=== PATIENT | female | born 1965 | race Caucasian/White ===

== ENCOUNTER → 2025-03-23 | Outpatient (CLI) | payer OTHER, SELFPAY ==
--- OUTSIDE RECORDS SUMMARY | 2025-03-23 08:31 | XMS RPT_ITS | CCD ---
Author Organization [facility] Care Team Providers Care Search Planner Name Role Phone Unavailable Primary Care Provider Unavailabl e ROMAR DO, DR BAEZ Primary Care Physician [phone] Mesfin PT, Vandana Unavailable Sophie GRACIA MD, DR MATEO Rahman Attending Unavailabl e ROMAR DO, DR BAEZ Primary Care Unavailable WILLIE , MARCK Attending Unavailable ROMAR DO, DR BAEZ Primary Care Unavailable SAMIA BARAJAS, DR MATEO Rahman Attending Unavailabl e ROMAR DO, DR BAEZ Primary Care Unavailable SAMIA BARAJAS, DR MATEO Rahman Attending Unavailabl e ROMAR DO, DR BAEZ Primary Care Unavailable ROMAR DO, DR BAEZ Primary Care Unavailable DEEP VELAZCO MD Attending Unavailable ROMAR DO, DR BAEZ Attending Unavailable ROMAR DO, DR BAEZ Primary Care Unavailable JHOANA HINOJOSA MD Attending Unavailable ROMAR DO, DR BAEZ Primary Care Unavailable ROMAR DO, DR BAEZ Attending Unavailable ROMAR DO, DR BAEZ Primary Care Unavailable SAMIA BARAJAS, DR MATEO Rahman Attending Unavailabl e ROMAR DO, DR BAEZ Primary Care Unavailable ROMAR DO, DR BAEZ Primary Care Unavailable ROMAR DO, DR BAEZ Attending Unavailable FROMMELT , MADY Attending Unavailable ROMAR DO, DR BAEZ Primary Care Unavailable WILLIE , MARCK Consulting Unavailable WILLIE , MARCK Attending Unavailable ROMAR DO, DR BAEZ Primary Care Unavailable Unavailable Primary Care Provider Unavailabl e James DODGE, Luis Primary Care Provider [phone] Unavailable Primary Care Provider UnavailMATEO Witt Referring Unavailable RAFAEL LOZANO Attending Unavailable LUIS RAMIREZ Primary Care Unavailable LUIS RAMIREZ Primary Care Unavailable YENIFER VINES Referring Unavailable GERA FRANCOIS Attending Unavailable YENIFER VINES Attending Unavailable ROXANNA CHAPA Referring Unavailable ROXANNA CHAPA Referring Unavailable ROMASHKAN DO, DR BAEZ Primary Care Unavailable SAMIA BARAJAS, DR MATEO Rahman Attending Unavailabl e ROMAR DO, DR BAEZ Primary Care Unavailable SAMIA BARAJAS, DR MATEO Rahman Attending Unavailabl e ROMAR DO, DR BAEZ Primary Care Unavailable SAMIA BARAJAS, DR MATEO Rahman Attending Unavailabl e ROMAR DO, DR BAEZ Primary Care Unavailable SAMIA BARAJAS, HYACINTH Attending Unavailable ROMAR DO, DR BAEZ Primary Care Unavailable ROMAR DO, DR BAEZ Consulting Unavailable SEFFEHARRISON WATCH TRAIN ASSEMBLER-SQL SERVER CONSULTANT, EVAN Attending Unavai labneetu RAMIREZ DO, DR BAEZ Primary Care Unavailable SAMIA BARAJAS, DR MATEO Rahman Attending Unavailabl e JAMES DO, DR BAEZ Primary Care Unavailable SAMIA BARAJAS, DR MATEO Rahman Attending UnavailLuis Turner Primary Care Unavailable Assessment, Health Risk Attending UnavailAUSTYN Graves Referring Unavailable AUSTYN AVENDANO Attending Unavailable Luis Ramirez Primary Care Unavailable Allergies Allergy Classification Reported Allergen(s) Allergy Type Date of Onset Reaction(s) Facility (20 sources) Codeine; Translations: [codeine] Drug Allergy 7 Intolerance, GI Upset [facility] (1 source) ALLERGIES NOT ON FILE; Translations: [ALLERGIES NOT ON FILE] Propensity to adverse reactions (disorder) [facility] 2 Repository (1 source) Codeine Drug Allergy 5 [facility] Repository Medications Current Medications Medication Drug Class(es) Dates Sig (Normalized) Sig (Original) acetaminophen 325 mg / HYDROcodone bitartrate 5 mg oral tablet (2 sources) Opioid Agonist Start: 01-07-2023 End: 01-14-2023 take 1 tablet by mouth every four hours as needed for pain [place] 325- 5 mg oral tablet Dose = 1 tab(s), Oral, q4h, PRN as needed for pain, X 7 day(s), # 20 tab(s), 0 Refill(s), Pharmacy: [facility]/pharmacy #[id number], 162.6, cm, 01/07/23 11:35:00 EDT, Height, 64, kg, 01/07/23 11:35:00 EDT, Dosing Weight Start Date: 01/07/23 Stop Date: 01/14/23 Status: Ordered DOCOSAHEXANOIC ACID/EPA (FISH OIL ORAL) (13 sources) DOCOSAHEXANOIC ACID/EPA (FISH OIL ORAL) Take by mouth. Active DOCOSAHEXANOIC A VETO/EPA (FISH OIL ORAL) Take by mouth. 0 Active Comment on above: Take by mouth. ergocalciferol, vitamin D2, (VITAMIN D2 ORAL) (13 sources) ergocalciferol, vitamin D2, (VITAMIN D2 ORAL) Take by mouth. Active ergocalciferol, vitamin D2, (VITAMIN D2 ORAL) Take by mouth. 0 Active Comment on above: Take by mouth. Estradiol (9 sources) Estrogen ESTRADIOL ORAL T holley by mouth. Estriold 2mg/ Estradiol 0.25mg/ estrone 0.25/ DHEA 5mg/ testosterone 0.5mg/ progesterone 200mg BELLA Active Fish Oils (12 sources) Start: 12-23-2022 Fish Oil 1000 mg oral capsule Dose : 1,000 mg = 1 cap(s), Oral, qDay, # 90 cap(s), 0 Refill(s) Start Date: 12/23/22 Status: Ordered Medication Dispense Status: Completed Quantity: 90.0 Unit: cap(s) Total Allowed Fills: 1 Fills Dispensed: 0 Start: 12-23-2022 Fish Oil 1000 mg oral capsule Dose : 1,000 mg = 1 cap(s), Oral, qDay, # 90 cap(s), 0 Refill(s) Start Date: 12/23/22 Status: Ordered Quantity: 90.0 Unit: cap(s) Repeat number: 1 Start: 12-23-2022 Fish Oil 1000 mg oral capsule Dose : 1,000 mg = 1 cap(s), Oral, qDay, # 90 cap(s), 0 Refill(s) Start Date: 12/23/22 Status: Ordered herbal/nutritional product (12 sources) Start: 12-23-2022 take 1 capsule by mouth once daily herbal/nutritional product 1 CAP, Oral, Daily, CURAMED, 0 Refill(s) Start Date: 12/23/22 Status: Ordered Medication Dispense Status: Completed Total Allowed Fills: 1 Fills Dispensed: 0 Start: 12-23-2022 take 1 capsule by mo uth once daily herbal/nutritional product 1 CAP, Oral, Daily, CURAMED, 0 Refill(s) Start Date: 12/23/22 Status: Ordered Repeat number: 1 Start: 12-23-2022 take 1 capsule by [facility] once daily herbal/nutritional product 1 CAP, Oral, Daily, CURAMED, 0 Refill(s) Start Date: 12/23/22 Status: Ordered hydrocortisone 25 mg/ml topical cream (3 sources) Corticosteroid Start: 10-29-2022 End: 11-08-2022 hydrocortisone 2.5% topical cream 1, Topical, TID, X 5 day(s), # 20 gram(s), 1 Refill(s), Pharmacy: [facility]/pharmacy #[id number], 162.7, cm, 10/29/22 8:29:00 EDT, Height, 64.3 Start Date: 10/29/22 Stop Date: 11/08/22 Status: Ordered Iodine liqd (13 sources) Iodine liqd Acti ve Iodine liqd magnesium gluconate 250 mg oral tablet (12 sources) Start: 12-23-2022 take 2 tablets by mouth once daily at bedtime magnesium gluconate 250 mg oral tablet 500 mg Dose = 2 tab(s), Oral, qHS, # 30 tab(s), 0 Refill(s) Start Date: 12/23/22 Status: Ordered Medication Dispense Status: Completed Quantity: 30.0 Unit: tab(s) Total Allowed Fills: 1 Fills Dispensed: 0 magnesium glycinate 100 mg oral tablet (13 sources) Magnesium Glycin ate 100 mg tab Active Methyl B-12 (4 sources) Start: 05-16-2024 Methyl B-12 Ch ewed, qDay, 0 Refill(s) Start Date: 05/16/24 Status: Ordered Medication Dispense Status: Completed Total Allowed Fills: 1 Fills Dispensed: 0 Start: 05-16-2024 Methyl B-12 Ch ewed, qDay, 0 Refill(s) Start Date: 05/16/24 Status: Ordered Repeat number: 1 Misc Medication (18 sources) Start: 07-18-2020 Misc Medicatio n hormone replacement cream, 0 Refill(s), 64.8 Start Date: 07/18/20 Status: Ordered Medication Dispense Status: Completed Total Allowed Fills: 1 Fills Dispensed: 0 Start: 07-18-2020 Misc Medicatio n hormone replacement cream, 0 Refill(s), 64.8 Start Date: 07/18/20 Status: Ordered Repeat number: 1 Start: 07-18-2020 Misc Medicatio n hormone replacement cream, 0 Refill(s), 64.8 Start Date: 07/18/20 Status: Ordered Multivitamin preparation (12 sources) Start: 12-23-2022 take 1 tablet by mouth once daily Multivitamin Dose = 1 tab(s), Oral, Daily, 0 Refill(s) Start Date: 12/23/22 Status: Ordered Medication Dispense Status: Completed Total Allowed Fills: 1 Fills Dispensed: 0 Start: 12-23-2022 take 1 tablet by bruna th once daily Multivitamin Dose = 1 tab(s), Oral, Daily, 0 Refill(s) Start Date: 12/23/22 Status: Ordered Repeat number: 1 Start: 12-23-2022 take 1 tablet by bruna th once daily Multivitamin Dose = 1 tab(s), Oral, Daily, 0 Refill(s) Start Date: 12/23/22 Status: Ordered MULTIVITAMIN TAB (13 sources) Start: 04-03-2008 MULTIVITAMIN T AB Take one(1) tablet daily. 0 04/03/2008 Active Comment on above: Take one(1) tablet d aily. polyethylene glycol 3350 797402 mg / potassium chloride 2970 mg / sodium bicarbonate 6740 mg / sodium chloride 5860 mg / sodium sulfate 07573 mg powder for oral solution (3 sources) Osmotic Laxative Start: 01-03-2024 End: 01-03-2024 peg 3350-Electrolytes (GOLYTELY) 236-22.74-6.74 -5.86 gram suspension Indications: Screen for colon cancer Take 4,000 mL by mouth one time only for 1 dose. Refer to printed prep instructions from your provider. 4000 mL 01/03/2024 01/03/2024 Active Completed/Discontinued Medications Medication Drug Class(es) Dates Sig (Normalized) Sig (Original) Ascorbic Acid (2 sources) Vitamin C End: 10-31-2021 ascorbic acid (VITAMIN C ORAL) Take by mouth. 0 10/31/2021 Discontinued (Course of therapy completed) ascorbic acid (V ITAMIN C ORAL) Take by mouth. 0 Active Comment on above: Take by mouth. calcium chloride 0.0014 meq/ml / potassium chloride 0.004 meq/ml / sodium chloride 0.103 meq/ml / sodium lactate 0.028 meq/ml injectable solution (1 source) Start: 2023 End: 2023 take 75 mL intravenously every hour 75 mL/hr, INTRAVENOUS, CONTINUOUS, Starting on Wed01/11/24 at 0830, Until Wed01/11/24 at 0945, Preprocedure diphenhydrAMINE (1 source) Histamine-1 Receptor Antagonist Start: 2023 End: 2023 12.5-50 mg, INTRAVENOUS, DIRECTED, Starting on Wed01/11/24 at 0900, Until Wed01/11/24 at 1259, DOSING DIRECTED BY PHYSICIAN FOR PROCEDURAL SEDATION ONLY, Intraprocedure [id number] 0.3 ml EPINEPHrine 1 mg/ml auto-injector (20 sources) alpha-Adrenergic Agonist, beta-Adrenergic Agonist, Catecholamine Start: 2020 EpiPen 2-Etienne 0.3 mg injectable kit Dose : 0.3 mg =, Intramuscular, AsDirected, PRN Allergic reaction, may repeat if necessary after 5 minutes, go to the emergency department if used., # 1 kit(s), 0 Refill(s), Pharmacy: [facility]/pharmacy #[id number], 161, cm, 08/08/20 16:33:00 EDT, Height, kg, 08/08/20 16:33:00 EDT, Dosing Weight Start Date: 12/06/20 Status: Ordered Medication Dispense Status: Completed Quantity: 1.0 Unit: kit(s) Total Allowed Fills: 1 Fills Dispensed: 0 Start: 08-02-2019 EPINEPHrine (E PIPEN) 0.3 mg/0.3 mL auto-injector USE DIRECTED NEEDED FOR ALLERGIC REACTION 08/02/2019 Active Comment on above: USE DIRECTED N EEDED FOR ALLERGIC REACTION 1 ml fentaNYL 0.05 mg/ml injection (1 source) Opioid Agonist Start: 01-11-2024 End: 01-11-2024 25-100 mcg, INTRAVENOUS, DIRECTED, Starting on Wed01/11/24 at 0900, Until Wed01/11/24 at 1259, DOSING DIRECTED BY PHYSICIAN FOR PROCEDURAL SEDATION ONLY, Intraprocedure 5 ml midazolam 1 mg/ml injection (1 source) Benzodiazepine Start: 01-11-2024 End: 01-11-2024 1-5 mg, INTRAVENOUS, DIRECTED, Starting on Wed01/11/24 at 0900, Until Wed01/11/24 at 1259, DOSING DIRECTED BY PHYSICIAN FOR PROCEDURAL SEDATION ONLY, Intraprocedure QUERCETIN DIHYDRATE, BULK, MISC (9 sources) Start: 10-15-2020 End: 01-03-2024 QUERCETIN DIHYDRATE, BULK, MISC 10/15/2020 01/03/2024 Discontinued (Discontinued by Patient) Start: 10-15-2020 QUERCETIN DIHY DRATE, BULK, MISC topical cream metered-dose d ev luz (9 sources) End: 01-03-2024 topical cream metered-dose d ev luz Hormone replacement cream 01/03/2024 Discontinued (Discontinued by Patient) topical cream me tered-dose dev luz Hormone replacement cream 0 Active Comment on above: Hormone replacement cream Problems Active Problems Problem Classification Problem Date Documented Date Episodic/Chronic Calculus of urinary tract (20 sources) Kidney stone; Translations: [Urolith] 07-18-2020 Episodic Chronic kidney disease (18 sources) Chronic kidney disease stage 3A 08-08-2020 Chronic Chronic obstructive pulmonary disease and bronchiectasis (18 sources) Chronic obstructive lung disease 07-18-2020 Chronic Diseases of white blood cells (10 sources) Leukopenia 08-08-2020 Chronic Disorders of lipid metabolism (4 sources) Hyperlipidemia; Translations: [Hyperlipidemia, unspecified] Onset: 04-01-2024 04-01-2024 Chronic Immunizations and screening for infectious disease (9 sources) Patient encounter status; Translations: [Encounter for screening for human papillomavirus (HPV)] Onset: 01-11-2024 12-31-2023 Episodic Nonmalignant breast conditions (1 source) Breast finding ; Translations: [Dense breast tissue] 01-01-2025 Episodic Osteoarthritis (18 sources) [place] node 08-12-2020 Chronic Other circulatory disease (18 sources) Respiratory crackles 07-18-2020 Episodic Other congenital anomalies (15 sources) Thyroglossal duct cyst 10-22-2022 Chronic Other congenital anomalies (2 sources) Congenital malformations of other endocrine glands; 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] Onset: 01-07-2023 Chronic Other connective tissue disease (1 source) Acquired trigger finger of left middle finger; Translations: [Trigger finger, left middle finger] Episodic Other connective tissue disease (1 source) Acquired trigger finger of right middle finger; Translations: [Trigger finger, right middle finger] Episodic Other connective tissue disease (20 sources) Triggering of digit; Translations: [Trigger finger, right little finger] Onset: 08-29-2020 08-29-2020 Episodic Other connective tissue disease (18 sources) Pain in finger 07-18-2020 Episodic Other hematologic conditions (18 sources) History of immune disorder 12-06-2020 Episodic Other lower respiratory disease (1 source) Shortness of breath; Translations: [Shortness of breath] Onset: 03-20-2025 Episodic Other lower respiratory disease (1 source) Other disorders of lung; Translations: [Other disorders of lung] Onset: 03-20-2025 Episodic Other screening for suspected conditions (not mental disorders or infectious disease) (18 sources) Imaging of thorax abnormal 07-18-2020 Chronic Other screening for suspected conditions (not mental disorders or infectious disease) (4 sources) Cancer cervix screening status; Translations: [Encounter for screening for malignant neoplasm of cervix] Onset: 01-11-2024 12-31-2023 Episodic Other skin disorders (17 sources) Mass of neck 09-02-2022 Episodic Other skin disorders (15 sources) Inflammatory dermatosis 10-29-2022 Episodic Thyroid disorders (16 sources) Mass of thyroid gland 10-07-2022 Chronic Unclassified (18 sources) 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 07-18-2020 Unclassified (9 sources) Glomerular filtration rate decreased 03-01-2023 Unclassified (1 source) Dense breast tissue; Translations: [Dense breast tissue] Onset: 01-01-2025 Past or Other Problems Problem Classification Problem Date Documented Date Episodic/Chronic Intestinal obstruction without hernia (13 sources) 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 Out See Comments Normal [facility] Comment on above: Order Comment: omega check whole blood to [place] [id number] Performed By: #### M ISC ####[facility] [place] [id number] 02-08-2025 Reverse T3 10.5 ng/dL Normal 9.2-24.1 [facility] Comment on above: Result Comment: This test was developed and its performance characteristics determined by [facility]. It has not been cleared or approved by the Food and Drug Administration. Performed At: [facility] [id number] Dontrell Mayberry MD Ph:[phone] Performed By: #### TOM SHEA, E2 #### [place] [address] #### [id number], [id number] #### [place] [address] [place], [place] [address] NMRLPDon 02-05-2025 Cholesterol [Mass/Vol] 184 mg/dL Normal 100-199 [facility] Comment on above: Result Comment: This test was developed and its performance characteristics determined by [facility]. It has not been cleared or approved by the Food and Drug Administration. Performed By: #### TOM SHEA, E2 #### [place] [address] #### [id number], [id number] #### [place] [address] [place], [place] [address] Cholesterol in HDL [Mass/Vol] 68 mg/dL Normal >39 [facility] Comment on above: Result Comment: This test was developed and its performance characteristics determined by [facility]. It has not been cleared or approved by the Food and Drug Administration. Performed By: #### TOM SHEA, E2 #### [address] [address] #### [id number], [id number] #### [facility] [address] [place], [place] [address] Cholesterol in LDL [Mass/Vol] 99 mg/dL Normal 0-99 [facility] Comment on above: Result Comment: Optimal < 100 Above optimal 100 - 129 Borderline 130 - 159 High 160 - 189 Very high > 189 Performed By: #### TOM SHEA, E2 #### [place] [id number] #### [id number], [id number] #### [facility] [address] [place], [place] [address] HDL-P Total 37.5 umol/l Normal >=30.5 [facility] Comment on above: Result Comment: This test was developed and its performance characteristics determined by [facility]. It has not been cleared or approved by the Food and Drug Administration. Performed By: #### TOM SHEA, E2 #### [place] [id number] #### [id number], [id number] #### [place] [address] [place], [place] [address] LDL Size 21.5 nm Normal >20.5 [facility] Comment on above: Result Comment: This test was developed and its performance characteristics determined by [facility]. It has not been cleared or approved by the Food and Drug Administration. INTERPRETATIVE INFORMATION PARTICLE CONCENTRATION AND SIZE <--Lower CVD Risk Higher CVD Risk--> LDL AND HDL PARTICLES Percentile in Reference Population HDL-P (total) High 75th 50th 25th Low >34.9 34.9 30.5 26.7 <26.7 Small LDL-P Low 25th 50th 75th High <117 117 527 839 >839 LDL Size <-Large (Pattern A)-> <-Small (Pattern B)-> 23.0 20.6 20.5 19.0 Small LDL-P and LDL Size are associated with CVD risk, but not after LDL-P is taken into account. Performed By: #### TOM SHEA, E2 #### [place] [address] #### [id number], [id number] #### [place] [address] [place], [place] [address] LDL-P 1116 nmol/L High <1000 [facility] Comment on above: Result Comment: This test was developed and its performance characteristics determined by [facility]. It has not been cleared or approved by the Food and Drug Administration. Low < 1000 Moderate 1000 - 1299 Borderline-High 1300 - 1599 High 1600 - 2000 Very High > 2000 Performed By: #### TOM SHEA, E2 #### [place] [address] #### [id number], [id number] #### [place] [address] [place], [place] [address] LP-IR Score 32 Normal <=45 [facility] Comment on above: Result Comment: This test was developed and its performance characteristics determined by [facility]. It has not been cleared or approved by the Food and Drug Administration. INSULIN RESISTANCE MARKER <--Insulin Sensitive Insulin Resistant--> Percentile in Reference Population Insulin Resistance Score LP-IR Score Low 25th 50th 75th High <27 27 45 63 >63 LP-IR Score is inaccurate if patient is non-fasting. The LP-IR score is a laboratory developed index that has been associated with insulin resistance and diabetes risk and should be used as one component of a physician's clinical assessment. Performed At: [address] [id number] Dontrell Mayberry MD Ph:[phone] Performed By: #### TOM SHEA, E2 #### [address] [address] #### [id number], [id number] #### [place] [address] [place], [place] [address] Small LDL-P (LC) 326 nmol/L Normal <=527 [facility] Comment on above: Result Comment: This test was developed and its performance characteristics determined by [facility]. It has not been cleared or approved by the Food and Drug Administration. Performed By: #### TOM SHEA, E2 #### [place] [address] #### [id number], [id number] #### [address] [address] Triglyceride [Mass/Vol] 97 mg/dL Normal 0-149 [facility] Comment on above: Result Comment: This test was developed and its performance characteristics determined by [facility]. It has not been cleared or approved by the Food and Drug Administration. Performed By: #### TOM SHEA, E2 #### [place] [address] #### [id number], [id number] #### [address] [address] DHEAUon 02-03-2025 DHEA. 114 ng/dL Normal 21-402 [facility] Comment on above: Result Comment: This test was developed and its performance characteristics determined by [facility]. It has not been cleared or approved by the Food and Drug Administration. Performed At: [address] [id number] Dontrell Mayberry MD Ph:[phone] Performed By: #### TOM SHEA, E2 #### [place] [address] #### [id number], [id number] #### [address] [address] TFTESTon 02-03-2025 Free Testost Direct 0.6 pg/mL Normal 0.0-4.2 [facility] Comment on above: Result Comment: Perf ormed At: [address] [id number] Dontrell Mayberry MD Ph:[phone] Performed At: [place] [address] [place], [place] [id number] Unique Lindquist PhD Ph:[phone] Performed By: #### TOM SHEA, E2 #### [place] [address] #### [id number], [id number] #### [address] [address] Testosterone Lvl 18 ng/dL Normal 4-50 [facility] Comment on above: Performed By: #### TOM SHEA, E2 #### [place] [address] #### [id number], [id number] #### [address] [address] .Auto Diffon 02-02-2025 Basophil, Absolute 0.0 10 3/mcL Normal 0.0-0.3 [facility] Comment on above: Performed By: #### TOM SHEA, E2 #### [place] [address] #### [id number], [id number] #### [address] [address] Basophils/100 WBC (Bld) 0.7 % Normal 0.0-2.5 [facility] Comment on above: Performed By: #### TOM SHEA, E2 #### [place] [address] #### [id number], 913331 #### [address] [address] Eosinophil, Absolute 0.1 10 3/mcL Normal 0.0-0.7 [facility] Comment on above: Performed By: #### TOM SHEA, E2 #### [place] [address] #### [id number], [id number] #### [address] [address] Eosinophils/100 WBC (Bld) 2.3 % Normal 0.0-6.0 [facility] Comment on above: Performed By: #### PRO MONSEG, E2 #### [place] [address] #### [id number], 107915 #### [address] [address] Lymphocyte, Absolute 2.2 10 3/mcL Normal 0.9-4.3 [facility] Comment on above: Performed By: #### PRO MONSEG, E2 #### [place] [address] #### 128706, [id number] #### [address] [address] Lymphocytes/100 WBC (Bld) 47.7 % High 20.0-40.0 [facility] Comment on above: Performed By: #### PRO MONSEG, E2 #### [place] [address] #### [id number], [id number] #### [address] [address] Monocyte, Absolute 0.3 10 3/mcL Normal 0.1-1.4 [facility] Comment on above: Performed By: #### PRO MONSEG, E2 #### [place] [address] #### [id number], [id number] #### [address] [address] Monocytes/100 WBC (Bld) 6.3 % Normal 2.0-13.0 [facility] Comment on above: Performed By: #### Naty BURT PROG, E2 #### [place] [address] #### [id number], [id number] #### [address] [address] Neutrophils/100 WBC (Bld) 43.0 % Low 50.0-75.0 [facility] Comment on above: Performed By: #### PRO MONSEG, E2 #### [place] [address] #### [id number], 060126 #### [address] [address] .GFRon 02-02-2025 Estimated Glomerular Filtration Rate 66 ml/min/1.73sqm Normal [facility] Comment on above: Result Comment: Stages of Chronic Kidney Disease (CKD) Stage Description eGFR(ml/min/1.73 sq.m.) CKD 1 Normal kidney function or >=90 normal kindney function with possible kidney damage (ex. Proteinuria) CKD 2 Kidney damage with mild loss 60-89 of kidney function CKD 3a Mild to moderate loss of kidney 45-59 function CKD 3b Moderate to severe loss of 30-44 of kindey function CKD 4 Severe loss of kidney function 15-29 CKD 5 Kidney failure <15 Note: (go live 2024) the eGFR calculation was updated to the 2020 CKD-EPI creatinine equation without a race factor to calculate the eGFR results. Performed By: #### TOM SHEA, E2 #### [place] [address] #### [id number], [id number] #### [address] [address] .NEUABSon 02-02-2025 Neutrophil, Absolute 2.0 10 3/mcL Low 2.3-8.1 [facility] Comment on above: Performed By: #### TOM SHEA, E2 #### [place] [address] #### [id number], 776190 #### [address] [address] A1Con 02-02-2025 Glucose [Mass/Vol] 114 mg/dL Normal [facility] Comment on above: Result Comment: Shabana mated Average Glucose calculated by equation ((28.7xA1C)-46.7) Estimated average glucose (eAG) is a calculated value from Hemoglobin A1C and is business services sales representative of the average blood glucose level in the last 2-3 month period. Normal range: less than 114 mg/dL Performed By: #### TOM SHEA, E2 #### [place] [id number] #### [id number], 223579 #### [address] [address] HbA1c (Bld) [Mass fraction] 5.6 % Normal 4.3-6.4 [facility] Comment on above: Performed By: #### TOM SHEA, E2 #### [place] [address] #### [id number], 163968 #### [address] [address] B12on 02-02-2025 Cobalamin (Vitamin B12) [Mass/Vol] 1800 pg/mL High 211-911 [facility] Comment on above: Performed By: #### TOM SHEA, E2 #### [place] [address] #### [id number], 268072 #### [place] [id number] CBCon 02-02-2025 Erythrocyte distribution width (RBC) [Ratio] 13.3 % Normal 11.5-15.5 [facility] Comment on above: Performed By: #### TOM SHEA, E2 #### [place] [address] #### [id number], 929300 #### [address] [address] Hematocrit (Bld) [Volume fraction] 40.9 % Normal 34.0-46.0 [facility] Comment on above: Performed By: #### TOM SHEA, E2 #### [place] [address] #### 623107, 765112 #### [address] [address] Hgb 14.1 G/dL Normal 12.0-16.0 [facility] Comment on above: Performed By: #### TOM SHEA, E2 #### [place] [address] #### [id number], 943121 #### [address] [address] MCH (RBC) [Entitic mass] 31.3 pg Normal 27.0-33.0 [facility] Comment on above: Performed By: #### TOM SHEA, E2 #### [place] [address] #### 572992, 850636 #### [address] [address] MCHC 34.6 G/dL Normal 32.0-36.0 [facility] Comment on above: Performed By: #### TOM SHEA, E2 #### [place] [address] #### 885842, 405556 #### [address] [address] MCV (RBC) [Entitic vol] 90.5 fL Normal 80.0-99.0 [facility] Comment on above: Performed By: #### TOM SHEA, E2 #### [place] [address] #### [id number], 730012 #### [address] [address] Platelet 299 10 3/mcL Normal 150-450 [facility] Comment on above: Performed By: #### TOM SHEA, E2 #### [place] [address] #### 283321, 188254 #### [address] [address] Platelet mean volume (Bld) [Entitic vol] 7.5 fL Normal 6.6-10.5 [facility] Comment on above: Performed By: #### TOM SHEA, E2 #### [place] [address] #### [id number], 625224 #### [address] [address] RBC 4.52 10 6/mcL Normal 4.10-5.30 [facility] Comment on above: Performed By: #### TOM SHEA, E2 #### [place] [address] #### [id number], 395055 #### [address] [address] WBC 4.6 10 3/mcL Normal 4.5-10.8 [facility] Comment on above: Performed By: #### TOM SHEA, E2 #### [place] [address] #### 082510, 018766 #### [address] [address] CMPon 02-02-2025 Albumin Level 3.4 G/dL Low 3.5-5.0 [facility] Comment on above: Performed By: #### TOM SHEA, E2 #### [place] [address] #### 252377, 597209 #### [address] [address] Albumin/Globulin [Mass ratio] 0.9 {ratio} Low 1.1-2.5 [facility] Comment on above: Performed By: #### TOM SHEA, E2 #### [place] [address] #### 566965, 904466 #### [address] [address] ALP [Catalytic activity/Vol] 53 U/L Normal 40-135 [facility] Comment on above: Performed By: #### TOM SHEA, E2 #### [place] [address] #### 543741, 987228 #### [address] [address] ALT [Catalytic activity/Vol] 29 U/L Normal 14-59 [facility] Comment on above: Performed By: #### TOM SHEA, E2 #### [place] [address] #### 409514, 413272 #### [address] [address] AST [Catalytic activity/Vol] 15 U/L Normal 10-40 [facility] Comment on above: Performed By: #### PRO MONSEG, E2 #### [place] [address] #### 066885, 848071 #### [address] [address] Bili Total 0.6 mg/dL Normal 0.2-1.0 [facility] Comment on above: Result Comment: Use of this assay is not recommended for patients undergoing treatment with eltrombopag due to the potential for falsely elevated results. Performed By: #### PRO MONSEG, E2 #### [place] [address] #### 527199, 903475 #### [address] [address] BUN/Creatinine Ratio 22 ratio Normal 7-27 [facility] Comment on above: Performed By: #### PRO MONSEG, E2 #### [place] [address] #### 675514, 674756 #### [address] [address] Calcium [Mass/Vol] 8.5 mg/dL Normal 8.4-10.2 [facility] Comment on above: Performed By: #### PRO MONSEG, E2 #### [place] [address] #### 581990, 417356 #### [address] [address] Chloride [Moles/Vol] 106 mmol/L Normal 98-107 [facility] Comment on above: Performed By: #### PRO MONSEG, E2 #### [place] [address] #### 350327, 230529 #### [address] [address] CO2 [Moles/Vol] 31 mmol/L High 22-29 [facility] Comment on above: Performed By: #### TOM SHEA, E2 #### [place] [address] #### 939653, 023777 #### [address] [address] Creatinine [Mass/Vol] 0.98 mg/dL High 0.51-0.95 [facility] Comment on above: Performed By: #### TOM SHEA, E2 #### [place] [address] #### 926247, 652643 #### [address] [address] Electrolyte Balance 7.0 mEq/L Normal 4.0-15.0 [facility] Comment on above: Performed By: #### TOM SHEA, E2 #### [place] [address] #### 520780, 718291 #### [address] [address] Globulin 3.8 G/dL Normal 2.7-4.4 [facility] Comment on above: Performed By: #### TOM SHEA, E2 #### [place] [address] #### 158369, 854454 #### [address] [address] Glucose [Mass/Vol] 89 mg/dL Normal 70-105 [facility] Comment on above: Performed By: #### TOM SHEA, E2 #### [place] [address] #### 684851, 621044 #### [address] [address] Potassium [Moles/Vol] 4.2 mmol/L Normal 3.5-5.1 [facility] Comment on above: Performed By: #### PRO MONSEG, E2 #### [place] [address] #### 300836, 187475 #### [address] [address] Sodium [Moles/Vol] 144 mmol/L Normal 136-145 [facility] Comment on above: Performed By: #### Naty BURT PROG, E2 #### [place] [address] #### 747551, 947835 #### [address] [address] Total Protein 7.2 G/dL Normal 6.4-8.2 [facility] Comment on above: Performed By: #### PRO MONSEG, E2 #### [place] [address] #### 298772, 662161 #### [address] [address] Urea nitrogen [Mass/Vol] 22 mg/dL High 12-01 [facility] Comment on above: Performed By: #### PRO MONSEG, E2 #### [place] [address] #### 704070, 005500 #### [address] [address] CORTon 02-02-2025 Cortisol Level 13.8 mcg/dL Normal [facility] Comment on above: Result Comment: Neymar isol AM Reference Range 6.5-26.0 mcg/dL Cortisol PM Reference Range 3.5-15.0 mcg/dL Performed By: #### PRO MONSEG, E2 #### [place] [address] #### 817347, 995029 #### [address] [address] CRPHSon 02-02-2025 CRP, High Sensitive 1.19 mg/L Normal 0.20-3.00 [facility] Comment on above: Result Comment: Rela tive Risk Category and Average hs-CRP Level: Higher Risk: > 5.0 mg/L Guidelines support that hs-CRP can be used as an independent predictor of increased coronary risk; however, hs-CRP results should only be interpreted in conjunction with other cardiac risk factors in establishing overall cardiac risk for a given patient. Performed By: #### TOM SHEA, E2 #### [place] [address] #### 068692, 451554 #### [place] [address] FEon 02-02-2025 Iron [Mass/Vol] 143 ug/dL Normal 50-170 [facility] Comment on above: Performed By: #### TOM SHEA, E2 #### [place] [address] #### 179932, 468241 #### [address] [address] Jere 02-02-2025 Ferritin [Mass/Vol] 55.0 ng/mL Normal 8.0-252.0 [facility] Comment on above: Performed By: #### TOM SHEA, E2 #### [place] [address] #### 606372, 503224 #### [place] [address] FIBon 02-02-2025 Fibrinogen 329.0 mg/dL Normal 250.0-560.0 [facility] Comment on above: Performed By: #### TOM SHEA, E2 #### [place] [address] #### 220069, 658521 #### [address] [address] FOLon 02-02-2025 Folate 29.07 ng/mL High 5.38-24.00 [facility] Comment on above: Performed By: #### TOM SHEA, E2 #### [place] [address] #### 394342, 831792 #### [address] [address] FT3on 02-02-2025 Free T3 [Mass/Vol] 2.24 pg/mL Low 2.30-4.00 [facility] Comment on above: Performed By: #### PRO MONSEG, E2 #### [place] [address] #### 240097, 823010 #### [address] [address] FT4on 02-02-2025 Free T4 [Mass/Vol] 0.73 ng/dL Low 0.76-1.46 [facility] Comment on above: Performed By: #### TOM SHEA, E2 #### [place] [address] #### 580373, 564499 #### [address] [address] HOMOon 02-02-2025 Homocysteine 7.8 umol/l Normal 3.7-13.9 [facility] Comment on above: Result Comment: No te - New Reference Range in effect 19 Performed By: #### PRO MONSEG, E2 #### [place] [address] #### 271591, 752823 #### [address] [address] IBCon 02-02-2025 TIBC 305 mcg/dL Normal 250-450 [facility] Comment on above: Performed By: #### PRO MONSEG, E2 #### [place] [address] #### 526847, 864467 #### [address] [address] INSLNon 02-02-2025 Insulin 5.31 munit/L Normal 2.60-37.60 [facility] Comment on above: Performed By: #### D CARMEL, TOM, E2 #### [facility] [address] [place] [address] #### [id number], 821918 #### [facility] [address] [place], [place] [address] LABORATORYOrdered By: SYSTEM SYSTEM on 02-02-2025 25-hydroxyvitamin D3 [Mass/Vol] 85.2 ng/mL Invalid Interpretation Code AO ADM SS Comment on above: Interpretive Data: I nterpretive Values Based on Total 25(OH) Vitamin D: Deficient <20 ng/mL Insufficient 20 - <30 ng/mL Sufficient 30-100 ng/mL Albumin BCP dye [Mass/Vol] 3.4 G/dL Low 3.5 - 5.0 G/dL AO ADM SS Albumin/Globulin [Mass ratio] 0.9 {ratio} Low 1.1 - 2.5 ratio AO ADM SS ALP [Catalytic activity/Vol] 53 U/L Normal 40 - 135 U/L AO ADM SS ALT With P-5'-P [Catalytic activity/Vol] 29 U/L Normal 14 - 59 U/L AO ADM SS AST With P-5'-P [Catalytic activity/Vol] 15 U/L Normal 10 - 40 U/L AO ADM SS Basophils (Bld) [#/Vol] 0.0 103/mcL Normal 0.0 - 0.3 10^3/mcL AO Workflow SS Basophils/100 WBC (Bld) 0.7 % Normal 0.0 - 2.5 % AO Workflow SS Bilirubin [Mass/Vol] 0.6 mg/dL Normal 0.2 - 1 .0 mg/dL AO ADM SS Comment on above: Interpretive Data: U se of this assay is not recommended for patients undergoing treatment with eltrombopag due to the potential for falsely elevated results. Calcium [Mass/Vol] 8.5 mg/dL Normal 8.4 - 10. 2 mg/dL AO ADM SS Chloride [Moles/Vol] 106 mmol/L Normal 98 - 10 7 mmol/L AO ADM SS CO2 [Moles/Vol] 31 mmol/L High 22 - 29 mmol/L AO ADM SS Cobalamin (Vitamin B12) [Mass/Vol] 1800 pg/mL High 211 - 911 pg/mL AH ADM SS Cortisol [Mass/Vol] 13.8 ug/dL Invalid Interpretation Code AH ADM SS Comment on above: Interpretive Data: C ortisol AM Reference Range 6.5-26.0 mcg/dL Cortisol PM Reference Range 3.5-15.0 mcg/dL Creatinine [Mass/Vol] 0.98 mg/dL High 0.51 - 0.95 mg/dL AO ADM SS CRP High sensitivity method [Mass/Vol] 1.19 mg/L Normal 0.20 - 3.00 mg/L AH ADM SS Comment on above: Interpretive Data: R elative Risk Category and Average hs-CRP Level: Higher Risk: > 5.0 mg/L Guidelines support that hs-CRP can be used as an independent predictor of increased coronary risk; however, hs-CRP results should only be interpreted in conjunction with other cardiac risk factors in establishing overall cardiac risk for a given patient. Electrolyte Balance 7.0 mEq/L Normal 4.0 - 15 .0 mEq/L AO ADM SS Eosinophil, Absolute 0.1 103/mcL Normal 0.0 - 0 .7 10^3/mcL AO Workflow SS Eosinophils/100 WBC (Bld) 2.3 % Normal 0.0 - 6.0 % AO Workflow SS Erythrocyte distribution width (RBC) [Ratio] 13.3 % Normal 11.5 - 15.5 % AO Workflow SS Estimated Glomerular Filtration Rate 66 ml/min/1.73sqm Invalid Interpretation Code AO Chemistry S Comment on above: Interpretive Data: Stages of Chronic Kidney Disease (CKD) Stage Description eGFR(ml/min/1.73 sq.m.) CKD 1 Normal kidney function or >=90 normal kindney function with possible kidney damage (ex. Proteinuria) CKD 2 Kidney damage with mild loss 60-89 of kidney function CKD 3a Mild to moderate loss of kidney 45-59 function CKD 3b Moderate to severe loss of 30-44 of kindey function CKD 4 Severe loss of kidney function 15-29 CKD 5 Kidney failure <15 Note: (go live 2024) the eGFR calculation was updated to the 2020 CKD-EPI creatinine equation without a race factor to calculate the eGFR results. Ferritin [Mass/Vol] 55.0 ng/mL Normal 8.0 - 25 2.0 ng/mL AO ADM SS Fibrinogen Coag (PPP) [Mass/Vol] 329.0 mg/dL Normal 250.0 - 560.0 mg/dL AO HemoHub SS Folate [Mass/Vol] 29.07 ng/mL High 5.38 - 24. 00 ng/mL AH ADM SS Free T3 [Mass/Vol] 2.24 pg/mL Low 2.30 - 4. 00 pg/mL AO ADM SS Free T4 [Mass/Vol] 0.73 ng/dL Low 0.76 - 1. 46 ng/dL AO ADM SS Globulin 3.8 G/dL Normal 2.7 - 4.4 G/dL AO ADM SS Glucose [Mass/Vol] 89 mg/dL Normal 70 - 105 mg/dL AO ADM SS Glucose [Mass/Vol] 114 mg/dL Invalid Interpretation Code AO Chemistry S Comment on above: Interpretive Data: E stimated average glucose (eAG) is a calculated value from Hemoglobin A1C and is business services sales representative of the average blood glucose level in the last 2-3 month period. Normal range: less than 114 mg/dL HbA1c (Bld) [Mass fraction] 5.6 % Normal 4.3 - 6.4 % AO ADM SS Hematocrit (Bld) [Volume fraction] 40.9 % Normal 34.0 - 46.0 % AO Workflow SS Hemoglobin (Bld) [Mass/Vol] 14.1 G/dL Normal 12.0 - 16.0 G/dL AO Workflow SS Homocysteine [Moles/Vol] 7.8 umol/L Normal 3.7 - 13.9 umol/L AH ADM SS Comment on above: Interpretive Data: * *Note - New Reference Range in effect 19 Insulin Qn 5.31 munit/L Normal 2.60 - 37.60 mU/L ADM SS Iron [Mass/Vol] 143 ug/dL Normal 50 - 170 mcg/dL AO ADM SS Iron binding capacity [Mass/Vol] 305 mcg/dL Normal 250 - 450 mcg/dL AO ADM SS Lymphocytes (Bld) [#/Vol] 2.2 103/mcL Normal 0.9 - 4.3 10^3/mcL AO Workflow SS Lymphocytes/100 WBC (Bld) 47.7 % High 20.0 - 40.0 % AO Workflow SS MCH (RBC) [Entitic mass] 31.3 pg Normal 27.0 - 33.0 pg AO Workflow SS MCHC 34.6 G/dL Normal 32.0 - 36.0 G/dL AO Workflow SS MCV (RBC) [Entitic vol] 90.5 fL Normal 80.0 - 99.0 fL AO Workflow SS Monocytes (Bld) [#/Vol] 0.3 103/mcL Normal 0.1 - 1.4 10^3/mcL AO Workflow SS Monocytes/100 WBC (Bld) 6.3 % Normal 2.0 - 13.0 % AO Workflow SS Neutrophils (Bld) [#/Vol] 2.0 103/mcL Low 2.3 - 8.1 10^3/mcL AO Workflow SS Neutrophils/100 WBC (Bld) 43.0 % Low 50.0 - 75.0 % AO Workflow SS Platelet mean volume (Bld) [Entitic vol] 7.5 fL Normal 6.6 - 10.5 fL AO Workflow SS Platelets (Bld) [#/Vol] 299 103/mcL Normal 150 - 450 10^3/mcL AO Workflow SS Potassium [Moles/Vol] 4.2 mmol/L Normal 3.5 - 5.1 mmol/L AO ADM SS Protein [Mass/Vol] 7.2 G/dL Normal 6.4 - 8.2 G/dL AO ADM SS RBC (Bld) [#/Vol] 4.52 106/mcL Normal 4.10 - 5.3 0 10^6/mcL AO Workflow SS Sodium [Moles/Vol] 144 mmol/L Normal 136 - 145 mmol/L AO ADM SS T3 [Mass/Vol] 78 ng/dL Normal 60 - 181 ng/dL AH ADM SS TSH Qn 1.25 m[IU]/L Normal 0.36 - 3.74 mcIU/mL AO ADM SS Urea nitrogen [Mass/Vol] 22 mg/dL High 7 - 18 mg/dL AO ADM SS Urea nitrogen/Creatinine [Mass ratio] 22 ratio Normal 7 - 27 ratio AO ADM SS Uric Acid Lvl 4.0 mg/dL Normal 2.6 - 6.2 mg/dL AO ADM SS WBC (Bld) [#/Vol] 4.6 103/mcL Normal 4.5 - 10.8 10^3/mcL AO Workflow SS T3on 02-02-2025 Total T3 78 ng/dL Normal 60-181 [facility] Comment on above: Performed By: #### D TOM BURT, E2 #### [place] [address] #### [id number], 037834 #### [address] [address] TSHon 02-02-2025 TSH Qn 1.25 m[IU]/L Normal 0.36-3.74 [facility] Comment on above: Performed By: #### PRO MONSEG, E2 #### [place] [address] #### [id number], 595406 #### [address] [address] URICon 02-02-2025 Uric Acid Lvl 4.0 mg/dL Normal 2.6-6.2 [facility] Comment on above: Performed By: #### TOM SHEA, E2 #### [place] [address] #### [id number], 373790 #### [address] [address] VIDHon 02-02-2025 Vit. D 25-Hydroxy 85.2 ng/mL Normal [facility] Comment on above: Result Comment: Inte rpretive Values Based on Total 25(OH) Vitamin D: Deficient <20 ng/mL Insufficient 20 - <30 ng/mL Sufficient 30-100 ng/mL Performed By: #### TOM SHEA, E2 #### [place] [address] #### 685463, 625139 #### [address] [address] ESTRon 01-31-2025 Estrone 172 pg/mL Normal [facility] Comment on above: Result Comment: Rang e Adult (Premenopausal) 27 - 231 Menstrual Cycle (1-10 days) 19 - 149 Menstrual Cycle (11-20 days) 32 - 176 Menstrual Cycle (21-30 days) 37 - 200 Adult (Postmenopausal) 0 - 125 Performed At: [facility] [id number] Dontrell Mayberry MD Ph:[phone] Performed By: #### TOM SHEA, E2 #### [address] [address] #### 638772, 378759 #### [place] [address] [place], [place] [address] E2on 01-29-2025 Estradiol Level 68.54 pg/mL Normal [facility] Comment on above: Result Comment: Adult Female E2 Reference Ranges: Follicular phase 19.5 - 144.2 pg/mL Midcycle 63.9 - 356.7 pg/mL Luteal phase 55.8 - 214.2 pg/mL Post menopausal 0 - 33.2 pg/mL Performed By: #### D HEAS, PROG, E2 #### [place] [address] #### 015010, 134268 #### [place] [address] [place], [place] [address] LABORATORYOrdered By: SYSTEM SYSTEM on 01-29-2025 E2 [Mass/Vol] 68.54 pg/mL Invalid Interpretation Code [facility] Comment on above: Interpretive Data: Adult Female E2 Reference Ranges: Follicular phase 19.5 - 144.2 pg/mL Midcycle 63.9 - 356.7 pg/mL Luteal phase 55.8 - 214.2 pg/mL Post menopausal 0 - 33.2 pg/mL Progesterone [Mass/Vol] 23.1 ng/mL Invalid Interpretation Code [facility] Comment on above: Interpretive Data: A dult Female Progesterone Reference Ranges: Follicular phase <0.21 - 1.40 ng/mL Luteal phase 3.34 - 25.56 ng/mL Mid-Luteal phase 4.44 - 28.03 ng/mL Postmenopausal <0.21 - 0.73 ng/ml Female: First trimester 11.22 - 90.00 ng/ml Second trimester 25.55 - 89.40 ng/ml Third trimester 48.40 - 422.50 ng/ml PROGon 01-29-2025 Progesterone Level 23.1 ng/mL Normal [facility] Comment on above: Result Comment: Adul t Female Progesterone Reference Ranges: Follicular phase <0.21 - 1.40 ng/mL Luteal phase 3.34 - 25.56 ng/mL Mid-Luteal phase 4.44 - 28.03 ng/mL Postmenopausal <0.21 - 0.73 ng/ml Female: First trimester 11.22 - 90.00 ng/ml Second trimester 25.55 - 89.40 ng/ml Third trimester 48.40 - 422.50 ng/ml Performed By: #### D TOM BURT, E2 #### [facility] [address] [place] [address] #### [id number], [id number] #### [address] [address] CNOVon 01-01-2025 CNOV Office Visit (OBGYWM ) NICOLE CADENA ([id number]) 1965 F Date Time Provider Department 01/01/25 9:10 AM RAFAEL LOZANO OBGYWIván During your visit today, we recorded the following information about you: Blood pressure Weight Last Period 133/75 67.1 kg 05/17/17 Rafael Lozano MD 01/01/2025 9:57 AM Signed Childcare Worker offered: Patient accepts, visit chaperoned by Benjie Cheng Lpn. Nicole is a 59 year old who presents for an annual gynecologic exam without complaints. 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 History LMP: 05/17/2017, Postmenopausal Age at Menarche: 13 Age at First : Age at Menopause: Song And Dance Performer History Comments: Sexual Activity: Yes; Male Contraception: None PAST MEDICAL HISTORY Diagnosis Date Female infertility of unspecified origin Female infertility Hemorrhage of gastrointestinal tract, unspecified PMH - PAST MEDICAL HISTORY OF kidney stones Unspecified , without mention of complication, unspecified (HCC) PAST SURGICAL HISTORY Procedure Laterality Date COLONOSCOPY FLX DX W/COLLJ SPEC WHEN PFRMD 01/07/2012 Colonoscopy CURETTAGE IANDD THYROGLOSSAL DUCT CYST 2022 LAPAROSCOPY ENTEROLYSIS SEPARATE PROCEDURE 02/26/2015 PAST SURGICAL HISTORY OF 08/15/2004 appendectomy, laparoscopy SALPINGECTOMY left TX ECTOPIC ABDL FAMILY HISTORY Problem Relation Age of Onset Breast Cancer Mother 80 - 99 Cancer Father Thyroid Hypertension Sister Hyperlipidemia Sister Hypertension Brother Hyperlipidemia Brother SOCIAL HISTORY Social History Tobacco Use Smoking status: Never Smokeless tobacco: Never Vaping Use Vaping status: Never Used Substance Use Topics Alcohol use: No Drug use: No REVIEW OF SYSTEMS Abdomen: No abdominal pain, nausea, vomiting, diarrhea, or constipation. No bloating, early satiety, indigestion, or increased flatulence. Bladder: No dysuria, gross hematuria, urinary frequency, urinary urgency, or incontinence Breast: No breast lumps, nipple d/c, overlying skin changes, redness or skin retraction Allergies and current medication updated:Yes SENSITIVE EXAM: The sensitive examination was discussed with the Patient or Patient's Authorized Tie Tape Machine Operator. As applicable, any other physician, advance practice provider, medical student, or other health professional student that will be observing or involved in the sensitive examination for educational or training purposes was discussed with the Patient or Authorized Tie Tape Machine Operator. The Patient or Authorized Tie Tape Machine Operator has agreed to proceed with the sensitive examination. (Sensitive examination includes inspection and/or palpation of the breasts, pelvis, prostate and anorectal regions). EXAM: BP 133/75 Wt 148 lb (67.1kg) LMP 05/17/2017 GENERAL: pleasant, female in no apparent distress HEENT: Normocephalic, atraumatic, mucus membranes moist, and no lesions NECK: Supple, full range of motion, no adenopathy, and thyroid normal DERMATOLOGY: Normal, without lesions, non-icteric, and non-hirsute BREAST: soft, non-tender, symmetric, no dominant mass, normal nipple-areolar complex, no lymphadenopathy, and no nipple discharge CHEST: Normal inspiratory effort ABDOMEN: soft, non-tender, and no masses PELVIC: external genitalia normal, normal Bartholin's glands, urethra, [place]'s glands, no vulvar lesions, no cervical lesions, good vaginal support, physiologic discharge present, normal appearing perineal body and perianal region BIMANUAL: uterus normal size, shape and consistency, no adnexal masses, and non-tender RECTOVAGINAL: rectovaginal exam negative for any masses or nodularity. EXTREMITIES: normal ASSESSMENT/PLAN: 1) Health maintenance: Pap/HPV up to date. 2) Follow up one year or sooner as needed Rafael Lozano MD Allergies As of Date: 01/01/2025 Noted Allergy Reaction CODEINE 03/31/2007 5 - Intolerance 8 - GI Upset Date Reviewed: 01/01/2025 Reviewed by: Benjie Cheng LPN - Fully Assessed Reason for Visit: Well Woman [1463] Primary Visit Diagnosis:Encounter for gynecological examination (general) (routine) without abnormal findings [Z01.419] Other Visit Diagnoses:Encounter for screening mammogram for breast cancer [Z12.31] Dense breast tissue [R92.30] Order(s):[facility] SCREENING W KEI [[id number]] Order #: [id number] (more content not included)... Normal [facility] OMEGAon 07-29-2024 AA/EPA Ratio 6.0 Normal 3.7-40.7 [facility] Comment on above: Performed By: #### 8 [id number], [id number], [id number], [id number], [id number] ####[facility] [place], [place] [address]#### NEYMAR ####[place] [id number] [place] [address] Arachidonic Acid 10.6 % by wt Normal 8.6-15.6 [facility] Comment on above: Performed By: #### 8 11390, 208176, 443587, 298103, 303884 ####[address] [place], [place] [address]#### NEYMAR ####[facility] [place] [address] DHA 4.1 % by wt Normal 1.4-5.1 [facility] Comment on above: Performed By: #### 8 98213, 851357, 052950, 121261, 472634 ####[address] [place], [place] [address]#### NEYMAR ####[facility] [place] [address] DPA 1.5 % by wt Normal 0.8-1.8 [facility] Comment on above: Performed By: #### 8 04931, 823908, 434784, 514807, 154430 ####[address] [place] [place] [address]#### NEYMAR ####[facility] [place] [address] EPA 1.8 % by wt Normal 0.2-2.3 [facility] Comment on above: Performed By: #### 8 24838, 229723, 558907, 237902, 747633 ####[address] [place] [place] [address]#### NEYMAR ####[place] [address] Linoleic Acid 26.1 % by wt Normal 18.6-29.5 [facility] Comment on above: Result Comment: This test is performed by a Liquid Chromatography-Tandem Mass Spectrometry (LC/MS/MS) method. This test was developed and its performance characteristics determined by the [facility] It has not been cleared or approved by the U.S. FDA. The [facility] is regulated under Clinical Laboratory Improvement Amendments (CLIA) as qualified to perform high-complexity testing. This test is used for clinical purposes. It should not be regarded as investigational or for research. Performed At: [facility] [address] [place] [id number] Zita Cook MD Ph:[phone] Performed By: #### 8 03637, 102524, 763309, 219575, 476955 ####[address] [place] [place] [address]#### NEYMAR ####[place] [address] Lincoln-3 total 7.3 % by wt Normal [facility] Comment on above: Performed By: #### 8 34777, 437915, 160511, 114637, 156446 ####[address] [place], [place] [address]#### NEYMAR ####[place] [address] [place] [address] Lincoln-6 total 39.2 % by wt Normal [facility] Comment on above: Result Comment: Jazlyn neches [facility] measures a number of omega- 6 fatty acids with AA and LA being the two most abundant forms reported. Performed By: #### 8 52461, 077504, 208096, 846638, 282884 ####[facility] [place] [address]#### NEYMAR ####[place] [address] Lincoln-6/Lincoln-3 5.4 Normal 3.7-14.4 [facility] Comment on above: Performed By: #### 8 20986, 344100, 668051, 389268, 156964 ####Mone [address] [place] [address]#### NEYMAR ####[place] [address] OmegaCheck 7.3 % by wt Normal >5.4 [facility] Comment on above: Result Comment: Rela tive Risk: LOW Increasing blood levels of long-chain n-3 fatty acids are associated with a lower risk of sudden cardiac (1). Based on the top (75th percentile) and bottom (25th percentile) quartiles of the [facility] reference population, the following risk categories were established for OmegaCheck: A cut-off of >=5.5% by wt defines a population at low relative risk, 3.8-5.4% by wt defines a population at moderate relative risk, and <=3.7% by wt defines a population at high relative risk of sudden cardiac . The totality of the scientific evidence demonstrates that when consumption of fish oils is limited to 3 g/day or less of EPA and DHA, there is no significant risk for increased bleeding time beyond the normal range. A daily dosage of 1 gram of EPA and DHA lowers the circulating triglycerides by about 7-10% within 2 to 3 weeks. (Reference: 1-Christiano et al. [facility]. 2002; 346: 0821-2210). Performed By: #### 8 30097, 990937, 925813, 625909, 781930 ####[place] [address] [place] [address]#### NEYMAR ####[address] LCon 07-18-2024 LC Order Number [id number] Normal [facility] Comment on above: Performed By: #### PRO MONSEG, E2 #### [place] [address] #### 125850, 716823 #### [address] [address] Test Name Oxidized Low-density Normal [facility] Comment on above: Performed By: #### PRO MONSEG, E2 #### [place] [address] #### 857253, 885076 #### [place] 795577 [facility] LCon 07-17-2024 [facility] Test Result COMMENT Normal [facility] Comment on above: Result Comment: Test Ordered: [id number] Oxidized LDL Oxidized LDL 61 ng/mL Reference Range: 10-170 Performed At: [facility] [address] [place], [place] [id number] Unique Lindquist PhD Ph:[phone] Performed At: [facility] [address] [id number] Dontrell Mayberry MD Ph:[phone] Performed By: #### PRO MONSEG, E2 #### [place] [address] #### 196767, 781300 #### [address] [address] APOBon 07-16-2024 Apolipoprotein B [Mass/Vol] 80 mg/dL Normal <90 [facility] Comment on above: Result Comment: Cyndi rable < 90 Borderline High 90 - 99 High 100 - 130 Very High >130 ASCVD RISK THERAPEUTIC TARGET CATEGORY APO B (mg/dL) Very High Risk <80 (if extreme risk <70) High Risk <90 Moderate Risk <90 Performed At: [address] [id number] Dontrell Mayberry MD Ph:[phone] Performed By: #### 8 78733, 383756, 791694, 294415, 779622 ####Mone [address] [place] [address]#### NEYMAR ####[place] [address] GDII4pj 07-16-2024 Lp-PLA2 Act 100 nmol/min/mL Normal 0-224 [facility] Comment on above: Result Comment: Redu rafat Risk <225 Increased Risk >224 Performed At: [address] [id number] Dontrell Mayberry MD Ph:[phone] Performed By: #### 8 49895, 724038, 920882, 292199, 137341 ####Mone [address] [place] [address]#### NEYMAR ####[place] [address] TMAOon 07-15-2024 TMAO (Trimethylamine N-oxide) <3.3 Normal <6.2 [facility] Comment on above: Result Comment: This test was developed and its performance characteristics determined by [facility]. It has not been cleared or approved by the Food and Drug Administration. TMAO Medical Decision Limits Low <6.2 Moderate 6.2 - 9.9 High >9.9 Performed At: [address] [place] [address] [id number] Dontrell Mayberry MD Ph:[phone] Performed By: #### 8 47136, 102920, 761935, 192372, 995207 #### [address] [address] #### NEYMAR #### [place] [id number] LIPOAon 07-14-2024 Lipoprotein a [Moles/Vol] 20.2 nmol/L Normal <75.0 [facility] Comment on above: Result Comment: Note : Values greater than or equal to 75.0 nmol/L may indicate an independent risk factor for CHD, but must be evaluated with caution when applied to non- populations due to the influence of genetic factors on Lp(a) across ethnicities. Performed At: [facility] [id number] Unique Lindquist PhD Ph:[phone] Performed By: #### 8 01114, 435930, 092042, 807978, 803110 #### [place] [address] #### NEYMAR #### [place] [address] CORTon 07-13-2024 Cortisol Level 15.6 mcg/dL Normal [facility] Comment on above: Result Comment: Neymar isol AM Reference Range 6.5-26.0 mcg/dL Cortisol PM Reference Range 3.5-15.0 mcg/dL Performed By: #### 8 65098, 756696, 399843, 436510, 973050 #### [place] [address] #### NEYMAR #### [place] [address] LABORATORYOrdered By: SYSTEM SYSTEM on 07-13-2024 Cortisol [Mass/Vol] 15.6 ug/dL Invalid Interpretation Code ADM SS Comment on above: Interpretive Data: C ortisol AM Reference Range 6.5-26.0 mcg/dL Cortisol PM Reference Range 3.5-15.0 mcg/dL Comprehensive Metabolic Prof ilon 06-07-2024 Albumin [Mass/Vol] 3.4 g/dL Normal 3.2-5.0 [facility] Comment on above: Performed By: #### L 500.4050, L500.4100 #### [facility] [address] [place], [address] Albumin/Globulin [Mass ratio] 0.9 {ratio} Normal 0.9-2.4 [facility] Comment on above: Performed By: #### L 500.4050, L500.4100 #### [facility] [address] [place], [address] ALK P 48 U/L Normal 45-117 [facility] Comment on above: Performed By: #### L 500.4050, L500.4100 #### [facility] [address] [place], [address] ALT [Catalytic activity/Vol] 24 U/L Normal 13-56 [facility] Comment on above: Performed By: #### L 500.4050, L500.4100 #### [facility] [address] [place], [address] AST [Catalytic activity/Vol] 24 U/L Normal 15-37 [facility] Comment on above: Performed By: #### L 500.4050, L500.4100 #### [facility] [address] [place], [address] Bilirubin [Mass/Vol] 0.40 mg/dL Normal 0.20-1.00 [facility] Comment on above: Result Comment: For patients on eltrombopag therapy, use of Dimension Coalgood TBIL is not recommended. Performed By: #### L 500.4050, L500.4100 #### [facility] [address] [place], [address] BUN/CRE 23.3 RATIO High 10-20 [facility] Comment on above: Performed By: #### L 500.4050, L500.4100 #### [facility] [address] [place], [address] CA,Total 8.6 mg/dL Normal 8.5-10.1 [facility] Comment on above: Performed By: #### L 500.4050, L500.4100 #### [facility] [address] [place], [address] Chloride [Moles/Vol] 106 mmol/L Normal 98-107 [facility] Comment on above: Performed By: #### L 500.4050, L500.4100 #### [facility] [address] [place], [address] CO2 [Moles/Vol] 24.0 mmol/L Normal 21.0-32.0 [facility] Comment on above: Performed By: #### L 500.4050, L500.4100 #### [facility] [address] [place], [address] Creatinine [Mass/Vol] 0.99 mg/dL Normal 0.55-1.02 [facility] Comment on above: Result Comment: The validity of the calculated GFR GFRAA in patients over 70 years has not been determined. Clinical correlation is essential. Performed By: #### L 500.4050, L500.4100 #### [facility] [address] [place], [address] EST GFR - AA 74 mL/min Normal >60 [facility] Comment on above: Result Comment: Afri can Vietnamese GFR Calc Performed By: #### L 500.4050, L500.4100 #### [facility] [address] [place], [address] GAP 9 Normal 5-15 [facility] Comment on above: Performed By: #### L 500.4050, L500.4100 #### [facility] [address] [place], [address] GFR/1.73 sq M.predicted among non-blacks MDRD (S/P/Bld) [Vol rate/Area] 61 mL/min/{1.73_m2} Normal >60 [facility] Comment on above: Result Comment: Non- GFR Calc Performed By: #### L 500.4050, L500.4100 #### [facility] [address] [place], [address] Globulin (S) [Mass/Vol] 3.9 g/dL Normal 2.2-4.2 [facility] Comment on above: Performed By: #### L 500.4050, L500.4100 #### [facility] [address] [place], [address] Glucose [Mass/Vol] 97 mg/dL Normal 74-106 [facility] Comment on above: Performed By: #### L 500.4050, L500.4100 #### [facility] [address] [place], [address] Potassium [Moles/Vol] 4.0 mmol/L Normal 3.5-5.1 [facility] Comment on above: Performed By: #### L 500.4050, L500.4100 #### [facility] [address] [place], [address] Sodium [Moles/Vol] 138 mmol/L Normal 136-145 [facility] Comment on above: Performed By: #### L 500.4050, L500.4100 #### [facility] [address] [place], [address] T PROT 7.3 g/dL Normal 6.4-8.2 [facility] Comment on above: Performed By: #### L 500.4050, L500.4100 #### [facility] [address] [place], [address] Urea nitrogen [Mass/Vol] 23 mg/dL High 7-18 [facility] Comment on above: Performed By: #### L 500.4050, L500.4100 #### [facility] [address] [place], [address] Lipid Profileon 06-07-2024 Cholesterol [Mass/Vol] 185 mg/dL Normal 200 [facility] Comment on above: Result Comment: <200 mg/dL Desirable 200-240 mg/dL Borderline >240 mg/dL High Risk Performed By: #### L 500.4050, L500.4100 #### [facility] [address] [place], [address] Cholesterol in HDL [Mass/Vol] 79 mg/dL Normal [facility] Comment on above: Result Comment: The drugs N-Acetylcysteine and Metamizole may falsely depress this assay. Reference Range HDL <40 mg/dL Low HDL Cholesterol HDL >or= 60 mg/dL High HDL Cholesterol Performed By: #### L 500.4050, L500.4100 #### [facility] [address] [place], [address] Cholesterol in LDL [Mass/Vol] 93 mg/dL Normal 0-130 [facility] Comment on above: Performed By: #### L 500.4050, L500.4100 #### [facility] [address] [place], [address] Cholesterol in VLDL [Mass/Vol] 13 mg/dL Normal 5-40 [facility] Comment on above: Performed By: #### L 500.4050, L500.4100 #### [facility] [address] [place], [address] Triglyceride [Mass/Vol] 63 mg/dL Normal [facility] Comment on above: Result Comment: The drugs N-Acetylcysteine and Metamizole may falsely depress this assay. Serum Triglycerides Reference Interval Normal <150 mg/dL Borderline high 150 - 199 mg/dL High 200 - 499 mg/dL Very High > or = 500 mg/dL Performed By: #### L 500.4050, L500.4100 #### [facility] [address] [place], [address] No Panel Informationon 05-16 Culture Throat Normal throat michael present Sensitivity Testing: Not Indicated [facility] ESTRon 05-02-2024 Estrone 177 pg/mL Normal [facility] Comment on above: Result Comment: Rang e Adult (Premenopausal) 27 - 231 Menstrual Cycle (1-10 days) 19 - 149 Menstrual Cycle (11-20 days) 32 - 176 Menstrual Cycle (21-30 days) 37 - 200 Adult (Postmenopausal) 0 - 125 Performed At: [facility] [id number] Dontrell Mayberry MD Ph:[phone] Performed By: #### PRO MONSEG, E2 #### [place] [address] #### 595792, 792705 #### [address] [address] TFTESTon 05-02-2024 Free Testost Direct 0.8 pg/mL Normal 0.0-4.2 [facility] Comment on above: Result Comment: Perf ormed At: [address] [place] [address] [id number] Dontrell Mayberry MD Ph:[phone] Performed At: [address] [id number] Unique Lindquist PhD Ph:[phone] Performed By: #### PRO MONSEG, E2 #### [place] [address] #### 557267, 432344 #### [address] [address] Testosterone Lvl 25 ng/dL Normal 4-50 [facility] Comment on above: Performed By: #### PRO MONSEG, E2 #### [place] [address] #### 446157, 494093 #### [address] [address] DHEASon 04-28-2024 DHEA-SO4 106.36 mcg/dL Normal 25.90-460.20 [facility] Comment on above: Result Comment: No te - New Reference Range in effect 19 Performed By: #### PRO MONSEG, E2 #### [address] [address] #### 569202, 097051 #### [place] [address]642 [place], [place] [address] E2on 04-28-2024 Estradiol Level 76.47 pg/mL Normal [facility] Comment on above: Result Comment: No te - New Reference Range in effect 19 Adult Female E2 Reference Ranges: Follicular phase 19.5 - 144.2 pg/mL Midcycle 63.9 - 356.7 pg/mL Luteal phase 55.8 - 214.2 pg/mL Post menopausal 0 - 33.2 pg/mL Performed By: #### Naty BURT, G, E2 #### [place] [address] #### 538556, 719573 #### [address] [address] LABORATORYOrdered By: SYSTEM SYSTEM on 04-28-2024 DHEA-S [Mass/Vol] 106.36 ug/dL Normal 25.90 - 460.20 mcg/dL [facility] Comment on above: Interpretive Data: * *Note - New Reference Range in effect 19 E2 [Mass/Vol] 76.47 pg/mL Invalid Interpretation Code [facility] Comment on above: Interpretive Data: * *Note - New Reference Range in effect 19 Adult Female E2 Reference Ranges: Follicular phase 19.5 - 144.2 pg/mL Midcycle 63.9 - 356.7 pg/mL Luteal phase 55.8 - 214.2 pg/mL Post menopausal 0 - 33.2 pg/mL Progesterone [Mass/Vol] 18.7 ng/mL Invalid Interpretation Code [facility] Comment on above: Interpretive Data: A dult Female Progesterone Reference Ranges: Follicular phase <0.21 - 1.40 ng/mL Luteal phase 3.34 - 25.56 ng/mL Mid-Luteal phase 4.44 - 28.03 ng/mL Postmenopausal <0.21 - 0.73 ng/ml Female: First trimester 11.22 - 90.00 ng/ml Second trimester 25.55 - 89.40 ng/ml Third trimester 48.40 - 422.50 ng/ml PROGon 04-28-2024 Progesterone Level 18.7 ng/mL Normal [facility] Comment on above: Result Comment: Adul t Female Progesterone Reference Ranges: Follicular phase <0.21 - 1.40 ng/mL Luteal phase 3.34 - 25.56 ng/mL Mid-Luteal phase 4.44 - 28.03 ng/mL Postmenopausal <0.21 - 0.73 ng/ml Female: First trimester 11.22 - 90.00 ng/ml Second trimester 25.55 - 89.40 ng/ml Third trimester 48.40 - 422.50 ng/ml Performed By: #### D TOM BURT, E2 #### [address] [address] #### [id number], 093330 #### [address] [address] [address] CARDIAC SCORING WO IV CON TRASTon 04-01-2024 CT CARDIAC SCORING WO IV CONTRAST Interpreted By: Saleem Kovacs, STUDY: CT CARDIAC SCORING WO IV CONTRAST; 04/01/2024 9:55 am INDICATION: Signs/Symptoms:Screenin g. ,E78.5 Hyperlipidemia, unspecified COMPARISON: None. ACCESSION NUMBER(S): [id number] ORDERING CLINICIAN: INTERFACE UNSPECIFIELDPROVIDER TECHNIQUE: Using prospective ECG gating, CT scan of the coronary arteries was performed without intravenous contrast. Coronary calcium scoring was performed according to the method of Agatston. FINDINGS: The score and distribution of calcium in the coronary arteries is as follows: LM 0 LAD 0 LCx 0 RCA 0 Total 0 The visualized mid/lower ascending thoracic aorta measures 3.1 cm in diameter. The heart is normal in size. No pericardial effusion is present. No gross evidence of mediastinal or hilar lymphadenopathy or masses is identified. The visualized segments of the lungs are normally expanded. The visualized subdiaphragmatic structures appear intact. IMPRESSION: 1. Coronary artery calcium score of 0*. *Coronary artery calcium scoring may be helpful in predicting the risk for future coronary heart disease events. According to the [employer] Clinical Expert Consensus Task Force, such testing provides important prognostic information in patients with more than one coronary heart disease risk factor. The coronary artery calcium score correlates with the annual risk of a non-fatal myocardial infarction or coronary heart disease . Coronary artery score Annual Risk 0-99 0.4% 100-399 1.3% >400 2.4% These three breakpoints correspond to lower, intermediate and high risk states for future coronary events. Such information should be used, along with appropriate clinical judgment, to make decisions regarding the intensity of risk factor management strategies to treat blood lipids and to modify other non-lipid coronary risk factors. Reference: Izzy P et al. Circulation. 2007; 115:402-426 MACRO: None Signed by: Saleem Kovacs 04/03/2024 1:03 PM Dictation workstation: [id number] [facility] BD BONE DENSITY DEXA AXIAL S Jon 03-23-2024 BD BONE DENSITY DEXA AXIAL SKELETON ORIGINAL EXAMINATION: BONE [id number]/6/2024 3:25 pm TECHNIQUE: Dual energy bone densitometry lumbar spine and left hip. COMPARISON: 10/07/2018 HISTORY: ORDERING SYSTEM PROVIDED HISTORY: SCREENING Osteoporosis screening FINDINGS: T Score Left Femoral Neck: -0.9 Left Femoral Neck: 0.750 (g/cm2) T Score Left Hip: -0.2 Left Hip: 0.915 (g/cm2) T Score Lumbar Spine: -1.0 Lumbar Spine: 0.941 (g/cmd2) BMD Change from previous Hip: -0.5% BMD Change from previous Lumbar Spine:-4.7%, significant FRAX score: Not calculated. The BHOF f/k/a NOF recommends that FDA-approved medical therapies be considered in post-menopausal women and men age >/= 50 years with a: * Hip or vertebral fracture, or * T-score of /= 20% for major osteoporotic fractures or * >/= 3% for hip fractures All treatment decisions require clinical judgement and consideration of individual patient factors, including patient preferences, comorbidities, previous drug use, risk factors not captured in the FRAX registered model (e.g., frailty, falls, vitamin D deficiency, increased bone turnover, interval significant decline in bone density) and possible under- or over-estimation of fracture risk by FRAX. IMPRESSION: Normal bone mineral density. Interpreted by: Rolando Tesfaye MD Preliminary Report By: Rolando Tesfaye MD Electronically signed By Rolando Tesfaye MD Dictated Date: 03/23/2024 9:33:58 AM Prelim Date: 03/23/2024 9:35:18 AM Sign Date: 03/23/2024 9:35:18 AM Ordering Provider: MATEO Hutchins [facility] TFTESTon 02-28-2024 Free Testost Direct 0.5 pg/mL Normal 0.0-4.2 [facility] Comment on above: Result Comment: Perf ormed At: [facility] [address] [id number] Dontrell Mayberry MD Ph:[phone] Performed At: [facility] [address] [id number] Unique Lindquist PhD Ph:[phone] Performed By: #### TOM SHEA, E2 #### [place] [address] #### 354671, 870698 #### [address] [address] Testosterone Lvl 7 ng/dL Normal 4-50 [facility] Comment on above: Performed By: #### TOM SHEA, E2 #### [place] [address] #### 079719, 953097 #### [address] [address] .Auto Diffon 02-23-2024 Basophil, Absolute 0.0 10 3/mcL Normal 0.0-0.2 [facility] Comment on above: Performed By: #### TOM SHEA, E2 #### [place] [address] #### [id number], 944889 #### [address] [address] Basophils/100 WBC (Bld) 0.5 % Normal 0.0-2.5 [facility] Comment on above: Performed By: #### D HEAS, PROG, E2 #### [place] [address] #### 757607, 097477 #### [address] [address] Eosinophil, Absolute 0.1 10 3/mcL Normal 0.0-0.7 [facility] Comment on above: Performed By: #### Naty BURT PROG, E2 #### [place] [address] #### 076833, 590852 #### [address] [address] Eosinophils/100 WBC (Bld) 3.1 % Normal 0.0-7.0 [facility] Comment on above: Performed By: #### Naty BURT PROG, E2 #### [place] [address] #### 947653, 492083 #### [address] [address] Lymphocyte, Absolute 2.0 10 3/mcL Normal 0.9-4.3 [facility] Comment on above: Performed By: #### Naty BURT PROG, E2 #### [place] [address] #### 113061, 468231 #### [address] [address] Lymphocytes/100 WBC (Bld) 52.8 % High 20.0-40.0 [facility] Comment on above: Performed By: #### Naty BURT PROG, E2 #### [place] [address] #### 009770, 163554 #### [address] [address] Monocyte, Absolute 0.2 10 3/mcL Normal 0.1-1.4 [facility] Comment on above: Performed By: #### Naty BURT PROG, E2 #### [place] [address] #### [id number], 103368 #### [address] [address] Monocytes/100 WBC (Bld) 6.6 % Normal 2.0-13.0 [facility] Comment on above: Performed By: #### PRO MONSEG, E2 #### [address] [address] #### 949202, 888693 #### [address] [address] Neutrophils/100 WBC (Bld) 37.0 % Low 50.0-75.0 [facility] Comment on above: Performed By: #### TOM SHEA, E2 #### [place] [address] #### 637187, 462143 #### [address] [address] .NEUABSon 02-23-2024 Neutrophil, Absolute 1.4 10 3/mcL Low 2.3-8.1 [facility] Comment on above: Performed By: #### PRO MONSEG, E2 #### [place] [address] #### 111804, 565454 #### [address] [address] A1Con 02-23-2024 Glucose [Mass/Vol] 111 mg/dL Normal [facility] Comment on above: Result Comment: Shabana mated Average Glucose calculated by equation ((28.7xA1C)-46.7) Estimated average glucose (eAG) is a calculated value from Hemoglobin A1C and is business services sales representative of the average blood glucose level in the last 2-3 month period. Normal range: less than 114 mg/dL Performed By: #### A JOLEEN, FERR, CBC, VIDH, TSH, ADIFF, IBC, A1C, FE ####[address] [address]#### CRPHS, HOMO, INSLN, FOL, B12, NEYMAR ####[address] [address] HbA1c (Bld) [Mass fraction] 5.5 % Normal 4.3-6.4 [facility] Comment on above: Performed By: #### A JOLEEN, FERR, CBC, VIDH, TSH, ADIFF, IBC, A1C, FE ####[place] [address]#### CRPHS, HOMO, INSLN, FOL, B12, NEYMAR ####[place] [address] B12on 02-23-2024 Vitamin B12 Lvl >2000 High 211-911 [facility] Comment on above: Performed By: #### PRO MONSEG, E2 #### [place] [address] #### [id number], [id number] #### [place] [address] CBCon 02-23-2024 Erythrocyte distribution width (RBC) [Ratio] 13.5 % Normal 11.5-15.5 [facility] Comment on above: Performed By: #### Naty BURT PROG, E2 #### [place] [address] #### [id number], [id number] #### [place] [id number] Hematocrit (Bld) [Volume fraction] 41.6 % Normal 34.0-46.0 [facility] Comment on above: Performed By: #### Naty BURT PROG, E2 #### [place] [address] #### [id number], [id number] #### [place] [address] Hgb 14.1 G/dL Normal 12.0-16.0 [facility] Comment on above: Performed By: #### Naty BURT PROG, E2 #### [place] [address] #### [id number], 123404 #### [place] [id number] MCH (RBC) [Entitic mass] 31.2 pg Normal 27.0-33.0 [facility] Comment on above: Performed By: #### TOM SHEA, E2 #### [place] [address] #### [id number], [id number] #### [address] [address] MCHC 33.8 G/dL Normal 32.0-36.0 [facility] Comment on above: Performed By: #### TOM SHEA, E2 #### [place] [address] #### [id number], [id number] #### [address] [address] MCV (RBC) [Entitic vol] 92.3 fL Normal 80.0-99.0 [facility] Comment on above: Performed By: #### TOM SHEA, E2 #### [place] [address] #### [id number], 278650 #### [address] [address] Platelet 279 10 3/mcL Normal 150-450 [facility] Comment on above: Performed By: #### TOM SHEA, E2 #### [place] [address] #### [id number], 924666 #### [address] [address] Platelet mean volume (Bld) [Entitic vol] 7.7 fL Normal 6.6-10.5 [facility] Comment on above: Performed By: #### TOM SHEA, E2 #### [place] [address] #### [id number], 806347 #### [address] [address] RBC 4.51 10 6/mcL Normal 4.10-5.30 [facility] Comment on above: Performed By: #### TOM SHEA, E2 #### [address] [address] #### [id number], 774308 #### [address] [address] WBC 3.7 10 3/mcL Low 4.5-10.8 [facility] Comment on above: Performed By: #### TOM SHEA, E2 #### [place] [address] #### [id number], [id number] #### [address] [address] CORTon 02-23-2024 Cortisol Level 31.0 mcg/dL Normal [facility] Comment on above: Result Comment: Neymar isol AM Reference Range 6.5-26.0 mcg/dL Cortisol PM Reference Range 3.5-15.0 mcg/dL Performed By: #### TOM SHEA, E2 #### [place] [address] #### [id number], [id number] #### [address] [address] CRPHSon 02-23-2024 CRP, High Sensitive 1.81 mg/L Normal 0.20-3.00 [facility] Comment on above: Result Comment: Rela tive Risk Category and Average hs-CRP Level: Higher Risk: > 5.0 mg/L Guidelines support that hs-CRP can be used as an independent predictor of increased coronary risk; however, hs-CRP results should only be interpreted in conjunction with other cardiac risk factors in establishing overall cardiac risk for a given patient. Performed By: #### TOM SHEA, E2 #### [place] [address] #### [id number], [id number] #### [address] [address] DHEASon 02-23-2024 DHEA-SO4 88.79 mcg/dL Normal 25.90-460.20 [facility] Comment on above: Result Comment: No te - New Reference Range in effect 20 Performed By: #### Naty BURT, PROG, E2 #### [place] [address] #### [id number], [id number] #### [place] [address] E2on 02-23-2024 Estradiol Level 22.77 pg/mL Normal [facility] Comment on above: Result Comment: No te - New Reference Range in effect 19 Adult Female E2 Reference Ranges: Follicular phase 19.5 - 144.2 pg/mL Midcycle 63.9 - 356.7 pg/mL Luteal phase 55.8 - 214.2 pg/mL Post menopausal 0 - 33.2 pg/mL Performed By: #### Naty BURT PROG, E2 #### [place] [address] #### [id number], 283651 #### [place] [address] FEon 02-23-2024 Iron [Mass/Vol] 100 ug/dL Normal 50-170 [facility] Comment on above: Performed By: #### A JOLEEN, FERR, CBC, VIDH, TSH, ADIFF, IBC, A1C, FE ####[place] [address]#### CRPHS, HOMO, INSLN, FOL, B12, NEYMAR ####[place] [address] Jere 02-23-2024 Ferritin [Mass/Vol] 60.0 ng/mL Normal 8.0-252.0 [facility] Comment on above: Performed By: #### A JOLEEN, FERR, CBC, VIDH, TSH, ADIFF, IBC, A1C, FE ####[place] [address]#### CRPHS, HOMO, INSLN, FOL, B12, NEYMAR ####[place] [address] FOLon 02-23-2024 Folate 27.95 ng/mL High 5.38-24.00 [facility] Comment on above: Performed By: #### Naty HEÓSCAR, PROG, E2 #### [place] [address] #### [id number], 577239 #### [address] [address] HOMOon 02-23-2024 Homocysteine 8.0 umol/l Normal 3.7-13.9 [facility] Comment on above: Result Comment: No te - New Reference Range in effect 19 Performed By: #### Naty HEÓSCAR, PROG, E2 #### [place] [address] #### [id number], [id number] #### [place] [id number] IBCon 02-23-2024 TIBC 278 mcg/dL Normal 250-450 [facility] Comment on above: Performed By: #### A JOLEEN, FERR, CBC, VIDH, TSH, ADIFF, IBC, A1C, FE ####[place] [address]#### CRPHS, HOMO, INSLN, FOL, B12, NEYMAR ####[place] [address] INSLNon 02-23-2024 Insulin 6.77 munit/L Normal 2.60-37.60 [facility] Comment on above: Performed By: #### Naty BURT, PROG, E2 #### [place] [address] #### [id number], [id number] #### [address] [address] LABORATORYOrdered By: SYSTEM SYSTEM on 02-23-2024 DHEA-S [Mass/Vol] 88.79 ug/dL Normal 25.90 - 460.20 mcg/dL [facility] Comment on above: Interpretive Data: * *Note - New Reference Range in effect 19 E2 [Mass/Vol] 22.77 pg/mL Invalid Interpretation Code ADM SS Comment on above: Interpretive Data: * *Note - New Reference Range in effect 19 Adult Female E2 Reference Ranges: Follicular phase 19.5 - 144.2 pg/mL Midcycle 63.9 - 356.7 pg/mL Luteal phase 55.8 - 214.2 pg/mL Post menopausal 0 - 33.2 pg/mL Progesterone [Mass/Vol] 4.9 ng/mL Invalid Interpretation Code [facility] Comment on above: Interpretive Data: A dult Female Progesterone Reference Ranges: Follicular phase <0.21 - 1.40 ng/mL Luteal phase 3.34 - 25.56 ng/mL Mid-Luteal phase 4.44 - 28.03 ng/mL Postmenopausal <0.21 - 0.73 ng/ml Female: First trimester 11.22 - 90.00 ng/ml Second trimester 25.55 - 89.40 ng/ml Third trimester 48.40 - 422.50 ng/ml 25-hydroxyvitamin D3 [Mass/Vol] 82.3 ng/mL Invalid Interpretation Code [facility] Comment on above: Interpretive Data: I nterpretive Values Based on Total 25(OH) Vitamin D: Deficient <20 ng/mL Insufficient 20 - <30 ng/mL Sufficient 30-100 ng/mL Basophils (Bld) [#/Vol] 0.0 103/mcL Normal 0.0 - 0.2 10^3/mcL AO Workflow SS Basophils/100 WBC (Bld) 0.5 % Normal 0.0 - 2.5 % AO Workflow SS Cobalamin (Vitamin B12) [Mass/Vol] pg/mL High 211 - 911 pg/mL [facility] Cortisol [Mass/Vol] 31.0 ug/dL Invalid Interpretation Code [facility] Comment on above: Interpretive Data: C ortisol AM Reference Range 6.5-26.0 mcg/dL Cortisol PM Reference Range 3.5-15.0 mcg/dL CRP High sensitivity method [Mass/Vol] 1.81 mg/L Normal 0.20 - 3.00 mg/L [facility] Comment on above: Interpretive Data: R elative Risk Category and Average hs-CRP Level: Higher Risk: > 5.0 mg/L Guidelines support that hs-CRP can be used as an independent predictor of increased coronary risk; however, hs-CRP results should only be interpreted in conjunction with other cardiac risk factors in establishing overall cardiac risk for a given patient. Eosinophil, Absolute 0.1 103/mcL Normal 0.0 - 0 .7 10^3/mcL AO Workflow SS Eosinophils/100 WBC (Bld) 3.1 % Normal 0.0 - 7.0 % AO Workflow SS Erythrocyte distribution width (RBC) [Ratio] 13.5 % Normal 11.5 - 15.5 % AO Workflow SS Ferritin [Mass/Vol] 60.0 ng/mL Normal 8.0 - 25 2.0 ng/mL AO ADM SS Folate [Mass/Vol] 27.95 ng/mL High 5.38 - 24. 00 ng/mL ADM SS Glucose [Mass/Vol] 111 mg/dL Invalid Interpretation Code AO Chemistry S Comment on above: Interpretive Data: E stimated average glucose (eAG) is a calculated value from Hemoglobin A1C and is business services sales representative of the average blood glucose level in the last 2-3 month period. Normal range: less than 114 mg/dL HbA1c (Bld) [Mass fraction] 5.5 % Normal 4.3 - 6.4 % AO ADM SS Hematocrit (Bld) [Volume fraction] 41.6 % Normal 34.0 - 46.0 % AO Workflow SS Hemoglobin (Bld) [Mass/Vol] 14.1 G/dL Normal 12.0 - 16.0 G/dL AO Workflow SS Homocysteine [Moles/Vol] 8.0 umol/L Normal 3.7 - 13.9 umol/L ADM SS Comment on above: Interpretive Data: * *Note - New Reference Range in effect 19 Insulin Qn 6.77 munit/L Normal 2.60 - 37.60 mU/L ADM SS Iron [Mass/Vol] 100 ug/dL Normal 50 - 170 mcg/dL AO ADM SS Iron binding capacity [Mass/Vol] 278 mcg/dL Normal 250 - 450 mcg/dL AO ADM SS Lymphocytes (Bld) [#/Vol] 2.0 103/mcL Normal 0.9 - 4.3 10^3/mcL AO Workflow SS Lymphocytes/100 WBC (Bld) 52.8 % High 20.0 - 40.0 % AO Workflow SS MCH (RBC) [Entitic mass] 31.2 pg Normal 27.0 - 33.0 pg AO Workflow SS MCHC 33.8 G/dL Normal 32.0 - 36.0 G/dL AO Workflow SS MCV (RBC) [Entitic vol] 92.3 fL Normal 80.0 - 99.0 fL AO Workflow SS Monocytes (Bld) [#/Vol] 0.2 103/mcL Normal 0.1 - 1.4 10^3/mcL AO Workflow SS Monocytes/100 WBC (Bld) 6.6 % Normal 2.0 - 13.0 % AO Workflow SS Neutrophils (Bld) [#/Vol] 1.4 103/mcL Low 2.3 - 8.1 10^3/mcL AO Workflow SS Neutrophils/100 WBC (Bld) 37.0 % Low 50.0 - 75.0 % AO Workflow SS Platelet mean volume (Bld) [Entitic vol] 7.7 fL Normal 6.6 - 10.5 fL AO Workflow SS Platelets (Bld) [#/Vol] 279 103/mcL Normal 150 - 450 10^3/mcL AO Workflow SS RBC (Bld) [#/Vol] 4.51 106/mcL Normal 4.10 - 5.3 0 10^6/mcL AO Workflow SS TSH Qn 1.77 m[IU]/L Normal 0.36 - 3.74 mcIU/mL AO ADM SS WBC (Bld) [#/Vol] 3.7 103/mcL Low 4.5 - 10.8 10^3/mcL AO Workflow SS PROGon 02-23-2024 Progesterone Level 4.9 ng/mL Normal [facility] Comment on above: Result Comment: Adul t Female Progesterone Reference Ranges: Follicular phase <0.21 - 1.40 ng/mL Luteal phase 3.34 - 25.56 ng/mL Mid-Luteal phase 4.44 - 28.03 ng/mL Postmenopausal <0.21 - 0.73 ng/ml Female: First trimester 11.22 - 90.00 ng/ml Second trimester 25.55 - 89.40 ng/ml Third trimester 48.40 - 422.50 ng/ml Performed By: #### D TOM BURT, E2 #### [address] [address] #### [id number], [id number] #### [address] [address] TSHon 02-23-2024 TSH Qn 1.77 m[IU]/L Normal 0.36-3.74 [facility] Comment on above: Performed By: #### A JOLEEN, FERR, CBC, VIDH, TSH, ADIFF, IBC, A1C, FE ####[place] [address] [place], [place] [address]#### CRPHS, HOMO, INSLN, FOL, B12, NEYMAR ####[address] [address] VIDHon 02-23-2024 Vit. D 25-Hydroxy 82.3 ng/mL Normal [facility] Comment on above: Result Comment: Inte rpretive Values Based on Total 25(OH) Vitamin D: Deficient <20 ng/mL Insufficient 20 - <30 ng/mL Sufficient 30-100 ng/mL Performed By: #### A JOLEEN, FERR, CBC, VIDH, TSH, ADIFF, IBC, A1C, FE ####[place] [address] [place], [place] [address]#### CRPHS, HOMO, INSLN, FOL, B12, NEYMAR ####[address] [address] [id number] 01-11-2024 [id number] HNO ID: [id number] Author: MICHELLE DEE RN Service: ? Author Type: Registered Nurse Type: [id number] Filed: 01/11/2024 09:57 Note Text: The patient received a copy of Colonoscopy discharge instructions that contain information for how to contact the physician who performed the procedure and when to seek medical care. Normal [facility] Colonoscopyon 01-11-2024 Colonoscopy [facility] Gastrointestinal Endoscopy Patient Name: Nicole Cadena Procedure Date: 01/11/2024 7:42 AM Date of : 1965 Admit Type: Outpatient Age: 58 Gender: Female Note Status: Finalized Procedure: Colonoscopy Indications: Screening for colorectal malignant neoplasm Providers: Gera Francois Patient Profile: This is a 58 year old female. Refer to note in patient chart for documentation of history and physical. Last Colonoscopy: more than 10 years ago. Referring Physician: Yenifer Vines (Referring MD) Medicines: Fentanyl 125 micrograms IV, Midazolam 5 mg IV, Diphenhydramine 50 mg IV Complications: No immediate complications. Requesting Provider: Procedure: Pre-Anesthesia Assessment: - Prior to the procedure, a History and Physical was performed, and patient medications and allergies were reviewed. The patient is competent. The risks and benefits of the procedure and the sedation options and risks were discussed with the patient. All questions were answered and informed consent was obtained. Patient identification and proposed procedure were verified by the physician and the nurse in the pre-procedure area in the endoscopy suite. Mental Status Examination: alert and oriented. Airway Examination: normal oropharyngeal airway and neck mobility. Respiratory Examination: clear to auscultation. CV Examination: normal. Prophylactic Antibiotics: The patient does not require prophylactic antibiotics. Prior Anticoagulants: The patient has taken no anticoagulant or antiplatelet agents. ASA Grade Assessment: I - A normal, healthy patient. After reviewing the risks and benefits, the patient was deemed in satisfactory condition to undergo the procedure. The anesthesia plan was to use moderate sedation / analgesia (conscious sedation). Immediately prior to administration of medications, the patient was re-assessed for adequacy to receive sedatives. The heart rate, respiratory rate, oxygen saturations, blood pressure, adequacy of pulmonary ventilation, and response to care were monitored throughout the procedure. The physical status of the patient was re-assessed after the procedure. After I obtained informed consent, the scope was passed under direct vision. Throughout the procedure, the patient's blood pressure, pulse, and oxygen saturations were monitored continuously. The Colonoscope was introduced through the anus and advanced to the cecum, identified by the appendiceal orifice. The colonoscopy was somewhat difficult due to a redundant colon, significant looping and a tortuous colon. Successful completion of the procedure was aided by increasing the dose of sedation medication, changing the patient to a supine position, using manual pressure and applying abdominal pressure. The ileocecal valve, appendiceal orifice, and rectum were photographed. The patient tolerated the procedure well. The quality of the bowel preparation was excellent. The ileocecal valve, appendiceal orifice, and rectum were photographed. Moderate Sedation: Moderate (conscious) sedation was administered by the nurse and supervised by the endoscopist. The following parameters were monitored: oxygen saturation, heart rate, blood pressure, and response to care. Total physician intraservice time was 57 minutes. The administration of moderate sedation was initiated at 08:23 AM. Findings: Hemorrhoids were found on perianal exam. The colon (entire examined portion) appeared normal. Impression: - Hemorrhoids found on perianal exam. - The entire examined colon is normal. - No specimens collected. Recommendation: - Discharge patient to home (ambulatory). - Resume previous diet today. - The patient is not currently taking anticoagulant or antiplatelet agents. - Repeat colonoscopy in 10 years for surveillance. - Return to primary care physician PRN. - Patient has a contact number available for emergencies. The signs and symptoms of potential delayed complications were discussed with the patient. Return to normal activities tomorrow. Written discharge instructions were provided to the patient. - Continue present medications. Diagnosis Code(s): --- Professional --- Z12.11, Encounter for screening for malignant neoplasm of colon K64.9, Unspecified hemorrhoids Attending Participation: I personally performed the entire procedure. Scope In: 8:27:04 AM Scope Out: 9:20:03 AM DO Gera RUST, 01/11/2024 9:42:22 AM This report has been signed electronically by Gera Francois Number of Addenda: 0 Note Initiated On: 01/11/2024 7:42 AM Estimated Blood Loss: Estimated blood loss: none. Normal [facility] Colonoscopy Study observatio non 01-11-2024 [facility] Gastrointestinal Endoscopy Patient Name: Nicole Cadena Procedure Date: 01/11/2024 7:42 AM Date of : 1965 Admit Type: Outpatient Age: 58 Gender: Female Note Status: Finalized Procedure: Colonoscopy Indications: Screening for colorectal malignant neoplasm Providers: Gera Francois Patient Profile: This is a 58 year old female. Refer to note in patient chart for documentation of history and physical. Last Colonoscopy: more than 10 years ago. Referring Physician: Yenifer Vines (Referring ) Medicines: Fentanyl 125 micrograms IV, Midazolam 5 mg IV, Diphenhydramine 50 mg IV Complications: No immediate complications. Requesting Provider: Procedure: Pre-Anesthesia Assessment: - Prior to the procedure, a History and Physical was performed, and patient medications and allergies were reviewed. The patient is competent. The risks and benefits of the procedure and the sedation options and risks were discussed with the patient. All questions were answered and informed consent was obtained. Patient identification and proposed procedure were verified by the physician and the nurse in the pre-procedure area in the endoscopy suite. Mental Status Examination: alert and oriented. Airway Examination: normal oropharyngeal airway and neck mobility. Respiratory Examination: clear to auscultation. CV Examination: normal. Prophylactic Antibiotics: The patient does not require prophylactic antibiotics. Prior Anticoagulants: The patient has taken no anticoagulant or antiplatelet agents. ASA Grade Assessment: I - A normal, healthy patient. After reviewing the risks and benefits, the patient was deemed in satisfactory condition to undergo the procedure. The anesthesia plan was to use moderate sedation / analgesia (conscious sedation). Immediately prior to administration of medications, the patient was re-assessed for adequacy to receive sedatives. The heart rate, respiratory rate, oxygen saturations, blood pressure, adequacy of pulmonary ventilation, and response to care were monitored throughout the procedure. The physical status of the patient was re-assessed after the procedure. After I obtained informed consent, the scope was passed under direct vision. Throughout the procedure, the patient's blood pressure, pulse, and oxygen saturations were monitored continuously. The Colonoscope was introduced through the anus and advanced to the cecum, identified by the appendiceal orifice. The colonoscopy was somewhat difficult due to a redundant colon, significant looping and a tortuous colon. Successful completion of the procedure was aided by increasing the dose of sedation medication, changing the patient to a supine position, using manual pressure and applying abdominal pressure. The ileocecal valve, appendiceal orifice, and rectum were photographed. The patient tolerated the procedure well. The quality of the bowel preparation was excellent. The ileocecal valve, appendiceal orifice, and rectum were photographed. Moderate Sedation: Moderate (conscious) sedation was administered by the nurse and supervised by the endoscopist. The following parameters were monitored: oxygen saturation, heart rate, blood pressure, and response to care. Total physician intraservice time was 57 minutes. The administration of moderate sedation was initiated at 08:23 AM. Findings: Hemorrhoids were found on perianal exam. The colon (entire examined portion) appeared normal. Impression: - Hemorrhoids found on perianal exam. - The entire examined colon is normal. - No specimens collected. Recommendation: - Discharge patient to (more content not included)... PROVATION [facility] Radiology Study observation (narrative) [facility] HISTORY PHYSICALon 4 HISTORY PHYSICAL HNO ID: [id number] Author: GERA FRANCOIS DO Service: General Surgery Author Type: Physician Type: H&P Filed: 01/11/2024 08:11 Note Text: PROCEDURAL SEDATION HISTORY AND PHYSICAL EXAM SERVICE DATE: 01/11/2024 SERVICE TIME: 8:09 AM Subjective HPI: This is a 58 year old female who presents for screening colonoscopy PAST ANESTHESIA HISTORY: No history of adverse event PAST MEDICAL HISTORY No date: Female infertility of unspecified origin Comment: Female infertility No date: Hemorrhage of gastrointestinal tract, unspecified No date: PMH - PAST MEDICAL HISTORY OF Comment: kidney stones No date: Unspecified , without mention of complication, unspecified PAST SURGICAL HISTORY 01/07/2012: COLONOSCOPY FLX DX W/COLLJ SPEC WHEN PFRMD Comment: Colonoscopy No date: CURETTAGE No date: IANDD THYROGLOSSAL DUCT CYST Comment: 202202/26/2015: LAPAROSCOPY ENTEROLYSIS SEPARATE PROCEDURE 08/15/2004: PAST SURGICAL HISTORY OF Comment: appendectomy, laparoscopy No date: SALPINGECTOMY Comment: left No date: [place] ECTOPIC ABDL Prior to Admission medications as of 01/11/24 0736 Medication Sig Last Dose Taking ESTRADIOL ORAL Take by mouth. Estriold 2mg/ Estradiol 0.25mg/ estrone 0.25/ DHEA 5mg/ testosterone 0.5mg/ progesterone 200mg BELLA 01/10/2024 Yes Magnesium Glycinate 100 mg tab 01/10/2024 Yes ergocalciferol, vitamin D2, (VITAMIN D2 ORAL) Take by mouth. 01/10/2024 Yes Iodine liqd 01/10/2024 Yes MULTIVITAMIN TAB Take one(1) tablet daily. 01/10/2024 Yes EPINEPHrine (EPIPEN) 0.3 mg/0.3 mL auto-injector USE DIRECTED NEEDED FOR ALLERGIC REACTION Unknown DOCOSAHEXANOIC ACID/EPA (FISH OIL ORAL) Take by mouth. 01/05/2024 ALLERGIES Allergen Reactions Codeine Intolerance, GI Upset Objective PHYSICAL EXAM: The remainder of the physical exam is noncontributory. AIRWAY: patent LUNGS: CTAB CARDIAC: , RR Assessment/Plan ASA Class: Active Problems: * No active hospital problems. * Resolved Problems: * No resolved hospital problems. * Medication and Non-Pharmacologic VTE Prophylaxis/Anticoagula nts VTE Prophylaxis: NA Provisional Diagnosis/Treatment Plan: Proceed with screening colonoscopy SIGNATURE: Gera Francois DO PATIENT NAME: Nicole Cadena DATE: January 11, 2024 TIME: 8:09 AM Normal [facility] NURSING PROGon 01-11-2024 NURSING PROG HNO ID: [id number] Author: MICHELLE DEE, RN Service: ? Author Type: Registered Nurse Type: Nursing Progress Note Filed: 01/11/2024 09:53 Note Text: Patient received in phase II via cart in left lateral position, eyes open, alert and oriented x 3, skin warm and dry, respirations regular and unlabored, abdomen soft and non distended. Denies pain, nausea or cramping. Resting on left side comfortably. Normal [facility] CNCOon 01-03-2024 CNCO HNO ID: [id number] Author: COORDINATOR, MAMMOGRAPHY, ? Service: ? Author Type: Physician Type: Letter Filed: 01/03/2024 10:12 Note Text: January 03, 2024 PID: [id number] Nicole Cadena [address] [place] [address] Dear Ms. Cadena, We are pleased to inform you that the results of your recent breast imaging exam on 01/03/2024 are normal. Breast tissue can be either dense or not dense. Dense tissue makes it harder to find breast cancer on a mammogram and also raises the risk of developing breast cancer. Your breast tissue is not dense. Talk to your healthcare provider about breast density, risks for breast cancer, and your individual situation. Early detection of cancer is very important. We also understand recommendations regarding breast cancer screening are controversial. Please discuss with your primary care provider which strategy is best for you and whether a mammogram is right for you. Your imaging studies and report will be kept on file at [facility] as part of your permanent medical record and are available for your continuing care. Thank you for allowing us to help in meeting your health care needs. Sincerely, Dr. Sood Interpreting Radiologist [facility] (Normal over 40) Normal [facility] CNOVon 01-03-2024 CNOV Office Visit (GENSWS ) NICOLE CADENA ([id number]) 1965 F Date Time Provider Department 01/03/24 11:00 AM YENIFER VINES During your visit today, we recorded the following information about you: Temperature Pulse Blood pressure Weight 98 degrees 90/minute 112/70 67.4 kg Height 1.613 m Yenifer Vines APRN.SQL SERVER CONSULTANT 01/03/2024 1:42 PM Signed HISTORY AND PHYSICAL Nicole Cadena : 1965 REFERRING PHYSICIAN: [address] [facility] [address] CHIEF COMPLAINT: Patient presents with: Consult: COLONOSCOPY HPI: Nicole is a 58 year old female referred for endoscopy. Nicole notes due for screening colonoscopy. Patient denies any change in bowel habits, weight changes, blood in stools, black tarry stools or abdominal pain. Denies family history of colon issues. Nicole notes denies upper GI complaints. Nicole has a history of small bowel obstruction due to adhesions in 2014. Nicole has undergone prior endoscopy. Last colonoscopy was 12/[address] Arguello at [facility]. Sedation received:Meperidine 65 mg IV, Midazolam 3.5 mg IV Impression: - Non-bleeding internal hemorrhoids. Current Outpatient Medications Medication Sig ESTRADIOL ORAL Take by mouth. Estriold 2mg/ Estradiol 0.25mg/ estrone 0.25/ DHEA 5mg/ testosterone 0.5mg/ progesterone 200mg BELLA Magnesium Glycinate 100 mg tab EPINEPHrine (EPIPEN) 0.3 mg/0.3 mL auto-injector USE DIRECTED NEEDED FOR ALLERGIC REACTION ergocalciferol, vitamin D2, (VITAMIN D2 ORAL) Take by mouth. Iodine liqd DOCOSAHEXANOIC ACID/EPA (FISH OIL ORAL) Take by mouth. MULTIVITAMIN TAB Take one(1) tablet daily. QUERCETIN DIHYDRATE, BULK, MISC topical cream metered-dose dev luz Hormone replacement cream (Patient not taking: Reported on 12/29/2023) No current facility-administered medications for this visit. ALLERGIES: Codeine PAST MEDICAL HISTORY No date: Female infertility of unspecified origin Comment: Female infertility No date: Hemorrhage of gastrointestinal tract, unspecified No date: PMH - PAST MEDICAL HISTORY OF Comment: kidney stones No date: Unspecified , without mention of complication, unspecified PAST SURGICAL HISTORY 01/07/2012: COLONOSCOPY FLX DX W/COLLJ SPEC WHEN PFRMD Comment: Colonoscopy No date: CURETTAGE No date: IANDD THYROGLOSSAL DUCT CYST Comment: 202202/26/2015: LAPAROSCOPY ENTEROLYSIS SEPARATE PROCEDURE 08/15/2004: PAST SURGICAL HISTORY OF Comment: appendectomy, laparoscopy No date: SALPINGECTOMY Comment: left No date: [place] ECTOPIC ABDL FAMILY HISTORY Problem Relation Age of Onset Cancer Father Thyroid Hypertension Sister Hyperlipidemia Sister Hypertension Brother Hyperlipidemia Brother Social History Tobacco Use Smoking status: Never Smokeless tobacco: Never Vaping Use Vaping status: Never Used Substance Use Topics Alcohol use: No Drug use: No REVIEW OF SYMPTOMS: The review of systems data was entered by the nurse and reviewed by nv Nursing Notes: Edna Panda RN 01/03/2024 11:10 AM Signed REVIEW OF SYSTEMS: General: The patient denies fatigue, denies weight loss, denies weight gain, denies feeling hot, and denies feelings of cold. Eyes: The patient denies glaucoma, denies eye injury/surgery, does not wear glasses or contacts. Ear/Nose/Throat: The patient denies allergies, denies hayfever, denies ear infections, and denies bloody noses. Cardiovascular: The patient denies chest pain, denies heart disease, denies high blood pressure,denies cardiac stent, denies prior heart attack, denies irregular heart beat, denies high cholesterol, denies poor circulation, denies heart failure, other cardiac issues, denies claudication, denies cold feet, denies peripheral arterial stent. Respiratory: The patient denies tuberculosis, denies pneumonia, denies frequent cough, denies pulmonary embolism, denies shortness of breath, and denies coughing up blood. Gastrointestinal: The patient denies difficulty swallowing, denies acid reflux, denies ulcers, denies vomiting, denies jaundice/hepatitis, denies gallbladder problems, denies black or tarry stools, denies hemorrhoids, denies bleeding from rectum, denies diverticulitis, denies constipation, denies diarrhea, denies loss of stool control, and denies hernias. Kidney/Bladder: The patient denies kidney stones, denies urine infections, and denies bloody urine. Skin: The patient denies a history of skin cancer, denies bleeding/changing moles, and denies a history of skin rash. Neurologic: The patient denies a history of epilepsy/convulsions, denies headaches, denies head/spinal injuries, and denies stroke/TIA. Psychiatric: The patient denies psychiatric medications, denies depression, and denies voices, denies substance abuse. Endocrine: The patien (more content not included)... Normal [facility] DBT Breast - bilateral scree ningon 01-03-2024 IMPRESSION: NEGATIVE There is no mammographic evidence of malignancy. A 1 year screening mammogram is recommended. Maye Sood M.D., cp/abiola:01/03/2024 10:12:12 Cst(s): RT Randell(R)(M), [facility] letter sent: Normal over 40 Mammogram BI-RADS: Category 1: Negative Multiple national specialty organizations have released breast cancer screening guidelines for women at average risk for developing breast cancer - guidelines that are based on both evidence and opinion, yet differ on when to start and how often to screen for breast cancer. With representation from Breast Imaging, Internal Medicine, Women's Health, Family Medicine, and Medical/Surgical Oncology, the [facility] has carefully reviewed the data and reached the following consensus: 1) All women should engage in shared decision-making with their providers to decide when to start and how often to screen; 2) All women should have the opportunity to start screening mammography at age 40; 3) For women ages 45-55, we recommend annual screening mammograms; 4) For women ages 55 and over, we support both the transition from an annual to a biennial interval if this aligns more with patient's values and preferences, or continuation with annual screening; 5) All women should discuss with their providers when to stop screening mammograms. Photocopying Equipment Repairer: Abiola Transcribe Date/Time: Jan 03 2024 8:28A Dictated by: MAYE SOOD MD This examination was interpreted and the report reviewed and electronically signed by: MAYE SOOD MD on Jan 03 2024 10:12AM [facility] DIVISION OF RADIOLOGY * * *Final Report* * * DATE OF EXAM: Jan 03 2024 8:54AM [facility] 0582 - [facility] SCREENING W KEI / PROCEDURE REASON: Encounter for screening mammogram for breast cancer * * * * Physician Interpretation * * * * RESULT: #[id number] - JOSE SCREENING W KEI BILATERAL DIGITAL SCREENING MAMMOGRAM TOMOSYNTHESIS WITH CAD: 01/03/2024 HISTORY: Encounter For Screening Mammogram For Breast Cancer / Screening Mammogram-Patient reports NO symptoms. /priors available for comparison. RESULT: TECHNIQUE: The study was acquired using full field digital technology and interpreted from soft copy. Digital Breast Tomosynthesis (DBT) images were obtained and used to assist in the interpretation of this examination. Current study was also evaluated with a Computer Aided Detection (CAD). Comparison is made to exams dated: 02/12/2021 mammogram and 08/20/2016 mammogram - [facility]. There are scattered areas of fibroglandular density. No significant masses, calcifications, or other findings are seen in either breast. There has been no significant interval change. DIVISION OF RADIOLOGY Provider, [facility] - 01/03/2024 * * *Final Report* * * DATE OF EXAM: Jan 03 2024 8:54AM [facility] 0582 - [facility] SCREENING W KEI / PROCEDURE REASON: Encounter for screening mammogram for breast cancer * * * * Physician Interpretation * * * * RESULT: #[id number] - JOSE SCREENING W KEI BILATERAL DIGITAL SCREENING MAMMOGRAM TOMOSYNTHESIS WITH CAD: 01/03/2024 HISTORY: Encounter For Screening Mammogram For Breast Cancer / Screening Mammogram-Patient reports NO symptoms. /priors available for comparison. RESULT: TECHNIQUE: The study was acquired using full field digital technology and interpreted from soft copy. Digital Breast Tomosynthesis (DBT) images were obtained and used to assist in the interpretation of this examination. Current study was also evaluated with a Computer Aided Detection (CAD). Comparison is made to exams dated: 02/12/2021 mammogram and 08/20/2016 mammogram - [facility]. There are scattered areas of fibroglandular density. No significant masses, calcifications, or other findings are seen in either breast. There has been no significant interval change. IMPRESSION IMPRESSION: NEGATIVE There is no mammographic evidence of malignancy. A 1 year screening mammogram is recommended. Maye Sood M.D., cp/abiola:01/03/2024 10:12:12 Cst(s): RT Randell(R)(M), [facility] letter sent: Normal over 40 Mammogram BI-RADS: Category 1: Negative Multiple national specialty organizations have released breast cancer screening guidelines for women at average risk for developing breast cancer - guidelines that are based on both evidence and opinion, yet differ on when to start and how often to screen for breast cancer. With representation from Breast Imaging, Internal Medicine, Women's Health, Family Medicine, and Medical/Surgical Oncology, the [facility] has carefully reviewed the data and reached the following consensus: 1) All women should engage in shared decision-making with their providers to decide when to start and how often to screen; 2) All women should have the opportunity to start screening mammography at age 40; 3) For women ages 45-55, we recommend annual screening mammograms; 4) For women ages 55 and over, we support both the transition from an annual to a biennial interval if this aligns more with patient's values and preferences, or continuation with annual screening; 5) All women should discuss with their providers when to stop screening mammograms. Photocopying Equipment Repairer: Abiola Transcribe Date/Time: Jan 03 2024 8:28A Dictated by: MAYE SOOD MD This examination was interpreted and the report reviewed and electronically signed by: MAYE SOOD MD on Jan 03 2024 10:12AM EST [facility] Radiology Study observation (narrative) [facility] DBT Breast - bilateral scree ningOrdered By: [facility] Provider on 01-03-2024 [facility] JOSE SCREENING W TOMOon 01-02 JOSE SCREENING W KEI * * *Final Report* * * DATE OF EXAM: Jan 03 2024 8:54AM [facility] 0582 - JOSE SCREENING W KEI / PROCEDURE REASON: Encounter for screening mammogram for breast cancer * * * * Physician Interpretation * * * * RESULT: #[id number] - JOSE SCREENING W KEI BILATERAL DIGITAL SCREENING MAMMOGRAM TOMOSYNTHESIS WITH CAD: 01/03/2024 HISTORY: Encounter For Screening Mammogram For Breast Cancer / Screening Mammogram-Patient reports NO symptoms. /priors available for comparison. RESULT: TECHNIQUE: The study was acquired using full field digital technology and interpreted from soft copy. Digital Breast Tomosynthesis (DBT) images were obtained and used to assist in the interpretation of this examination. Current study was also evaluated with a Computer Aided Detection (CAD). Comparison is made to exams dated: 02/12/2021 mammogram and 08/20/2016 mammogram - [facility]. There are scattered areas of fibroglandular density. No significant masses, calcifications, or other findings are seen in either breast. There has been no significant interval change. IMPRESSION: NEGATIVE There is no mammographic evidence of malignancy. A 1 year screening mammogram is recommended. Maye Sood M.D., cp/abiola:01/03/2024 10:12:12 Cst(s): RT Randell(R)(M), [facility] letter sent: Normal over 40 Mammogram BI-RADS: Category 1: Negative Multiple national specialty organizations have released breast cancer screening guidelines for women at average risk for developing breast cancer - guidelines that are based on both evidence and opinion, yet differ on when to start and how often to screen for breast cancer. With representation from Breast Imaging, Internal Medicine, Women's Health, Family Medicine, and Medical/Surgical Oncology, the [facility] has carefully reviewed the data and reached the following consensus: 1) All women should engage in shared decision-making with their providers to decide when to start and how often to screen; 2) All women should have the opportunity to start screening mammography at age 40; 3) For women ages 45-55, we recommend annual screening mammograms; 4) For women ages 55 and over, we support both the transition from an annual to a biennial interval if this aligns more with patient's values and preferences, or continuation with annual screening; 5) All women should discuss with their providers when to stop screening mammograms. Photocopying Equipment Repairer: Abiola Transcribe Date/Time: Jan 03 2024 8:28A Dictated by: MAYE SOOD MD This examination was interpreted and the report reviewed and electronically signed by: MAYE SOOD MD on Jan 03 2024 10:12AM EST [id number] Normal [facility] .Auto Diffon 03-01-2023 Basophils/100 WBC (Bld) 0.5 % Normal 0.0-2.5 [facility] ([place]) Comment on above: Performed By: #### A DIFF, CBC, ANEU, MORPH, DIFF #### [address] [address] Eosinophils/100 WBC (Bld) 3.0 % Normal 0.0-7.0 [facility] ([place]) Comment on above: Performed By: #### A DIFF, CBC, ANEU, MORPH, DIFF #### [address] [address] Lymphocytes/100 WBC (Bld) 52.3 % High 10.0-50.0 [facility] ([place]) Comment on above: Performed By: #### A DIFF, CBC, ANEU, MORPH, DIFF #### [address] [address] Monocytes/100 WBC (Bld) 8.2 % Normal 1.7-13.0 [facility] ([place]) Comment on above: Performed By: #### A DIFF, CBC, ANEU, MORPH, DIFF #### [address] [address] Neutrophils/100 WBC (Bld) 36.0 % Low 37.0-80.0 [facility] ([place]) Comment on above: Performed By: #### A DIFF, CBC, ANEU, MORPH, DIFF #### [address] [address] Basophil, Absolute 0.0 10 3/mcL Normal 0.0-0.2 [facility] ([place]) Comment on above: Performed By: #### A DIFF, CBC, ANEU, MORPH, DIFF #### [address] [address] Eosinophil, Absolute 0.1 10 3/mcL Normal 0.0-0.4 [facility] ([place]) Comment on above: Performed By: #### A DIFF, CBC, ANEU, MORPH, DIFF #### [address] [address] Lymphocyte, Absolute 2.0 10 3/mcL Normal 0.8-3.9 [facility] ([place]) Comment on above: Performed By: #### A DIFF, CBC, ANEU, MORPH, DIFF #### [address] [address] Monocyte, Absolute 0.3 10 3/mcL Normal 0.2-1.0 [facility] ([place]) Comment on above: Performed By: #### A DIFF, CBC, ANEU, MORPH, DIFF #### [address] [address] .GFRon 03-01-2023 GFR Non- 57 ml/min/1.73sqm Normal [facility] ([place]) Comment on above: Result Comment: GFR Population mean for , Non- Americans Ages 20-29 = 116 mL/min/1.73 sq.m. Ages 30-39 = 107 mL/min/1.73 sq.m. Ages 40-49 = 99 mL/min/1.73 sq.m. Ages 50-59 = 93 mL/min/1.73 sq.m. Ages 60-69 = 85 mL/min/1.73 sq.m. Ages 70+ = 75 mL/min/1.73 sq.m. Chronic Kidney Disease: Less than 60 mL/min/1.73 square meters End Stage Renal Disease: Less than 15 mL/min/1.73 square meters Performed By: #### A DIFF, CBC, ANEU, MORPH, DIFF #### [address] [address] GFR 69 ml/min/1.73sqm Normal [facility] ([place]) Comment on above: Result Comment: GFR Population mean for , Non- Americans Ages 20-29 = 116 mL/min/1.73 sq.m. Ages 30-39 = 107 mL/min/1.73 sq.m. Ages 40-49 = 99 mL/min/1.73 sq.m. Ages 50-59 = 93 mL/min/1.73 sq.m. Ages 60-69 = 85 mL/min/1.73 sq.m. Ages 70+ = 75 mL/min/1.73 sq.m. Chronic Kidney Disease: Less than 60 mL/min/1.73 square meters End Stage Renal Disease: Less than 15 mL/min/1.73 square meters Performed By: #### A DIFF, CBC, ANEU, MORPH, DIFF #### [address] [address] .Manual Diffon 03-01-2023 Atypical Lymphs 3.0 % Normal 0.0-5.0 [facility] ([place]) Comment on above: Performed By: #### A DIFF, CBC, ANEU, MORPH, DIFF #### [address] [address] Eosinophil %, Manual 2.0 % Normal 0.0-7.0 [facility] ([place]) Comment on above: Performed By: #### A DIFF, CBC, ANEU, MORPH, DIFF #### [address] [address] Lymphocyte %, Manual 48.0 % Normal 10.0-50.0 [facility] ([place]) Comment on above: Performed By: #### A DIFF, CBC, ANEU, MORPH, DIFF #### [address] [address] Monocyte %, Manual 8.0 % Normal 1.7-13.0 [facility] ([place]) Comment on above: Performed By: #### A DIFF, CBC, ANEU, MORPH, DIFF #### [address] [address] Neutrophil %, Manual 39.0 % Normal 37.0-80.0 [facility] ([place]) Comment on above: Performed By: #### A DIFF, CBC, ANEU, MORPH, DIFF #### [address] [address] .Morphon 03-01-2023 Anisocytosis Ql (Bld) 1+ Normal [facility] ([place]) Comment on above: Performed By: #### A DIFF, CBC, ANEU, MORPH, DIFF #### [address] [address] Platelet Estimate Normal Normal [facility] ([place]) Comment on above: Performed By: #### A DIFF, CBC, ANEU, MORPH, DIFF #### [address] [address] .NEUABSon 03-01-2023 Neutrophil, Absolute 1.4 10 3/mcL Low 2.9-6.2 [facility] ([place]) Comment on above: Performed By: #### A DIFF, CBC, ANEU, MORPH, DIFF #### [place] [address] CBCon 03-01-2023 Erythrocyte distribution width (RBC) [Ratio] 14.0 % Normal 11.5-14.5 [facility] ([place]) Comment on above: Performed By: #### A DIFF, CBC, ANEU, MORPH, DIFF #### [place] [address] Hematocrit (Bld) [Volume fraction] 41.8 % Normal 37.0-47.0 [facility] ([place]) Comment on above: Performed By: #### A DIFF, CBC, ANEU, MORPH, DIFF #### [place] [address] Hgb 14.0 G/dL Normal 12.0-16.0 [facility] ([place]) Comment on above: Performed By: #### A DIFF, CBC, ANEU, MORPH, DIFF #### [place] [address] MCH (RBC) [Entitic mass] 30.0 pg Normal 27.0-31.2 [facility] ([place]) Comment on above: Performed By: #### A DIFF, CBC, ANEU, MORPH, DIFF #### [place] [address] MCHC 33.4 G/dL Normal 33.0-37.0 [facility] ([place]) Comment on above: Performed By: #### A DIFF, CBC, ANEU, MORPH, DIFF #### [place] [address] MCV (RBC) [Entitic vol] 89.9 fL Normal 80.0-94.0 [facility] ([place]) Comment on above: Performed By: #### A DIFF, CBC, ANEU, MORPH, DIFF #### [address] [address] Platelet 304 10 3/mcL Normal 130-400 [facility] ([place]) Comment on above: Performed By: #### A DIFF, CBC, ANEU, MORPH, DIFF #### [address] [address] Platelet mean volume (Bld) [Entitic vol] 7.0 fL Low 7.4-10.4 [facility] ([place]) Comment on above: Performed By: #### A DIFF, CBC, ANEU, MORPH, DIFF #### [place] [address] RBC 4.65 10 6/mcL Normal 4.20-5.40 [facility] ([place]) Comment on above: Performed By: #### A DIFF, CBC, ANEU, MORPH, DIFF #### [place] [address] WBC 3.8 10 3/mcL Low 4.6-10.8 [facility] ([place]) Comment on above: Performed By: #### A DIFF, CBC, ANEU, MORPH, DIFF #### [place] [address] CMPon 03-01-2023 Albumin Level 3.9 G/dL Normal 3.5-5.0 [facility] ([place]) Comment on above: Performed By: #### A DIFF, CBC, ANEU, MORPH, DIFF #### [place] [id number] Albumin/Globulin [Mass ratio] 1.1 {ratio} Normal 1.1-2.5 [facility] ([place]) Comment on above: Performed By: #### A DIFF, CBC, ANEU, MORPH, DIFF #### [address] [address] ALP [Catalytic activity/Vol] 80 U/L Normal 40-135 [facility] ([place]) Comment on above: Performed By: #### A DIFF, CBC, ANEU, MORPH, DIFF #### [place] [id number] ALT [Catalytic activity/Vol] 28 U/L Normal 14-59 [facility] ([place]) Comment on above: Performed By: #### A DIFF, CBC, ANEU, MORPH, DIFF #### [address] [address] AST [Catalytic activity/Vol] 20 U/L Normal 10-40 [facility] ([place]) Comment on above: Performed By: #### A DIFF, CBC, ANEU, MORPH, DIFF #### [address] [address] Bili Total 0.6 mg/dL Normal 0.2-1.0 [facility] ([place]) Comment on above: Result Comment: Use of this assay is not recommended for patients undergoing treatment with eltrombopag due to the potential for falsely elevated results. Performed By: #### A DIFF, CBC, ANEU, MORPH, DIFF #### [address] [address] BUN/Creatinine Ratio 21 ratio Normal 7-27 [facility] ([place]) Comment on above: Performed By: #### A DIFF, CBC, ANEU, MORPH, DIFF #### [address] [address] Calcium [Mass/Vol] 9.1 mg/dL Normal 8.4-10.2 [facility] ([place]) Comment on above: Performed By: #### A DIFF, CBC, ANEU, MORPH, DIFF #### [address] [address] Chloride [Moles/Vol] 104 mmol/L Normal 98-107 [facility] ([place]) Comment on above: Performed By: #### A DIFF, CBC, ANEU, MORPH, DIFF #### [address] [address] CO2 [Moles/Vol] 30 mmol/L High 22-29 [facility] ([place]) Comment on above: Performed By: #### A DIFF, CBC, ANEU, MORPH, DIFF #### [address] [address] Creatinine [Mass/Vol] 1.00 mg/dL Normal 0.55-1.02 [facility] ([place]) Comment on above: Performed By: #### A DIFF, CBC, ANEU, MORPH, DIFF #### [address] [address] Electrolyte Balance 7.0 mEq/L Normal 4.0-15.0 [facility] ([place]) Comment on above: Performed By: #### A DIFF, CBC, ANEU, MORPH, DIFF #### [address] [address] Globulin 3.5 G/dL Normal [facility] ([place]) Comment on above: Performed By: #### A DIFF, CBC, ANEU, MORPH, DIFF #### [address] [address] Glucose [Mass/Vol] 98 mg/dL Normal 70-105 [facility] ([place]) Comment on above: Performed By: #### A DIFF, CBC, ANEU, MORPH, DIFF #### [address] [address] Potassium [Moles/Vol] 4.5 mmol/L Normal 3.5-5.1 [facility] ([place]) Comment on above: Performed By: #### A DIFF, CBC, ANEU, MORPH, DIFF #### [address] [address] Sodium [Moles/Vol] 141 mmol/L Normal 136-145 [facility] ([place]) Comment on above: Performed By: #### A DIFF, CBC, ANEU, MORPH, DIFF #### [address] [address] Total Protein 7.4 G/dL Normal 6.4-8.2 [facility] ([place]) Comment on above: Performed By: #### A DIFF, CBC, ANEU, MORPH, DIFF #### [address] [address] Urea nitrogen [Mass/Vol] 21 mg/dL High 7-18 [facility] ([place]) Comment on above: Performed By: #### A DIFF, CBC, ANEU, MORPH, DIFF #### [place] [id number] [place], [place] [address] LABORATORYOrdered By: SYSTEM SYSTEM on 03-01-2023 Albumin BCP dye [Mass/Vol] 3.9 G/dL Invalid Interpretation Code 3.5 - 5.0 G/dL AO ADM SS Albumin/Globulin [Mass ratio] 1.1 {ratio} Invalid Interpretation Code 1.1 - 2.5 ratio AO ADM SS ALP [Catalytic activity/Vol] 80 U/L Invalid Interpretation Code 40 - 135 U/L AO ADM SS ALT With P-5'-P [Catalytic activity/Vol] 28 U/L Invalid Interpretation Code 14 - 59 U/L AO ADM SS AST With P-5'-P [Catalytic activity/Vol] 20 U/L Invalid Interpretation Code 10 - 40 U/L AO ADM SS Basophils/100 WBC (Bld) 0.5 % Invalid Interpretation Code 0.0 - 2.5 % AO Workflow SS Bilirubin [Mass/Vol] 0.6 mg/dL Invalid Interpretation Code 0.2 - 1.0 mg/dL AO ADM SS Comment on above: Interpretive Data: U se of this assay is not recommended for patients undergoing treatment with eltrombopag due to the potential for falsely elevated results. Calcium [Mass/Vol] 9.1 mg/dL Invalid Interpretation Code 8.4 - 10.2 mg/dL AO ADM SS Chloride [Moles/Vol] 104 mmol/L Invalid Interpretation Code 98 - 107 mmol/L AO ADM SS CO2 [Moles/Vol] 30 mmol/L Invalid Interpretation Code 22 - 29 mmol/L AO ADM SS Creatinine [Mass/Vol] 1.00 mg/dL Invalid Interpretation Code 0.55 - 1.02 mg/dL AO ADM SS Electrolyte Balance 7.0 mEq/L Invalid Interpretation Code 4.0 - 15.0 mEq/L AO ADM SS Eosinophils/100 WBC (Bld) 3.0 % Invalid Interpretation Code 0.0 - 7.0 % AO Workflow SS Erythrocyte distribution width (RBC) [Ratio] 14.0 % Invalid Interpretation Code 11.5 - 14.5 % AO Workflow SS GFR/1.73 sq M.predicted among blacks MDRD (S/P/Bld) [Vol rate/Area] 69 ml/min/1.73sqm Invalid Interpretation Code AO Chemistry S Comment on above: Interpretive Data: GFR Population mean for , Non- Americans Ages 20-29 = 116 mL/min/1.73 sq.m. Ages 30-39 = 107 mL/min/1.73 sq.m. Ages 40-49 = 99 mL/min/1.73 sq.m. Ages 50-59 = 93 mL/min/1.73 sq.m. Ages 60-69 = 85 mL/min/1.73 sq.m. Ages 70+ = 75 mL/min/1.73 sq.m. Chronic Kidney Disease: Less than 60 mL/min/1.73 square meters End Stage Renal Disease: Less than 15 mL/min/1.73 square meters GFR/1.73 sq M.predicted among non-blacks MDRD (S/P/Bld) [Vol rate/Area] 57 ml/min/1.73sqm Invalid Interpretation Code AO Chemistry S Comment on above: Interpretive Data: GFR Population mean for , Non- Americans Ages 20-29 = 116 mL/min/1.73 sq.m. Ages 30-39 = 107 mL/min/1.73 sq.m. Ages 40-49 = 99 mL/min/1.73 sq.m. Ages 50-59 = 93 mL/min/1.73 sq.m. Ages 60-69 = 85 mL/min/1.73 sq.m. Ages 70+ = 75 mL/min/1.73 sq.m. Chronic Kidney Disease: Less than 60 mL/min/1.73 square meters End Stage Renal Disease: Less than 15 mL/min/1.73 square meters Globulin 3.5 G/dL Invalid Interpretation Code AO ADM SS Glucose [Mass/Vol] 98 mg/dL Invalid Interpretation Code 70 - 105 mg/dL AO ADM SS Hematocrit (Bld) [Volume fraction] 41.8 % Invalid Interpretation Code 37.0 - 47.0 % AO Workflow SS Hemoglobin (Bld) [Mass/Vol] 14.0 G/dL Invalid Interpretation Code 12.0 - 16.0 G/dL AO Workflow SS Lymphocytes/100 WBC (Bld) 52.3 % Invalid Interpretation Code 10.0 - 50.0 % AO Workflow SS MCH (RBC) [Entitic mass] 30.0 pg Invalid Interpretation Code 27.0 - 31.2 pg AO Workflow SS MCHC 33.4 G/dL Invalid Interpretation Code 33.0 - 37.0 G/dL AO Workflow SS MCV (RBC) [Entitic vol] 89.9 fL Invalid Interpretation Code 80.0 - 94.0 fL AO Workflow SS Monocytes/100 WBC (Bld) 8.2 % Invalid Interpretation Code 1.7 - 13.0 % AO Workflow SS Neutrophils/100 WBC (Bld) 36.0 % Invalid Interpretation Code 37.0 - 80.0 % AO Workflow SS Platelet mean volume (Bld) [Entitic vol] 7.0 fL Invalid Interpretation Code 7.4 - 10.4 fL AO Workflow SS Platelets (Bld) [#/Vol] 304 103/mcL Invalid Interpretation Code 130 - 400 10^3/mcL AO Workflow SS Potassium [Moles/Vol] 4.5 mmol/L Invalid Interpretation Code 3.5 - 5.1 mmol/L AO ADM SS Protein [Mass/Vol] 7.4 G/dL Invalid Interpretation Code 6.4 - 8.2 G/dL AO ADM SS RBC (Bld) [#/Vol] 4.65 106/mcL Invalid Interpretation Code 4.20 - 5.40 10^6/mcL AO Workflow SS Sodium [Moles/Vol] 141 mmol/L Invalid Interpretation Code 136 - 145 mmol/L AO ADM SS TSH Qn 1.23 m[IU]/L Invalid Interpretation Code 0.36 - 3.74 mcIU/mL AO ADM SS Urea nitrogen [Mass/Vol] 21 mg/dL Invalid Interpretation Code 7 - 18 mg/dL AO ADM SS Urea nitrogen/Creatinine [Mass ratio] 21 ratio Invalid Interpretation Code 7 - 27 ratio AO ADM SS WBC (Bld) [#/Vol] 3.8 103/mcL Invalid Interpretation Code 4.6 - 10.8 10^3/mcL AO Workflow SS LABORATORYOrdered By: Sangita Lucas on 03-01-2023 Anisocytosis Ql (Bld) 1+ (03/01/23 7:23 AM) Invalid Interpretation Code AO Hematology S Basophil, Absolute 0.0 103/mcL Invalid Interpretation Code 0.0 - 0.2 10^3/mcL AO Hematology S Eosinophil %, Manual 2.0 1 Invalid Interpretation Code 0.0 - 7.0 % AO Hematology S Eosinophil, Absolute 0.1 103/mcL Invalid Interpretation Code 0.0 - 0.4 10^3/mcL AO Hematology S Lymphocyte %, Manual 48.0 1 Invalid Interpretation Code 10.0 - 50.0 % AO Hematology S Lymphocyte, Absolute 2.0 103/mcL Invalid Interpretation Code 0.8 - 3.9 10^3/mcL AO Hematology S Monocyte %, Manual 8.0 1 Invalid Interpretation Code 1.7 - 13.0 % AO Hematology S Monocyte, Absolute 0.3 103/mcL Invalid Interpretation Code 0.2 - 1.0 10^3/mcL AO Hematology S Neutrophil %, Manual 39.0 1 Invalid Interpretation Code 37.0 - 80.0 % AO Hematology S Neutrophil, Absolute 1.4 103/mcL Invalid Interpretation Code 2.9 - 6.2 10^3/mcL AO Hematology S Platelet Estimate Normal (03/01/23 7:23 AM) Invalid Interpretation Code AO Hematology S Variant lymphocytes/100 WBC (Bld) 3.0 % Invalid Interpretation Code 0.0 - 5.0 % AO Hematology S TSHon 03-01-2023 TSH Qn 1.23 m[IU]/L Normal 0.36-3.74 [facility] ([place]) Comment on above: Performed By: #### A DIFF, CBC, ANEU, MORPH, DIFF #### [address] [address] Final Surgical Pathology Rep [facility] 01-12-2023 Final Surgical Pathology Report . Pathology Reports Accession: Collected Date/Time: Received Date/Time: Pathologist: [id number] 01/07/2023 14:46 EDT 01/11/2023 10:57 EDT ISABEL ROBLES MD Final Surgical Pathology Report DIAGNOSIS: THYROGLOSSAL DUCT CYST, EXCISION: - CONSISTENT WITH THYROGLOSSAL CYST - NEGATIVE FOR MALIGNANCY Comment: The specimen consists of a benign cyst lined by ciliated and stratified squamous epithelium, osteocartilaginous tissue and skeletal muscle. 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 Received in formalin, labeled with the patients name, Case # [id number], and thyroglossal cyst is 2 portions of [place] to purple soft tissue combined measuring 2.6 x 2 x 1.5 cm. Located on the outer surface of the specimen is a portion of bone measuring 1.5 x 1 x 0.5 cm. TS -3, A1 -A2-soft tissue, A3 -bone following decalcification. Dictated by JAMES MENDEZ MICROSCOPIC DESCRIPTION: The microscopic examination is performed, except in the case of Gross Only. Electronically Signed by Pathology Report verified by [facility] ISABEL ROBLES Sign out Date: 01/12/2023 11:38 Performing Lab: [facility], [address] [place] [address] Pathology Dept Disclaimer If ancillary studies were utilized, the following Laboratory Developed Test (LDT) disclaimer will apply: Under CLIA requirements, [facility] is qualified to perform high complexity testing. For all ancillary stains, positive and negative controls stain appropriately. Performance characteristics of immunohistochemical and chromogenic in-situ hybridization tests have been determined by [facility]. These tests are used for clinical purposes, They should not be regarded as investigational or for research. Normal [facility] ([place]) EBVon 12-15-2022 EBV IgG Positive Normal Negative [facility] ([place]) Comment on above: Result Comment: INTE RPRETATION OF EBV IgG BY EIA: Negative: No detectable EBV IgG antibody. Result does not exclude EBV infection. Positive: EBV IgG antibody detected. Indicative of current or past infection. Equivocal: Equivocal for antibodies to EBV. Repeat testing if still indicated. Performed By: #### E BV #### [place] [address] EBV IgM Negative Normal Negative [facility] ([place]) Comment on above: Result Comment: INTE RPRETATION OF EBV IgM BY EIA: Negative: No detectable EBV IgM antibody. Result does not exclude EBV infection. An additional sample should be tested within 5-7 days if early infection is suspected. Positive: EBV IgM antibody detected. May be indicative of current or recent infection. Equivocal: Equivocal for antibodies to EBV. Repeat testing if still indicated. Performed By: #### E BV #### [place] [address] MISCon 11-20-2022 [facility] [place] Send Out See Comments Normal [facility] ([place]) Comment on above: Order Comment: Herpe svirus 6 IgG [id number] Result Comment: Comp lete reference lab report scanned to EMR. Performed By: #### A DIFF, CBC, ANEU, MORPH, DIFF #### [place] [address] Misc. Send Out See Comments [facility]) Comment on above: Order Comment: Herpe svirus 6 IgM [id number] Result Comment: Comp lete reference lab report scanned to EMR. Performed By: #### A DIFF, CBC, ANEU, MORPH, DIFF #### [place] [address] MISCon 11-18-2022 Misc. Send Out See Comments [facility] ([place]) Comment on above: Order Comment: Herpe svirus 7 IgG and IgM Antibodies [id number] (x2) Result Comment: Comp lete reference lab report scanned to EMR. Performed By: #### M ISC #### [place] [address] MISCon 11-12-2022 Misc. Send Out See Comments [facility] ([place]) Comment on above: Order Comment: BABPB - BABESIA ,MOLECULAR DETECTION Result Comment: Comp lete reference lab report scanned to EMR. Performed By: #### M ISC #### [place] [address] MISCon 11-11-2022 Misc. Send Out See Comments [facility]) Comment on above: Order Comment: Sridevi madison Henselae ABS [facility] [address] Result Comment: Comp lete reference lab report scanned to EMR. Performed By: #### M ISC #### [place] [address] CMVon 11-10-2022 CMV IgG Antibody Negative [facility]) Comment on above: Result Comment: INTE RPRETATION OF CMV IgG BY EIA: Negative: No significant level of CMV IgG antibodies detected. Positive: Significant level of CMV IgG antibodies Detected. Indicative of Current or Previous infection. Equivocal: Equivocal for CMV antibodies. Repeat testing in 14 days is suggested. Performed By: #### A DIFF, CBC, ANEU, MORPH, DIFF #### [address] [address] CMV IgM Antibody Negative Normal [facility] ([place]) Comment on above: Result Comment: INTE RPRETATION OF CMV IgM BY EIA: Negative: No significant level of CMV IgM antibodies detected. Positive: Significant level of CMV IgM antibodies Detected. May be indicative of current or recent infection. Equivocal: Equivocal for CMV antibodies. Repeat testing in 14 days is suggested. Performed By: #### A DIFF, CBC, ANEU, MORPH, DIFF #### [address] [address] LYMEWBon 11-10-2022 Lyme IgG Bands p-41 Normal [facility] ([place]) Comment on above: Result Comment: Perf ormed By: [facility] [employer] [address] [place] [address] Button Broacher: Gennaro Maravilla III, M.D. CLIA#: [id number] Performed By: #### A DIFF, CBC, ANEU, MORPH, DIFF #### [place] [id number] Lyme IgG Western Blot Negative Normal Negative [facility] ([place]) Comment on above: Result Comment: CDC criteria for a positive Western blot are the presence of >=5 bands for IgG. Performed By: [facility] [employer] [address] [place] [address] Button Broacher: Gennaro Maravilla III, M.D. CLIA#: [id number] Performed By: #### A DIFF, CBC, ANEU, MORPH, DIFF #### [address] [address] Lyme IgM Bands p-23 Normal [facility] ([place]) Comment on above: Result Comment: Perf ormed By: [facility] [employer] [address] [place] [address] Button Broacher: Gennaro Maravilla III, M.D. CLIA#: [id number] Performed By: #### A DIFF, CBC, ANEU, MORPH, DIFF #### [address] [address] Lyme IgM Western Blot Negative Normal Negative [facility] ([place]) Comment on above: Result Comment: CDC criteria for a positive Western Blot are the presence of >=2 bands for IgM. Performed By: [facility] [employer] [address] [place] [address] Button Broacher: Gennaro Maravilla III, M.D. CLIA#: [id number] Performed By: #### A DIFF, CBC, ANEU, MORPH, DIFF #### [place] [address] Lyme Interpretation See Below Normal [facility] ([place]) Comment on above: Result Comment: No e vidence of antibodies to Borrelia burgdorferi. Performed By: [facility] [employer] [address] [place] [address] Button Broacher: Gennaro Maravilla III, M.D. CLIA#: [id number] Performed By: #### A DIFF, CBC, ANEU, MORPH, DIFF #### [place] [address] MYCOon 11-10-2022 Mycoplasma IgG Positive [facility] ([place]) Comment on above: Result Comment: INTE RPRETATION OF MYCOPLASMA IgG BY EIA: Negative: No detectable M. pneumoniae IgG antibody. Positive: Mycoplasma pneumoniae IgG antibody Detected. Equivocal: Equivocal for IgG antibodies to Mycoplasma pneumoniae. Suggest repeat testing in 10-14 days. Performed By: #### A DIFF, CBC, ANEU, MORPH, DIFF #### [place] [address] EBVPNLon 11-09-2022 EBV Interpretation Past Infection. EBV panel interpretation is a general guide that is meant to capture most, but not all, of the possible clinical scenarios. Non-specific reactivities are not uncommon especially with equivocal results. Should the overall interpretation not be consistent with the clinical picture, please contact the medical data entry clerk of the test for assistance. Normal [facility] ([place]) Comment on above: Result Comment: Perf ormed By: [facility] [employer] [address] [place] [address] Button Broacher: Gennaro Maravilla III, M.D. CLIA#: [id number] Performed By: #### A DIFF, CBC, ANEU, MORPH, DIFF #### [place] [address] EBV NA Ab, Qual Positive Abnormal Negative [facility] ([place]) Comment on above: Result Comment: Perf ormed By: [facility] [employer] [address] [place] [address] Button Broacher: Gennaro Maravilla III, M.D. CLIA#: [id number] Performed By: #### A DIFF, CBC, ANEU, MORPH, DIFF #### [place] [address] EBV VCA IgG, Qual Positive Abnormal Negative [facility] ([place]) Comment on above: Result Comment: Perf ormed By: [place] [address] Button Broacher: Gennaro Maravilla III, M.D. CLIA#: [id number] Performed By: #### A DIFF, CBC, ANEU, MORPH, DIFF #### [place] [address] EBV VCA IgM, Qual Negative Normal Negative [facility] ([place]) Comment on above: Result Comment: Perf ormed By: [place] [address] Button Broacher: Gennaro Maravilla III, M.D. CLIA#: [id number] Performed By: #### A DIFF, CBC, ANEU, MORPH, DIFF #### [place] [address] LMERLYon 11-09-2022 Lyme IgG/IgM AB Negative Normal Negative [facility] ([place]) Comment on above: Result Comment: Rece nt infection with B. burgdorferi sensu lato cannot be excluded if the specimen collected within four weeks after the onset of signs and symptoms or within six weeks after a known tick exposure. Clinical and epidemiological correlation is required. Performed By: [facility] [employer] [address] [place] [address] Button Broacher: Gennaro Maravilla III, M.D. CLIA#: [id number] Performed By: #### A DIFF, CBC, ANEU, MORPH, DIFF #### [place] [address] CMVQNTon 11-07-2022 CMV DNA (copies/mL) Not detected Normal Not Detected A [facility] ([place]) Comment on above: Result Comment: Line ar Range is 34.5 IU/mL to 10,000,000 IU/mL Performed By: [facility] [employer] [address] [place] [address] Button Broacher: Gennaro Maravilla III, M.D. CLIA#: [id number] Performed By: #### A DIFF, CBC, ANEU, MORPH, DIFF #### [address] [address] MYCOon 11-07-2022 Mycoplasma IgM Negative Normal [facility] ([place]) Comment on above: Result Comment: INTE RPRETATION OF MYCOPLASMA IgM: Negative: IgM to M. pneumoniae Absent, or at levels below the assay limit of detection. Positive: IgM to M. pneumoniae Present. Invalid: Test results are invalid due to invalid internal control. Assay was performed in duplicate. Repeat testing is suggested if clinically indicated. Performed By: #### A DIFF, CBC, ANEU, MORPH, DIFF #### [address] [address] DNAon 11-04-2022 ds DNA Ab Neg 10 Normal Neg 10 [facility] ([place]) Comment on above: Result Comment: DNA Screen and Titer methodology is an immunofluorescent technique utilizing Crithidia luciliae Substrate. Performed By: #### A DIFF, CBC, ANEU, MORPH, DIFF #### [address] [address] .GFRon 11-03-2022 GFR Non- 65 ml/min/1.73sqm Normal [facility] ([place]) Comment on above: Result Comment: GFR Population mean for , Non- Americans Ages 20-29 = 116 mL/min/1.73 sq.m. Ages 30-39 = 107 mL/min/1.73 sq.m. Ages 40-49 = 99 mL/min/1.73 sq.m. Ages 50-59 = 93 mL/min/1.73 sq.m. Ages 60-69 = 85 mL/min/1.73 sq.m. Ages 70+ = 75 mL/min/1.73 sq.m. Chronic Kidney Disease: Less than 60 mL/min/1.73 square meters End Stage Renal Disease: Less than 15 mL/min/1.73 square meters Performed By: #### A DIFF, CBC, ANEU, MORPH, DIFF #### [address] [address] GFR 78 ml/min/1.73sqm Normal [facility] ([place]) Comment on above: Result Comment: GFR Population mean for , Non- Americans Ages 20-29 = 116 mL/min/1.73 sq.m. Ages 30-39 = 107 mL/min/1.73 sq.m. Ages 40-49 = 99 mL/min/1.73 sq.m. Ages 50-59 = 93 mL/min/1.73 sq.m. Ages 60-69 = 85 mL/min/1.73 sq.m. Ages 70+ = 75 mL/min/1.73 sq.m. Chronic Kidney Disease: Less than 60 mL/min/1.73 square meters End Stage Renal Disease: Less than 15 mL/min/1.73 square meters Performed By: #### A DIFF, CBC, ANEU, MORPH, DIFF #### [address] [address] .Manual Diffon 11-03-2022 Basophil %, Manual 1.0 % Normal 0.0-2.5 [facility] ([place]) Comment on above: Performed By: #### A DIFF, CBC, ANEU, MORPH, DIFF #### [address] [address] Basophil, Abs Manual 0.0 10 3/mcL Normal 0.0-0.2 [facility] ([place]) Comment on above: Performed By: #### A DIFF, CBC, ANEU, MORPH, DIFF #### [address] [address] Eosinophil %, Manual 3.0 % Normal 0.0-7.0 [facility] ([place]) Comment on above: Performed By: #### A DIFF, CBC, ANEU, MORPH, DIFF #### [address] [address] Eosinophil, Abs Manual 0.1 10 3/mcL Normal 0.0-0.4 [facility] ([place]) Comment on above: Performed By: #### A DIFF, CBC, ANEU, MORPH, DIFF #### [address] [address] Lymphocyte %, Manual 64.0 % High 10.0-50.0 [facility] ([place]) Comment on above: Performed By: #### A DIFF, CBC, ANEU, MORPH, DIFF #### [address] [address] Lymphocyte, Abs Manual 2.0 10 3/mcL Normal 0.8-3.9 [facility] ([place]) Comment on above: Performed By: #### A DIFF, CBC, ANEU, MORPH, DIFF #### [address] [address] Monocyte %, Manual 2.0 % Normal 1.7-13.0 [facility] ([place]) Comment on above: Performed By: #### A DIFF, CBC, ANEU, MORPH, DIFF #### [address] [address] Monocyte, Abs Manual 0.1 10 3/mcL Low 0.2-1.0 [facility] ([place]) Comment on above: Performed By: #### A DIFF, CBC, ANEU, MORPH, DIFF #### [address] [address] Neutrophil %, Manual 30.0 % Low 37.0-80.0 [facility] ([place]) Comment on above: Performed By: #### A DIFF, CBC, ANEU, MORPH, DIFF #### [address] [address] Neutrophil, Abs Manual 0.9 10 3/mcL Low 2.9-6.2 [facility] ([place]) Comment on above: Performed By: #### A DIFF, CBC, ANEU, MORPH, DIFF #### [address] [address] Nucleated RBC 0.0 /100 WBC Normal [facility] ([place]) Comment on above: Performed By: #### A DIFF, CBC, ANEU, MORPH, DIFF #### [address] [address] .Morphon 11-03-2022 Large Platelets Few Normal [facility] ([place]) Comment on above: Performed By: #### A DIFF, CBC, ANEU, MORPH, DIFF #### [address] [address] Platelet Estimate Normal Normal [facility] ([place]) Comment on above: Performed By: #### A DIFF, CBC, ANEU, MORPH, DIFF #### [address] [address] ASOon 11-03-2022 ASO 109.9 IU/mL Normal 25.0-250.0 [facility] ([place]) Comment on above: Result Comment: No te - New Reference Range in effect 19 Performed By: #### A DIFF, CBC, ANEU, MORPH, DIFF #### [address] [address] B12on 11-03-2022 Cobalamin (Vitamin B12) [Mass/Vol] 452 pg/mL Normal 211-911 [facility] ([place]) Comment on above: Performed By: #### A DIFF, CBC, ANEU, MORPH, DIFF #### [address] [address] CBCon 11-03-2022 Erythrocyte distribution width (RBC) [Ratio] 13.7 % Normal 11.5-14.5 [facility] ([place]) Comment on above: Performed By: #### A DIFF, CBC, ANEU, MORPH, DIFF #### [address] [address] Hematocrit (Bld) [Volume fraction] 41.3 % Normal 37.0-47.0 [facility] ([place]) Comment on above: Performed By: #### A DIFF, CBC, ANEU, MORPH, DIFF #### [address] [address] Hgb 14.0 G/dL Normal 12.0-16.0 [facility] ([place]) Comment on above: Performed By: #### A DIFF, CBC, ANEU, MORPH, DIFF #### [address] [address] MCH (RBC) [Entitic mass] 30.3 pg Normal 27.0-31.2 [facility] ([place]) Comment on above: Performed By: #### A DIFF, CBC, ANEU, MORPH, DIFF #### [place] [id number] MCHC 33.8 G/dL Normal 33.0-37.0 [facility] ([place]) Comment on above: Performed By: #### A DIFF, CBC, ANEU, MORPH, DIFF #### [place] [address] MCV (RBC) [Entitic vol] 89.4 fL Normal 80.0-94.0 [facility] ([place]) Comment on above: Performed By: #### A DIFF, CBC, ANEU, MORPH, DIFF #### [place] [address] Platelet 289 10 3/mcL Normal 130-400 [facility] ([place]) Comment on above: Performed By: #### A DIFF, CBC, ANEU, MORPH, DIFF #### [place] [address] Platelet mean volume (Bld) [Entitic vol] 7.3 fL Low 7.4-10.4 [facility] ([place]) Comment on above: Performed By: #### A DIFF, CBC, ANEU, MORPH, DIFF #### [place] [address] RBC 4.62 10 6/mcL Normal 4.20-5.40 [facility] ([place]) Comment on above: Performed By: #### A DIFF, CBC, ANEU, MORPH, DIFF #### [place] [id number] WBC 3.1 10 3/mcL Low 4.6-10.8 [facility] ([place]) Comment on above: Performed By: #### A DIFF, CBC, ANEU, MORPH, DIFF #### [place] [address] CMPon 11-03-2022 Albumin Level 3.8 G/dL Normal 3.5-5.0 [facility] ([place]) Comment on above: Performed By: #### A DIFF, CBC, ANEU, MORPH, DIFF #### [address] [address] Albumin/Globulin [Mass ratio] 1.2 {ratio} Normal 1.1-2.5 [facility] ([place]) Comment on above: Performed By: #### A DIFF, CBC, ANEU, MORPH, DIFF #### [address] [address] ALP [Catalytic activity/Vol] 78 U/L Normal 40-135 [facility] ([place]) Comment on above: Performed By: #### A DIFF, CBC, ANEU, MORPH, DIFF #### [address] [address] ALT [Catalytic activity/Vol] 25 U/L Normal 14-59 [facility] ([place]) Comment on above: Performed By: #### A DIFF, CBC, ANEU, MORPH, DIFF #### [address] [address] AST [Catalytic activity/Vol] 20 U/L Normal 10-40 [facility] ([place]) Comment on above: Performed By: #### A DIFF, CBC, ANEU, MORPH, DIFF #### [address] [address] Bili Total 0.6 mg/dL Normal 0.2-1.0 [facility] ([place]) Comment on above: Result Comment: Use of this assay is not recommended for patients undergoing treatment with eltrombopag due to the potential for falsely elevated results. Performed By: #### A DIFF, CBC, ANEU, MORPH, DIFF #### [address] [address] BUN/Creatinine Ratio 23 ratio Normal 7-27 [facility] ([place]) Comment on above: Performed By: #### A DIFF, CBC, ANEU, MORPH, DIFF #### [address] [address] Calcium [Mass/Vol] 9.1 mg/dL Normal 8.4-10.2 [facility] ([place]) Comment on above: Performed By: #### A DIFF, CBC, ANEU, MORPH, DIFF #### [address] [address] Chloride [Moles/Vol] 106 mmol/L Normal 98-107 [facility] ([place]) Comment on above: Performed By: #### A DIFF, CBC, ANEU, MORPH, DIFF #### [address] [address] CO2 [Moles/Vol] 31 mmol/L High 22-29 [facility] ([place]) Comment on above: Performed By: #### A DIFF, CBC, ANEU, MORPH, DIFF #### [address] [address] Creatinine [Mass/Vol] 0.90 mg/dL Normal 0.55-1.02 [facility] ([place]) Comment on above: Performed By: #### A DIFF, CBC, ANEU, MORPH, DIFF #### [address] [address] Electrolyte Balance 5.0 mEq/L Normal 4.0-15.0 [facility] ([place]) Comment on above: Performed By: #### A DIFF, CBC, ANEU, MORPH, DIFF #### [address] [address] Globulin 3.1 G/dL Normal [facility] ([place]) Comment on above: Performed By: #### A DIFF, CBC, ANEU, MORPH, DIFF #### [address] [address] Glucose [Mass/Vol] 99 mg/dL Normal 70-105 [facility] ([place]) Comment on above: Performed By: #### A DIFF, CBC, ANEU, MORPH, DIFF #### [address] [address] [address] Potassium [Moles/Vol] 4.5 mmol/L Normal 3.5-5.1 [facility] ([place]) Comment on above: Performed By: #### A DIFF, CBC, ANEU, MORPH, DIFF #### [address] [address] Sodium [Moles/Vol] 142 mmol/L Normal 136-145 [facility] ([place]) Comment on above: Performed By: #### A DIFF, CBC, ANEU, MORPH, DIFF #### [address] [address] Total Protein 6.9 G/dL Normal 6.4-8.2 [facility] ([place]) Comment on above: Performed By: #### A DIFF, CBC, ANEU, MORPH, DIFF #### [address] [address] Urea nitrogen [Mass/Vol] 21 mg/dL High 7-18 [facility] ([place]) Comment on above: Performed By: #### A DIFF, CBC, ANEU, MORPH, DIFF #### [address] [address] Jere 11-03-2022 Ferritin [Mass/Vol] 41.0 ng/mL Normal 8.0-252.0 [facility] ([place]) Comment on above: Performed By: #### A DIFF, CBC, ANEU, MORPH, DIFF #### [address] [address] FOLon 11-03-2022 Folate 23.34 ng/mL Normal 5.38-24.00 [facility] ([place]) Comment on above: Performed By: #### A DIFF, CBC, ANEU, MORPH, DIFF #### [address] [address] LABORATORYOrdered By: SYSTEM SYSTEM on 11-03-2022 Albumin BCP dye [Mass/Vol] 3.8 G/dL Invalid Interpretation Code 3.5 - 5.0 G/dL AO ADM SS Albumin/Globulin [Mass ratio] 1.2 {ratio} Invalid Interpretation Code 1.1 - 2.5 ratio AO ADM SS ALP [Catalytic activity/Vol] 78 U/L Invalid Interpretation Code 40 - 135 U/L AO ADM SS ALT With P-5'-P [Catalytic activity/Vol] 25 U/L Invalid Interpretation Code 14 - 59 U/L AO ADM SS AST With P-5'-P [Catalytic activity/Vol] 20 U/L Invalid Interpretation Code 10 - 40 U/L AO ADM SS Bilirubin [Mass/Vol] 0.6 mg/dL Invalid Interpretation Code 0.2 - 1.0 mg/dL AO ADM SS Calcium [Mass/Vol] 9.1 mg/dL Invalid Interpretation Code 8.4 - 10.2 mg/dL AO ADM SS Chloride [Moles/Vol] 106 mmol/L Invalid Interpretation Code 98 - 107 mmol/L AO ADM SS CO2 [Moles/Vol] 31 mmol/L Invalid Interpretation Code 22 - 29 mmol/L AO ADM SS Cobalamin (Vitamin B12) [Mass/Vol] 452 pg/mL Invalid Interpretation Code 211 - 911 pg/mL AH ADM SS Creatinine [Mass/Vol] 0.90 mg/dL Invalid Interpretation Code 0.55 - 1.02 mg/dL AO ADM SS Electrolyte Balance 5.0 mEq/L Invalid Interpretation Code 4.0 - 15.0 mEq/L AO ADM SS Ferritin [Mass/Vol] 41.0 ng/mL Invalid Interpretation Code 8.0 - 252.0 ng/mL AO ADM SS Folate [Mass/Vol] 23.34 ng/mL Invalid Interpretation Code 5.38 - 24.00 ng/mL AH ADM SS GFR/1.73 sq M.predicted among blacks MDRD (S/P/Bld) [Vol rate/Area] 78 ml/min/1.73sqm Invalid Interpretation Code AO Chemistry S GFR/1.73 sq M.predicted among non-blacks MDRD (S/P/Bld) [Vol rate/Area] 65 ml/min/1.73sqm Invalid Interpretation Code AO Chemistry S Globulin 3.1 G/dL Invalid Interpretation Code AO ADM SS Glucose [Mass/Vol] 99 mg/dL Invalid Interpretation Code 70 - 105 mg/dL AO ADM SS Potassium [Moles/Vol] 4.5 mmol/L Invalid Interpretation Code 3.5 - 5.1 mmol/L AO ADM SS Protein [Mass/Vol] 6.9 G/dL Invalid Interpretation Code 6.4 - 8.2 G/dL AO ADM SS Sodium [Moles/Vol] 142 mmol/L Invalid Interpretation Code 136 - 145 mmol/L AO ADM SS Streptolysin O Ab Qn 109.9 Int unit/mL Invalid Interpretation Code 25.0 - 250.0 Int unit/mL AH ADM SS Urea nitrogen [Mass/Vol] 21 mg/dL Invalid Interpretation Code 7 - 18 mg/dL AO ADM SS Urea nitrogen/Creatinine [Mass ratio] 23 ratio Invalid Interpretation Code 7 - 27 ratio AO ADM SS LABORATORYOrdered By: Irma Silva on 11-03-2022 Basophil %, Manual 1.0 1 Invalid Interpretation Code 0.0 - 2.5 % AO Workflow SS Basophil, Abs Manual 0.0 103/mcL Invalid Interpretation Code 0.0 - 0.2 10^3/mcL AO Workflow SS Eosinophil %, Manual 3.0 1 Invalid Interpretation Code 0.0 - 7.0 % AO Workflow SS Eosinophils (Bld) [#/Vol] 0.1 103/mcL Invalid Interpretation Code 0.0 - 0.4 10^3/mcL AO Workflow SS Erythrocyte distribution width (RBC) [Ratio] 13.7 % Invalid Interpretation Code 11.5 - 14.5 % AO Workflow SS Hematocrit (Bld) [Volume fraction] 41.3 % Invalid Interpretation Code 37.0 - 47.0 % AO Workflow SS Hemoglobin (Bld) [Mass/Vol] 14.0 G/dL Invalid Interpretation Code 12.0 - 16.0 G/dL AO Workflow SS Large Platelets Few *NA* (11/03/22 7:14 AM) Invalid Interpretation Code AO Workflow SS Lymphocyte %, Manual 64.0 1 Invalid Interpretation Code 10.0 - 50.0 % AO Workflow SS Lymphocyte, Abs Manual 2.0 103/mcL Invalid Interpretation Code 0.8 - 3.9 10^3/mcL AO Workflow SS MCH (RBC) [Entitic mass] 30.3 pg Invalid Interpretation Code 27.0 - 31.2 pg AO Workflow SS MCHC 33.8 G/dL Invalid Interpretation Code 33.0 - 37.0 G/dL AO Workflow SS MCV (RBC) [Entitic vol] 89.4 fL Invalid Interpretation Code 80.0 - 94.0 fL AO Workflow SS Monocyte %, Manual 2.0 1 Invalid Interpretation Code 1.7 - 13.0 % AO Workflow SS Monocyte, Abs Manual 0.1 103/mcL Invalid Interpretation Code 0.2 - 1.0 10^3/mcL AO Workflow SS Neutrophil %, Manual 30.0 1 Invalid Interpretation Code 37.0 - 80.0 % AO Workflow SS Neutrophil, Abs Manual 0.9 103/mcL Invalid Interpretation Code 2.9 - 6.2 10^3/mcL AO Workflow SS Nucleated RBC 0.0 /100 WBC Invalid Interpretation Code AO Workflow SS Platelet Estimate Normal *NA* (11/03/22 7:14 AM) Invalid Interpretation Code AO Workflow SS Platelet mean volume (Bld) [Entitic vol] 7.3 fL Invalid Interpretation Code 7.4 - 10.4 fL AO Workflow SS Platelets (Bld) [#/Vol] 289 103/mcL Invalid Interpretation Code 130 - 400 10^3/mcL AO Workflow SS RBC (Bld) [#/Vol] 4.62 106/mcL Invalid Interpretation Code 4.20 - 5.40 10^6/mcL AO Workflow SS WBC (Bld) [#/Vol] 3.1 103/mcL Invalid Interpretation Code 4.6 - 10.8 10^3/mcL AO Workflow SS .Manual Diffon 10-29-2022 Basophil %, Manual 0.0 % Normal 0.0-2.5 [facility] ([place]) Comment on above: Performed By: #### A DIFF, CBC, ANEU, MORPH, DIFF #### [address] [address] Basophil, Abs Manual 0.0 10 3/mcL Normal 0.0-0.2 [facility] ([place]) Comment on above: Performed By: #### A DIFF, CBC, ANEU, MORPH, DIFF #### [address] [address] Eosinophil %, Manual 0.0 % Normal 0.0-7.0 [facility] ([place]) Comment on above: Performed By: #### A DIFF, CBC, ANEU, MORPH, DIFF #### [address] [address] Eosinophil, Abs Manual 0.0 10 3/mcL Normal 0.0-0.4 [facility] ([place]) Comment on above: Performed By: #### A DIFF, CBC, ANEU, MORPH, DIFF #### [address] [address] Lymphocyte %, Manual 40.0 % Normal 10.0-50.0 [facility] ([place]) Comment on above: Performed By: #### A DIFF, CBC, ANEU, MORPH, DIFF #### [address] [address] Lymphocyte, Abs Manual 1.8 10 3/mcL Normal 0.8-3.9 [facility] ([place]) Comment on above: Performed By: #### A DIFF, CBC, ANEU, MORPH, DIFF #### [address] [address] Monocyte %, Manual 1.0 % Low 1.7-13.0 [facility] ([place]) Comment on above: Performed By: #### A DIFF, CBC, ANEU, MORPH, DIFF #### [address] [address] Monocyte, Abs Manual 0.0 10 3/mcL Low 0.2-1.0 [facility] ([place]) Comment on above: Performed By: #### A DIFF, CBC, ANEU, MORPH, DIFF #### [address] [address] Neutrophil %, Manual 59.0 % Normal 37.0-80.0 [facility] ([place]) Comment on above: Performed By: #### A DIFF, CBC, ANEU, MORPH, DIFF #### [address] [address] Neutrophil, Abs Manual 2.6 10 3/mcL Low 2.9-6.2 [facility] ([place]) Comment on above: Performed By: #### A DIFF, CBC, ANEU, MORPH, DIFF #### [address] [address] Nucleated RBC 0.0 /100 WBC Normal [facility] ([place]) Comment on above: Performed By: #### A DIFF, CBC, ANEU, MORPH, DIFF #### [address] [address] .Morphon 10-29-2022 Platelet Estimate Normal Normal [facility] ([place]) Comment on above: Performed By: #### A DIFF, CBC, ANEU, MORPH, DIFF #### [address] [address] CBCon 10-29-2022 Erythrocyte distribution width (RBC) [Ratio] 13.8 % Normal 11.5-14.5 [facility] ([place]) Comment on above: Performed By: #### M ORPH, DIFF, CBC #### [address] [address] Hematocrit (Bld) [Volume fraction] 41.3 % Normal 37.0-47.0 [facility] ([place]) Comment on above: Performed By: #### M ORPH, DIFF, CBC #### [address] [address] Hgb 13.9 G/dL Normal 12.0-16.0 [facility] ([place]) Comment on above: Performed By: #### M ORPH, DIFF, CBC #### [address] [address] MCH (RBC) [Entitic mass] 30.1 pg Normal 27.0-31.2 [facility] ([place]) Comment on above: Performed By: #### M ORPH, DIFF, CBC #### [address] [address] MCHC 33.8 G/dL Normal 33.0-37.0 [facility] ([place]) Comment on above: Performed By: #### M ORPH, DIFF, CBC #### [address] [address] MCV (RBC) [Entitic vol] 89.3 fL Normal 80.0-94.0 [facility] ([place]) Comment on above: Performed By: #### M ORPH, DIFF, CBC #### [address] [address] Platelet 299 10 3/mcL Normal 130-400 [facility] ([place]) Comment on above: Performed By: #### M ORPH, DIFF, CBC #### [address] [address] Platelet mean volume (Bld) [Entitic vol] 7.4 fL Normal 7.4-10.4 [facility] ([place]) Comment on above: Performed By: #### M ORPH, DIFF, CBC #### [address] [place], [place] [address] RBC 4.62 10 6/mcL Normal 4.20-5.40 [facility] ([place]) Comment on above: Performed By: #### M ORPH, DIFF, CBC #### [facility] [address] [place], [place] [address] WBC 4.4 10 3/mcL Low 4.6-10.8 [facility] ([place]) Comment on above: Performed By: #### M ORPH, DIFF, CBC #### [facility] [address] [place], [place] [address] LABORATORYOrdered By: Nica Celestin on 10-29-2022 Basophil %, Manual 0.0 1 Invalid Interpretation Code 0.0 - 2.5 % AO Workflow SS Basophil, Abs Manual 0.0 103/mcL Invalid Interpretation Code 0.0 - 0.2 10^3/mcL AO Workflow SS Eosinophil %, Manual 0.0 1 Invalid Interpretation Code 0.0 - 7.0 % AO Workflow SS Eosinophils (Bld) [#/Vol] 0.0 103/mcL Invalid Interpretation Code 0.0 - 0.4 10^3/mcL AO Workflow SS Erythrocyte distribution width (RBC) [Ratio] 13.8 % Invalid Interpretation Code 11.5 - 14.5 % AO Hematology S Hematocrit (Bld) [Volume fraction] 41.3 % Invalid Interpretation Code 37.0 - 47.0 % AO Hematology S Hemoglobin (Bld) [Mass/Vol] 13.9 G/dL Invalid Interpretation Code 12.0 - 16.0 G/dL AO Hematology S Lymphocyte %, Manual 40.0 1 Invalid Interpretation Code 10.0 - 50.0 % AO Workflow SS Lymphocyte, Abs Manual 1.8 103/mcL Invalid Interpretation Code 0.8 - 3.9 10^3/mcL AO Workflow SS MCH (RBC) [Entitic mass] 30.1 pg Invalid Interpretation Code 27.0 - 31.2 pg AO Hematology S MCHC 33.8 G/dL Invalid Interpretation Code 33.0 - 37.0 G/dL AO Hematology S MCV (RBC) [Entitic vol] 89.3 fL Invalid Interpretation Code 80.0 - 94.0 fL AO Hematology S Monocyte %, Manual 1.0 1 Invalid Interpretation Code 1.7 - 13.0 % AO Workflow SS Monocyte, Abs Manual 0.0 103/mcL Invalid Interpretation Code 0.2 - 1.0 10^3/mcL AO Workflow SS Neutrophil %, Manual 59.0 1 Invalid Interpretation Code 37.0 - 80.0 % AO Workflow SS Neutrophil, Abs Manual 2.6 103/mcL Invalid Interpretation Code 2.9 - 6.2 10^3/mcL AO Workflow SS Nucleated RBC 0.0 /100 WBC Invalid Interpretation Code AO Workflow SS Platelet Estimate Normal (10/29/22 9:07 AM) Invalid Interpretation Code AO Hematology S Platelet mean volume (Bld) [Entitic vol] 7.4 fL Invalid Interpretation Code 7.4 - 10.4 fL AO Hematology S Platelets (Bld) [#/Vol] 299 103/mcL Invalid Interpretation Code 130 - 400 10^3/mcL AO Hematology S RBC (Bld) [#/Vol] 4.62 106/mcL Invalid Interpretation Code 4.20 - 5.40 10^6/mcL AO Hematology S WBC (Bld) [#/Vol] 4.4 103/mcL Invalid Interpretation Code 4.6 - 10.8 10^3/mcL AO Hematology S US SOFT TISSUE MASS OF HEAD OR NECKon 10-21-2022 US SOFT TISSUE MASS OF HEAD OR NECK ORIGINAL EXAMINATION: ULTRASOUND OF THE SOFT TISSUES OF THE HEAD AND NECK 10/20/2022 3:20 pm COMPARISON: 09/02/2022. HISTORY: ORDERING SYSTEM PROVIDED HISTORY: Reason for Exam: follow up of midline mass FINDINGS: There is a 2.1 x 2.1 x 0.9 cm (previously 2.4 x 2 x 1.1 cm) predominantly anechoic cystic like structure with thin internal septation midline neck just superior to the thyroid. This continues to be within the muscle belly. No flow on Doppler interrogation. IMPRESSION: Essentially stable cystic like lesion in the midline neck. The location and sonographic appearance are most favorable for a thyroglossal remnant/cyst. A hematoma is much less likely. Nuclear medicine thyroid scanning can be considered for further evaluation. I have personally reviewed the images of this examination, agree with resident's findings and interpretation. Interpreted by: Eddie Hidalgo MD Preliminary Report By: Ken Roberts Electronically signed By Eddie Hidalgo MD Dictated Date: 10/21/2022 2:11:59 PM Prelim Date: 10/21/2022 4:53:17 PM Sign Date: 10/21/2022 4:53:17 PM Ordering Provider: JHOANA Hutchins [facility] ([place]) .Auto Diffon 09-02-2022 Basophil, Absolute 0.0 10 3/mcL Normal 0.0-0.2 [facility] ([place]) Comment on above: Performed By: #### A DIFF, CBC, ANEU, MORPH, DIFF #### [address] [address] Basophils/100 WBC (Bld) 0.7 % Normal 0.0-2.5 [facility] ([place]) Comment on above: Performed By: #### A DIFF, CBC, ANEU, MORPH, DIFF #### [address] [address] Eosinophil, Absolute 0.1 10 3/mcL Normal 0.0-0.4 [facility] ([place]) Comment on above: Performed By: #### A DIFF, CBC, ANEU, MORPH, DIFF #### [address] [address] Eosinophils/100 WBC (Bld) 1.6 % Normal 0.0-7.0 [facility] ([place]) Comment on above: Performed By: #### A DIFF, CBC, ANEU, MORPH, DIFF #### [address] [address] Lymphocyte, Absolute 1.7 10 3/mcL Normal 0.8-3.9 [facility] ([place]) Comment on above: Performed By: #### A DIFF, CBC, ANEU, MORPH, DIFF #### [address] [address] Lymphocytes/100 WBC (Bld) 39.0 % Normal 10.0-50.0 [facility] ([place]) Comment on above: Performed By: #### A DIFF, CBC, ANEU, MORPH, DIFF #### [address] [address] Monocyte, Absolute 0.3 10 3/mcL Normal 0.2-1.0 [facility] ([place]) Comment on above: Performed By: #### A DIFF, CBC, ANEU, MORPH, DIFF #### [address] [address] Monocytes/100 WBC (Bld) 6.1 % Normal 1.7-13.0 [facility] ([place]) Comment on above: Performed By: #### A DIFF, CBC, ANEU, MORPH, DIFF #### [address] [address] Neutrophils/100 WBC (Bld) 52.6 % Normal 37.0-80.0 [facility] ([place]) Comment on above: Performed By: #### A DIFF, CBC, ANEU, MORPH, DIFF #### [address] [address] .Manual Diffon 09-02-2022 Atypical Lymphs 0.0 % Normal 0.0-5.0 [facility] ([place]) Comment on above: Performed By: #### A DIFF, CBC, ANEU, MORPH, DIFF #### [address] [address] Bands 1.0 % Normal 0.0-5.0 [facility] ([place]) Comment on above: Performed By: #### A DIFF, CBC, ANEU, MORPH, DIFF #### [address] [address] Basophil %, Manual 0.0 % Normal 0.0-2.5 [facility] ([place]) Comment on above: Performed By: #### A DIFF, CBC, ANEU, MORPH, DIFF #### [address] [address] Eosinophil %, Manual 0.0 % Normal 0.0-7.0 [facility] ([place]) Comment on above: Performed By: #### A DIFF, CBC, ANEU, MORPH, DIFF #### [address] [address] Lymphocyte %, Manual 43.0 % Normal 10.0-50.0 [facility] ([place]) Comment on above: Performed By: #### A DIFF, CBC, ANEU, MORPH, DIFF #### [address] [address] Monocyte %, Manual 4.0 % Normal 1.7-13.0 [facility] ([place]) Comment on above: Performed By: #### A DIFF, CBC, ANEU, MORPH, DIFF #### [address] [address] Neutrophil %, Manual 52.0 % Normal 37.0-80.0 [facility] ([place]) Comment on above: Performed By: #### A DIFF, CBC, ANEU, MORPH, DIFF #### [place] [address] .Morphon 09-02-2022 Platelet Estimate Normal Normal [facility] ([place]) Comment on above: Performed By: #### A DIFF, CBC, ANEU, MORPH, DIFF #### [place] [address] RBC morphology finding Nom (Bld) Normal Normal [facility] ([place]) Comment on above: Performed By: #### A DIFF, CBC, ANEU, MORPH, DIFF #### [address] [address] .NEUABSon 09-02-2022 Neutrophil, Absolute 2.4 10 3/mcL Low 2.9-6.2 [facility] ([place]) Comment on above: Performed By: #### A DIFF, CBC, ANEU, MORPH, DIFF #### [place] [address] CBCon 09-02-2022 Erythrocyte distribution width (RBC) [Ratio] 13.8 % Normal 11.5-14.5 [facility] ([place]) Comment on above: Order Comment: WITH MANUAL DIFFERENTIAL Performed By: #### A DIFF, CBC, ANEU, MORPH, DIFF #### [place] [address] Hematocrit (Bld) [Volume fraction] 40.6 % Normal 37.0-47.0 [facility] ([place]) Comment on above: Order Comment: WITH MANUAL DIFFERENTIAL Performed By: #### A DIFF, CBC, ANEU, MORPH, DIFF #### [place] [address] Hgb 13.9 G/dL Normal 12.0-16.0 [facility] ([place]) Comment on above: Order Comment: WITH MANUAL DIFFERENTIAL Performed By: #### A DIFF, CBC, ANEU, MORPH, DIFF #### [address] [address] MCH (RBC) [Entitic mass] 30.5 pg Normal 27.0-31.2 [facility] ([place]) Comment on above: Order Comment: WITH MANUAL DIFFERENTIAL Performed By: #### A DIFF, CBC, ANEU, MORPH, DIFF #### [address] [address] MCHC 34.2 G/dL Normal 33.0-37.0 [facility] ([place]) Comment on above: Order Comment: WITH MANUAL DIFFERENTIAL Performed By: #### A DIFF, CBC, ANEU, MORPH, DIFF #### [address] [address] MCV (RBC) [Entitic vol] 89.3 fL Normal 80.0-94.0 [facility] ([place]) Comment on above: Order Comment: WITH MANUAL DIFFERENTIAL Performed By: #### A DIFF, CBC, ANEU, MORPH, DIFF #### [address] [address] Platelet 311 10 3/mcL Normal 130-400 [facility] ([place]) Comment on above: Order Comment: WITH MANUAL DIFFERENTIAL Performed By: #### A DIFF, CBC, ANEU, MORPH, DIFF #### [address] [address] Platelet mean volume (Bld) [Entitic vol] 7.1 fL Low 7.4-10.4 [facility] ([place]) Comment on above: Order Comment: WITH MANUAL DIFFERENTIAL Performed By: #### A DIFF, CBC, ANEU, MORPH, DIFF #### [address] [address] RBC 4.55 10 6/mcL Normal 4.20-5.40 [facility] ([place]) Comment on above: Order Comment: WITH MANUAL DIFFERENTIAL Performed By: #### A DIFF, CBC, ANEU, MORPH, DIFF #### [address] [place], [place] [address] WBC 4.5 10 3/mcL Low 4.6-10.8 [facility] ([place]) Comment on above: Order Comment: WITH MANUAL DIFFERENTIAL Performed By: #### A DIFF, CBC, ANEU, MORPH, DIFF #### [place] [address] [place], [place] [address] LABORATORYOrdered By: Placido Brarow on 09-02-2022 Bands 1.0 1 Invalid Interpretation Code 0.0 - 5.0 % AO Hematology S Basophil %, Manual 0.0 1 Invalid Interpretation Code 0.0 - 2.5 % AO Hematology S Basophil, Absolute 0.0 103/mcL Invalid Interpretation Code 0.0 - 0.2 10^3/mcL AO Workflow SS Basophils/100 WBC (Bld) 0.7 % Invalid Interpretation Code 0.0 - 2.5 % AO Workflow SS Eosinophil %, Manual 0.0 1 Invalid Interpretation Code 0.0 - 7.0 % AO Hematology S Eosinophil, Absolute 0.1 103/mcL Invalid Interpretation Code 0.0 - 0.4 10^3/mcL AO Workflow SS Eosinophils/100 WBC (Bld) 1.6 % Invalid Interpretation Code 0.0 - 7.0 % AO Workflow SS Erythrocyte distribution width (RBC) [Ratio] 13.8 % Invalid Interpretation Code 11.5 - 14.5 % AO Workflow SS Hematocrit (Bld) [Volume fraction] 40.6 % Invalid Interpretation Code 37.0 - 47.0 % AO Workflow SS Hemoglobin (Bld) [Mass/Vol] 13.9 G/dL Invalid Interpretation Code 12.0 - 16.0 G/dL AO Workflow SS Lymphocyte %, Manual 43.0 1 Invalid Interpretation Code 10.0 - 50.0 % AO Hematology S Lymphocyte, Absolute 1.7 103/mcL Invalid Interpretation Code 0.8 - 3.9 10^3/mcL AO Workflow SS Lymphocytes/100 WBC (Bld) 39.0 % Invalid Interpretation Code 10.0 - 50.0 % AO Workflow SS MCH (RBC) [Entitic mass] 30.5 pg Invalid Interpretation Code 27.0 - 31.2 pg AO Workflow SS MCHC 34.2 G/dL Invalid Interpretation Code 33.0 - 37.0 G/dL AO Workflow SS MCV (RBC) [Entitic vol] 89.3 fL Invalid Interpretation Code 80.0 - 94.0 fL AO Workflow SS Monocyte %, Manual 4.0 1 Invalid Interpretation Code 1.7 - 13.0 % AO Hematology S Monocyte, Absolute 0.3 103/mcL Invalid Interpretation Code 0.2 - 1.0 10^3/mcL AO Workflow SS Monocytes/100 WBC (Bld) 6.1 % Invalid Interpretation Code 1.7 - 13.0 % AO Workflow SS Neutrophil %, Manual 52.0 1 Invalid Interpretation Code 37.0 - 80.0 % AO Hematology S Neutrophil, Absolute 2.4 103/mcL Invalid Interpretation Code 2.9 - 6.2 10^3/mcL AO Workflow SS Neutrophils/100 WBC (Bld) 52.6 % Invalid Interpretation Code 37.0 - 80.0 % AO Workflow SS Platelet Estimate Normal (09/02/22 9:54 AM) Invalid Interpretation Code AO Hematology S Platelet mean volume (Bld) [Entitic vol] 7.1 fL Invalid Interpretation Code 7.4 - 10.4 fL AO Workflow SS Platelets (Bld) [#/Vol] 311 103/mcL Invalid Interpretation Code 130 - 400 10^3/mcL AO Workflow SS RBC (Bld) [#/Vol] 4.55 106/mcL Invalid Interpretation Code 4.20 - 5.40 10^6/mcL AO Workflow SS RBC morphology finding Nom (Bld) Normal (09/02/22 9:54 AM) Invalid Interpretation Code AO Hematology S Variant lymphocytes/100 WBC (Bld) 0.0 % Invalid Interpretation Code 0.0 - 5.0 % AO Hematology S WBC (Bld) [#/Vol] 4.5 103/mcL Invalid Interpretation Code 4.6 - 10.8 10^3/mcL AO Workflow SS US SOFT TISSUE MASS OF HEAD OR NECKon 09-02-2022 US SOFT TISSUE MASS OF HEAD OR NECK ORIGINAL EXAMINATION: ULTRASOUND OF THE SOFT TISSUES OF THE HEAD AND NECK09/02/2022 10:20 am COMPARISON: None HISTORY: ORDERING SYSTEM PROVIDED HISTORY: Reason for Exam: midline neck movable large mass or cyst. Noticed after lifting a bar bed 2 weeks ago. FINDINGS: A 2.4 x 2.0 x 1.1 cm centrally near-anechoic and peripherally mixed echogenic structure is present in the midline of the neck between the thyroid and mandible. There are few internal echoes centrally. There is some peripheral vascularity with no internal blood flow. This is approximately 0.4 cm deep to the skin surface and appears to be located within the musculature. IMPRESSION: A 2.4 cm mixed echogenic structure that is centrally cystic at the area of concern could represent an intramuscular hematoma. Other etiologies such as a branchial cleft cyst or thyroglossal duct cyst are considered. A 6-12 week ultrasound follow-up is recommended to assess stability/resolution. I have personally reviewed the images of this examination and agree with the resident's findings and interpretation. Interpreted by: Ramy Roach MD Preliminary Report By: Aime Quinonez Electronically signed By Ramy Roach MD Dictated Date: 09/02/2022 2:18:06 PM Prelim Date: 09/02/2022 2:43:28 PM Sign Date: 09/02/2022 2:43:28 PM Ordering Provider: LUIS Hutchins [facility] ([place]) .GFRon 05-23-2022 GFR 74 ml/min/1.73sqm [facility] ([place]) Comment on above: Result Comment: GFR Population mean for , Non- Americans Ages 20-29 = 116 mL/min/1.73 sq.m. Ages 30-39 = 107 mL/min/1.73 sq.m. Ages 40-49 = 99 mL/min/1.73 sq.m. Ages 50-59 = 93 mL/min/1.73 sq.m. Ages 60-69 = 85 mL/min/1.73 sq.m. Ages 70+ = 75 mL/min/1.73 sq.m. Chronic Kidney Disease: Less than 60 mL/min/1.73 square meters End Stage Renal Disease: Less than 15 mL/min/1.73 square meters Performed By: #### A DIFF, CBC, ANEU, MORPH, DIFF #### [address] [address] GFR Non- 61 ml/min/1.73sqm Normal [facility] ([place]) Comment on above: Result Comment: GFR Population mean for , Non- Americans Ages 20-29 = 116 mL/min/1.73 sq.m. Ages 30-39 = 107 mL/min/1.73 sq.m. Ages 40-49 = 99 mL/min/1.73 sq.m. Ages 50-59 = 93 mL/min/1.73 sq.m. Ages 60-69 = 85 mL/min/1.73 sq.m. Ages 70+ = 75 mL/min/1.73 sq.m. Chronic Kidney Disease: Less than 60 mL/min/1.73 square meters End Stage Renal Disease: Less than 15 mL/min/1.73 square meters Performed By: #### A DIFF, CBC, ANEU, MORPH, DIFF #### [place] [address] .Manual Diffon 05-23-2022 Atypical Lymphs 15.0 % High 0.0-5.0 [facility] ([place]) Comment on above: Performed By: #### M ISC #### [place] [address] Basophil %, Manual 1.0 % Normal 0.0-2.5 [facility] ([place]) Comment on above: Performed By: #### M ISC #### [address] [address] Basophil, Abs Manual 0.0 10 3/mcL Normal 0.0-0.2 [facility] [facility] ([place]) Comment on above: Performed By: #### M ISC #### [address] [address] Eosinophil %, Manual 2.0 % Normal 0.0-7.0 [facility] ([place]) Comment on above: Performed By: #### M ISC #### [address] [address] Eosinophil, Abs Manual 0.1 10 3/mcL Normal 0.0-0.4 [facility] ([place]) Comment on above: Performed By: #### M ISC #### [place] [address] Lymphocyte %, Manual 47.0 % Normal 10.0-50.0 [facility] ([place]) Comment on above: Performed By: #### M ISC #### [place] [address] Lymphocyte, Abs Manual 1.4 10 3/mcL Normal 0.8-3.9 [facility] ([place]) Comment on above: Performed By: #### M ISC #### [address] [address] Monocyte %, Manual 3.0 % Normal 1.7-13.0 [facility] ([place]) Comment on above: Performed By: #### M ISC #### [address] [address] Monocyte, Abs Manual 0.1 10 3/mcL Low 0.2-1.0 [facility] ([place]) Comment on above: Performed By: #### M ISC #### [address] [address] Neutrophil %, Manual 32.0 % Low 37.0-80.0 [facility] ([place]) Comment on above: Performed By: #### M ISC #### [address] [address] Neutrophil, Abs Manual 1.0 10 3/mcL Low 2.9-6.2 [facility] ([place]) Comment on above: Performed By: #### M ISC #### [address] [address] Nucleated RBC 0.0 /100 WBC Normal [facility] ([place]) Comment on above: Performed By: #### M ISC #### [address] [address] .Morphon 05-23-2022 Ovalocytes 1+ Normal [facility] ([place]) Comment on above: Performed By: #### M ISC #### [address] [address] Platelet Estimate Normal Normal [facility] ([place]) Comment on above: Performed By: #### M ISC #### [address] [address] A1Con 05-23-2022 HbA1c (Bld) [Mass fraction] 5.2 % Normal 4.3-6.4 [facility] ([place]) Comment on above: Performed By: #### A DIFF, CBC, ANEU, MORPH, DIFF #### [address] [address] B12on 05-23-2022 Cobalamin (Vitamin B12) [Mass/Vol] 629 pg/mL Normal 211-911 [facility] ([place]) Comment on above: Performed By: #### M ISC #### [address] [address] CBCon 05-23-2022 Erythrocyte distribution width (RBC) [Ratio] 13.9 % Normal 11.5-14.5 [facility] ([place]) Comment on above: Performed By: #### M ISC #### [address] [address] Hematocrit (Bld) [Volume fraction] 40.2 % Normal 37.0-47.0 [facility] ([place]) Comment on above: Performed By: #### M ISC #### [address] [address] Hgb 13.6 G/dL Normal 12.0-16.0 [facility] ([place]) Comment on above: Performed By: #### M ISC #### [address] [address] MCH (RBC) [Entitic mass] 30.1 pg Normal 27.0-31.2 [facility] ([place]) Comment on above: Performed By: #### M ISC #### [address] [address] MCHC 33.9 G/dL Normal 33.0-37.0 [facility] ([place]) Comment on above: Performed By: #### M ISC #### [address] [address] MCV (RBC) [Entitic vol] 88.7 fL Normal 80.0-94.0 [facility] ([place]) Comment on above: Performed By: #### M ISC #### [address] [address] Platelet 291 10 3/mcL Normal 130-400 [facility] ([place]) Comment on above: Performed By: #### M ISC #### [address] [address] Platelet mean volume (Bld) [Entitic vol] 7.0 fL Low 7.4-10.4 [facility] ([place]) Comment on above: Performed By: #### M ISC #### [address] [address] RBC 4.53 10 6/mcL Normal 4.20-5.40 [facility] ([place]) Comment on above: Performed By: #### M ISC #### [address] [address] WBC 3.1 10 3/mcL Low 4.6-10.8 [facility] ([place]) Comment on above: Performed By: #### M ISC #### [address] [address] CMPon 05-23-2022 Albumin Level 3.7 G/dL Normal 3.5-5.0 [facility] ([place]) Comment on above: Performed By: #### A DIFF, CBC, ANEU, MORPH, DIFF #### [address] [address] Albumin/Globulin [Mass ratio] 1.1 {ratio} Normal 1.1-2.5 [facility] ([place]) Comment on above: Performed By: #### A DIFF, CBC, ANEU, MORPH, DIFF #### [address] [address] ALP [Catalytic activity/Vol] 76 U/L Normal 40-135 [facility] ([place]) Comment on above: Performed By: #### A DIFF, CBC, ANEU, MORPH, DIFF #### [address] [address] ALT [Catalytic activity/Vol] 41 U/L Normal 14-59 [facility] ([place]) Comment on above: Performed By: #### A DIFF, CBC, ANEU, MORPH, DIFF #### [address] [address] AST [Catalytic activity/Vol] 26 U/L Normal 10-40 [facility] ([place]) Comment on above: Performed By: #### A DIFF, CBC, ANEU, MORPH, DIFF #### [address] [address] Bili Total 0.4 mg/dL Normal 0.2-1.0 [facility] ([place]) Comment on above: Result Comment: Use of this assay is not recommended for patients undergoing treatment with eltrombopag due to the potential for falsely elevated results. Performed By: #### A DIFF, CBC, ANEU, MORPH, DIFF #### [address] [address] BUN/Creatinine Ratio 22 ratio Normal 7-27 [facility] ([place]) Comment on above: Performed By: #### A DIFF, CBC, ANEU, MORPH, DIFF #### [address] [address] Calcium [Mass/Vol] 9.0 mg/dL Normal 8.4-10.2 [facility] ([place]) Comment on above: Performed By: #### A DIFF, CBC, ANEU, MORPH, DIFF #### [address] [address] Chloride [Moles/Vol] 106 mmol/L Normal 98-107 [facility] ([place]) Comment on above: Performed By: #### A DIFF, CBC, ANEU, MORPH, DIFF #### [address] [address] CO2 [Moles/Vol] 31 mmol/L High 22-29 [facility] ([place]) Comment on above: Performed By: #### A DIFF, CBC, ANEU, MORPH, DIFF #### [address] [address] Creatinine [Mass/Vol] 0.95 mg/dL Normal 0.55-1.02 [facility] ([place]) Comment on above: Performed By: #### A DIFF, CBC, ANEU, MORPH, DIFF #### [address] [address] Electrolyte Balance 5.0 mEq/L Normal 4.0-15.0 [facility] ([place]) Comment on above: Performed By: #### A DIFF, CBC, ANEU, MORPH, DIFF #### [address] [address] Globulin 3.5 G/dL Normal [facility] ([place]) Comment on above: Performed By: #### A DIFF, CBC, ANEU, MORPH, DIFF #### [address] [address] Glucose [Mass/Vol] 98 mg/dL Normal 70-105 [facility] ([place]) Comment on above: Performed By: #### A DIFF, CBC, ANEU, MORPH, DIFF #### [address] [address] Potassium [Moles/Vol] 4.7 mmol/L Normal 3.5-5.1 [facility] ([place]) Comment on above: Performed By: #### A DIFF, CBC, ANEU, MORPH, DIFF #### [address] [address] Sodium [Moles/Vol] 142 mmol/L Normal 136-145 [facility] ([place]) Comment on above: Performed By: #### A DIFF, CBC, ANEU, MORPH, DIFF #### [address] [address] Total Protein 7.2 G/dL Normal 6.4-8.2 [facility] ([place]) Comment on above: Performed By: #### A DIFF, CBC, ANEU, MORPH, DIFF #### [address] [address] Urea nitrogen [Mass/Vol] 21 mg/dL High 7-18 [facility] ([place]) Comment on above: Performed By: #### A DIFF, CBC, ANEU, MORPH, DIFF #### [address] [address] CRPHSon 05-23-2022 CRP, High Sensitive 0.19 mg/L Low 0.20-3.00 [facility] ([place]) Comment on above: Result Comment: Rela tive Risk Category and Average hs-CRP Level: Higher Risk: > 5.0 mg/L Guidelines support that hs-CRP can be used as an independent predictor of increased coronary risk; however, hs-CRP results should only be interpreted in conjunction with other cardiac risk factors in establishing overall cardiac risk for a given patient. Performed By: #### M ISC #### [place] [address] FEon 05-23-2022 Iron [Mass/Vol] 90 ug/dL Normal 50-170 [facility] ([place]) Comment on above: Performed By: #### A DIFF, CBC, ANEU, MORPH, DIFF #### [place] [address] Jere 05-23-2022 Ferritin [Mass/Vol] 52.0 ng/mL Normal 8.0-252.0 [facility] ([place]) Comment on above: Performed By: #### A DIFF, CBC, ANEU, MORPH, DIFF #### [place] [address] FIBon 05-23-2022 Fibrinogen 387 mg/dL Normal 250-682 [facility] ([place]) Comment on above: Performed By: #### A DIFF, CBC, ANEU, MORPH, DIFF #### [place] [address] FOLon 05-23-2022 Folate 30.07 ng/mL High 5.38-24.00 [facility] ([place]) Comment on above: Performed By: #### M ISC #### [place] [address] IBCon 05-23-2022 TIBC 314 mcg/dL Normal 250-450 [facility] ([place]) Comment on above: Performed By: #### A DIFF, CBC, ANEU, MORPH, DIFF #### [place] [address] INSLNon 05-23-2022 Insulin 6.19 munit/L Normal 2.60-37.60 [facility] ([place]) Comment on above: Performed By: #### M ISC #### [place] [address] LABORATORYOrdered By: SYSTEM SYSTEM on 05-23-2022 Albumin BCP dye [Mass/Vol] 3.7 G/dL Invalid Interpretation Code 3.5 - 5.0 G/dL AO ADM SS Albumin/Globulin [Mass ratio] 1.1 {ratio} Invalid Interpretation Code 1.1 - 2.5 ratio AO ADM SS ALP [Catalytic activity/Vol] 76 U/L Invalid Interpretation Code 40 - 135 U/L AO ADM SS ALT With P-5'-P [Catalytic activity/Vol] 41 U/L Invalid Interpretation Code 14 - 59 U/L AO ADM SS AST With P-5'-P [Catalytic activity/Vol] 26 U/L Invalid Interpretation Code 10 - 40 U/L AO ADM SS Bilirubin [Mass/Vol] 0.4 mg/dL Invalid Interpretation Code 0.2 - 1.0 mg/dL AO ADM SS Calcium [Mass/Vol] 9.0 mg/dL Invalid Interpretation Code 8.4 - 10.2 mg/dL AO ADM SS Chloride [Moles/Vol] 106 mmol/L Invalid Interpretation Code 98 - 107 mmol/L AO ADM SS CO2 [Moles/Vol] 31 mmol/L Invalid Interpretation Code 22 - 29 mmol/L AO ADM SS Cobalamin (Vitamin B12) [Mass/Vol] 629 pg/mL Invalid Interpretation Code 211 - 911 pg/mL AH ADM SS Creatinine [Mass/Vol] 0.95 mg/dL Invalid Interpretation Code 0.55 - 1.02 mg/dL AO ADM SS CRP High sensitivity method [Mass/Vol] 0.19 mg/L Invalid Interpretation Code 0.20 - 3.00 mg/L AH ADM SS Electrolyte Balance 5.0 mEq/L Invalid Interpretation Code 4.0 - 15.0 mEq/L AO ADM SS Ferritin [Mass/Vol] 52.0 ng/mL Invalid Interpretation Code 8.0 - 252.0 ng/mL AO ADM SS Folate [Mass/Vol] 30.07 ng/mL Invalid Interpretation Code 5.38 - 24.00 ng/mL AH ADM SS GFR 74 ml/min/1.73sqm Invalid Interpretation Code AO Chemistry S GFR Non- 61 ml/min/1.73sqm Invalid Interpretation Code AO Chemistry S Globulin 3.5 G/dL Invalid Interpretation Code AO ADM SS Glucose [Mass/Vol] 98 mg/dL Invalid Interpretation Code 70 - 105 mg/dL AO ADM SS HbA1c (Bld) [Mass fraction] 5.2 % Invalid Interpretation Code 4.3 - 6.4 % AO ADM SS Insulin Qn 6.19 munit/L Invalid Interpretation Code 2.60 - 37.60 mU/L AH ADM SS Iron [Mass/Vol] 90 ug/dL Invalid Interpretation Code 50 - 170 mcg/dL AO ADM SS Iron binding capacity [Mass/Vol] 314 mcg/dL Invalid Interpretation Code 250 - 450 mcg/dL AO ADM SS Potassium [Moles/Vol] 4.7 mmol/L Invalid Interpretation Code 3.5 - 5.1 mmol/L AO ADM SS Protein [Mass/Vol] 7.2 G/dL Invalid Interpretation Code 6.4 - 8.2 G/dL AO ADM SS Sodium [Moles/Vol] 142 mmol/L Invalid Interpretation Code 136 - 145 mmol/L AO ADM SS TSH Qn 0.98 m[IU]/L Invalid Interpretation Code 0.36 - 3.74 mcIU/mL AO ADM SS Urea nitrogen [Mass/Vol] 21 mg/dL Invalid Interpretation Code 7 - 18 mg/dL AO ADM SS Urea nitrogen/Creatinine [Mass ratio] 22 ratio Invalid Interpretation Code 7 - 27 ratio AO ADM SS Vit. D 25-Hydroxy 78.1 ng/mL Invalid Interpretation Code AO ADM SS LABORATORYOrdered By: Irma Silva on 05-23-2022 Basophil %, Manual 1.0 1 Invalid Interpretation Code 0.0 - 2.5 % AO Workflow SS Basophil, Abs Manual 0.0 103/mcL Invalid Interpretation Code 0.0 - 0.2 10^3/mcL AO Workflow SS Cholesterol [Mass/Vol] 220 mg/dL Invalid Interpretation Code 0 - 200 mg/dL AO ADM SS Cholesterol in HDL [Mass/Vol] 95 mg/dL Invalid Interpretation Code 40 - 60 mg/dL AO ADM SS Cholesterol in LDL [Mass/Vol] 118 mg/dL Invalid Interpretation Code 0 - 130 mg/dL AO ADM SS Eosinophil %, Manual 2.0 1 Invalid Interpretation Code 0.0 - 7.0 % AO Workflow SS Eosinophils (Bld) [#/Vol] 0.1 103/mcL Invalid Interpretation Code 0.0 - 0.4 10^3/mcL AO Workflow SS Erythrocyte distribution width (RBC) [Ratio] 13.9 % Invalid Interpretation Code 11.5 - 14.5 % AO Hematology S Fibrinogen Coag (PPP) [Mass/Vol] 387 mg/dL Invalid Interpretation Code 250 - 682 mg/dL AO Coag SS Hematocrit (Bld) [Volume fraction] 40.2 % Invalid Interpretation Code 37.0 - 47.0 % AO Hematology S Hemoglobin (Bld) [Mass/Vol] 13.6 G/dL Invalid Interpretation Code 12.0 - 16.0 G/dL AO Hematology S Lymphocyte %, Manual 47.0 1 Invalid Interpretation Code 10.0 - 50.0 % AO Workflow SS Lymphocyte, Abs Manual 1.4 103/mcL Invalid Interpretation Code 0.8 - 3.9 10^3/mcL AO Workflow SS MCH (RBC) [Entitic mass] 30.1 pg Invalid Interpretation Code 27.0 - 31.2 pg AO Hematology S MCHC 33.9 G/dL Invalid Interpretation Code 33.0 - 37.0 G/dL AO Hematology S MCV (RBC) [Entitic vol] 88.7 fL Invalid Interpretation Code 80.0 - 94.0 fL AO Hematology S Monocyte %, Manual 3.0 1 Invalid Interpretation Code 1.7 - 13.0 % AO Workflow SS Monocyte, Abs Manual 0.1 103/mcL Invalid Interpretation Code 0.2 - 1.0 10^3/mcL AO Workflow SS Neutrophil %, Manual 32.0 1 Invalid Interpretation Code 37.0 - 80.0 % AO Workflow SS Neutrophil, Abs Manual 1.0 103/mcL Invalid Interpretation Code 2.9 - 6.2 10^3/mcL AO Workflow SS Nucleated RBC 0.0 /100 WBC Invalid Interpretation Code AO Workflow SS Ovalocytes LM Ql (Bld) 1+ *NA* (05/23/22 7:17 AM) Invalid Interpretation Code AO Workflow SS Platelet Estimate Normal *NA* (05/23/22 7:17 AM) Invalid Interpretation Code AO Workflow SS Platelet mean volume (Bld) [Entitic vol] 7.0 fL Invalid Interpretation Code 7.4 - 10.4 fL AO Hematology S Platelets (Bld) [#/Vol] 291 103/mcL Invalid Interpretation Code 130 - 400 10^3/mcL AO Hematology S RBC (Bld) [#/Vol] 4.53 106/mcL Invalid Interpretation Code 4.20 - 5.40 10^6/mcL AO Hematology S Triglyceride [Mass/Vol] 35 mg/dL Invalid Interpretation Code 0 - 150 mg/dL AO ADM SS Variant lymphocytes/100 WBC (Bld) 15.0 % Invalid Interpretation Code 0.0 - 5.0 % AO Workflow SS WBC (Bld) [#/Vol] 3.1 103/mcL Invalid Interpretation Code 4.6 - 10.8 10^3/mcL AO Hematology S LIPIDon 05-23-2022 Cholesterol [Mass/Vol] 220 mg/dL High 0-200 [facility] ([place]) Comment on above: Result Comment: Chol esterol Reference Interval: Less than 200 Desirable 200-239 Borderline high risk 240 and above High risk Performed By: #### M ISC #### [address] [address] Cholesterol in HDL [Mass/Vol] 95 mg/dL High 40-60 [facility] ([place]) Comment on above: Performed By: #### M ISC #### [place] [address] Cholesterol in LDL [Mass/Vol] 118 mg/dL Normal 0-130 [facility] ([place]) Comment on above: Performed By: #### M ISC #### [place] [address] Triglyceride [Mass/Vol] 35 mg/dL Normal 0-150 [facility] ([place]) Comment on above: Result Comment: Trig lyceride Reference Interval: Less than 150 Normal 150-199 Borderline high risk 200-499 High risk 500 or higher Very high risk Performed By: #### M ISC #### [address] [address] TSHon 05-23-2022 TSH Qn 0.98 m[IU]/L Normal 0.36-3.74 [facility] ([place]) Comment on above: Performed By: #### A DIFF, CBC, ANEU, MORPH, DIFF #### [address] [address] VIDHon 05-23-2022 Vit. D 25-Hydroxy 78.1 ng/mL Normal [facility] ([place]) Comment on above: Result Comment: Inte rpretive Values Based on Total 25(OH) Vitamin D: Deficient <20 ng/mL Insufficient 20 - <30 ng/mL Sufficient 30-100 ng/mL Performed By: #### A DIFF, CBC, ANEU, MORPH, DIFF #### [place] [id number] [place], [place] [address] Vital Signs Date Time Vital Sign Value Performing Clinician Facility 01-01-2025 09:10-0400 Body mass index (BMI) [Ratio] 25.81 kg/m2 Rafael Lozano MD Work Phone: [facility] 01-01-2025 09:10-0400 Body weight 67.13 kg Rafael Lozano MD Work Phone: [facility] 01-01-2025 09:10-0400 Diastolic blood pressure 75 mm[Hg] Rafael Lozano MD Work Phone: [facility] 01-01-2025 09:10-0400 Systolic blood pressure 133 mm[Hg] Rafael Lozano MD Work Phone: [facility] 01-11-2024 10:12-0400 Diastolic blood pressure 70 mm[Hg] Gera Finelli DO Work Phone: [facility] 01-11-2024 10:12-0400 Heart rate 68 /min Gera Finelli DO Work Phone: [facility] 01-11-2024 10:12-0400 Respiratory rate 16 /min Gera Finelli DO Work Phone: [facility] 01-11-2024 10:12-0400 SaO2% (BldA) [Mass fraction] 97 % Gera Finelli DO Work Phone: [facility] 01-11-2024 10:12-0400 Systolic blood pressure 129 mm[Hg] Gera Finelli DO Work Phone: [facility] 01-11-2024 07:43-0400 Body mass index (BMI) [Ratio] 25.91 kg/m2 Gera Finelli DO Work Phone: [facility] 01-11-2024 07:43-0400 Body temperature 97.2 [degF] Gera Finelli DO Work Phone: [facility] 01-11-2024 07:43-0400 Body weight 67.4 kg Gera Francois DO Work Phone: [facility] 01-03-2024 11:10-0400 Body height 161.3 cm Yenifer Robby WATCH TRAIN ASSEMBLER.SQL SERVER CONSULTANT Work Phone: [facility] 01-03-2024 11:10-0400 Body mass index (BMI) [Ratio] 25.91 kg/m2 Yenifer Robby WATCH TRAIN ASSEMBLER.SQL SERVER CONSULTANT Work Phone: [facility] 01-03-2024 11:10-0400 Body temperature 98.01 [degF] Yenifer Robby WATCH TRAIN ASSEMBLER.SQL SERVER CONSULTANT Work Phone: [facility] 01-03-2024 11:10-0400 Body weight 67.41 kg Yenifer Robby WATCH TRAIN ASSEMBLER.SQL SERVER CONSULTANT Work Phone: [facility] 01-03-2024 11:10-0400 Diastolic blood pressure 70 mm[Hg] Yenifer Robby WATCH TRAIN ASSEMBLER.SQL SERVER CONSULTANT Work Phone: [facility] 01-03-2024 11:10-0400 Heart rate 90 /min Yenifer Robby WATCH TRAIN ASSEMBLER.SQL SERVER CONSULTANT Work Phone: [facility] 01-03-2024 11:10-0400 SaO2% (BldA) [Mass fraction] 100 % Yenifer Robby WATCH TRAIN ASSEMBLER.SQL SERVER CONSULTANT Work Phone: [facility] 01-03-2024 11:10-0400 Systolic blood pressure 112 mm[Hg] Yenifer Robby WATCH TRAIN ASSEMBLER.SQL SERVER CONSULTANT Work Phone: [facility] 12-29-2023 09:55-0400 Body height 161.5 cm Rafael Lozano MD Work Phone: [facility] 12-29-2023 09:55-0400 Body mass index (BMI) [Ratio] 25.74 kg/m2 Rafael Lozano MD Work Phone: [facility] 12-29-2023 09:55-0400 Body weight 67.13 kg Rafael Lozano MD Work Phone: [facility] 12-29-2023 09:55-0400 Diastolic blood pressure 60 mm[Hg] Rafael Lozano MD Work Phone: [facility] 12-29-2023 09:55-0400 Systolic blood pressure 102 mm[Hg] Rafael Lozano MD Work Phone: [facility] 01-12-2023 11:51-0400 Body height 162.6 cm MADY CARCAMOT DO [facility] 01-12-2023 11:51-0400 Body temperature 98.6 [degF] MADY COELLOBe-BoundT DO [facility] 01-12-2023 11:51-0400 Body weight 63.6 kg MADY COELLOBe-BoundT DO [facility] 01-12-2023 11:51-0400 Diastolic Blood Pressure Non-Invasive 85 1 MADY COELLOBe-BoundT DO [facility] 01-12-2023 11:51-0400 Heart rate 75 /min MADY COELLOBe-BoundT DO [facility] 01-12-2023 11:51-0400 Respiratory rate 16 /min MAYD COELLOBe-BoundT DO [facility] 01-12-2023 11:51-0400 Systolic Blood Pressure Non-Invasive 165 1 AMDY COELLOBe-BoundT DO [facility] 01-07-2023 17:05-0400 Diastolic Blood Pressure Non-Invasive 72 1 MARCK [employer] [facility] 01-07-2023 17:05-0400 Heart rate 50 /min MARCK [employer] [facility] 01-07-2023 17:05-0400 Respiratory rate 18 /min MARCK [employer] [facility] 01-07-2023 17:05-0400 Systolic Blood Pressure Non-Invasive 135 1 MARCK WILLIE DO [facility] 01-07-2023 16:25-0400 Diastolic Blood Pressure Non-Invasive 73 1 MARCK WILLIE DO [facility] 01-07-2023 16:25-0400 Heart rate 57 /min MARCK WILLIE DO [facility] 01-07-2023 16:25-0400 Respiratory rate 14 /min MARCK WILLIE DO [facility] 01-07-2023 16:25-0400 Systolic Blood Pressure Non-Invasive 122 1 MARCK WILLIE DO [facility] 01-07-2023 16:10-0400 Diastolic Blood Pressure Non-Invasive 73 1 MARCK WILLIE DO [facility] 01-07-2023 16:10-0400 Heart rate 54 /min MARCK WILLIE DO [facility] 01-07-2023 16:10-0400 Respiratory rate 14 /min MARCK WILLIE DO [facility] 01-07-2023 16:10-0400 Systolic Blood Pressure Non-Invasive 141 1 MARCK WILLIE DO [facility] 01-07-2023 15:15-0400 Heart rate 71 /min MARCK WILLIE DO [facility] 01-07-2023 15:09-0400 Heart rate 74 /min MARCK WILLIE DO [facility] 01-07-2023 15:05-0400 Respiratory Rate - Anes 0 br/min MARCK WILLIE DO [facility] 01-07-2023 15:03-0400 Body temperature 96.98 [degF] MARCK WILLIE DO [facility] 01-07-2023 15:03-0400 Heart rate 79 /min MARCK WILLIE DO [facility] 01-07-2023 14:55-0400 Respiratory Rate - Anes 17 br/min MARCK WILLIE DO [facility] 01-07-2023 11:37-0400 Body weight 24.21 kg/m2 MARCK WILLIE DO [facility] 01-07-2023 11:30-0400 Body height 162.6 cm MARCK WILLIE DO [facility] 01-07-2023 11:30-0400 Body temperature 97.34 [degF] MARCK WILLIE DO [facility] 01-07-2023 11:30-0400 Body weight 64 kg MARCK WILLIE DO [facility] 12-23-2022 09:04-0400 Blood Pressure Cuff Size MARCK WILLIE DO [facility] 12-23-2022 09:04-0400 Blood Pressure Location MARCK WILLIE DO [facility] 12-23-2022 09:04-0400 Blood Pressure Method MARCK WILLIE DO [facility] 12-23-2022 09:04-0400 Body height 162.6 cm MARCK WILLIE DO [facility] 12-23-2022 09:04-0400 Body weight 64 kg MARCK WILLIE DO [facility] 12-23-2022 09:04-0400 Body weight 24.21 kg/m2 MARCK [facility] [employer] [facility] 12-23-2022 09:04-0400 Diastolic Blood Pressure Non-Invasive 66 1 MARCK [facility] [employer] [facility] 12-23-2022 09:04-0400 Heart rate 75 /min [facility] [employer] [facility] 12-23-2022 09:04-0400 Systolic Blood Pressure Non-Invasive 108 1 MARCK [facility] [employer] [facility] 10-31-2021 09:49-0400 Body height 162.6 cm [facility] 10-31-2021 09:49-0400 Body weight 63.5 kg [facility] Encounters Encounter Date Encounter Type Care Provider Facility Start: 03-23-2025 ambulatory AUSTYN AVENDANO Facility:[facility] Start: 02-02-2025 End: 02-02-[address] LUIS RAMIREZ DO [facility] Start: 02-02-2025 End: 02-02-[address] MATEO GRACIA MD [facility] Start: 01-29-2025 End: 01-29-[address] LUIS RAMIREZ DO Facility[facility] Start: 01-29-2025 End: 01-29-[address] MATEO GRACIA MD [facility] Start: 01-01-2025 End: 01-01-2025 Patient encounter procedure Rafael Lozano MD Work Phone: OB/Gynecology Comment on above: Encounter for gyneco logical examination (general) (routine) without abnormal findings (Primary Dx); Encounter for screening mammogram for breast cancer; Dense breast tissue Start: 01-01-2025 End: 01-01-2025 Patient encounter status Rafael Lozano MD Work Phone: [facility] Work Phone: Start: 01-01-2025 End: 01-01-2025 ambulatory RAFAEL LOZANO Facility:[facility] Start: 01-01-2025 Encounter for gynecological examination (general) (routine) without abnormal findings RAFAEL LOZANO [facility] Start: 07-13-2024 End: 07-13-[address] LUIS RAMIREZ DO Facility[facility] Start: 07-13-2024 End: 07-13-2024 Patient encounter procedure HYACINTH GRACIA MD [facility] Start: 06-07-2024 ambulatory Luis Ramirez Facility:[facility] Start: 05-16-2024 End: 05-20-[address] LUIS RAMIREZ DO Facility:[facility] Start: 05-16-2024 End: 05-20-2024 Outreach Lab EVAN MCKEON WATCH TRAIN ASSEMBLER-SQL SERVER CONSULTANT [facility] Start: 04-28-2024 End: 04-28-[address] LUIS RAMIREZ DO Facility:[facility] Start: 04-28-2024 End: 04-28-[address] MATEO GRACIA MD [facility] Start: 04-01-2024 End: 04-01-2024 ambulatory [facility] Start: 04-01-2024 End: 04-01-2024 Subsequent hospital visit by physician Blaise Sd 1 [facility] Comment on above: Hyperlipidemia, unsp ecified Start: 03-22-2024 End: 03-22-[address] LUIS RAMIREZ DO Facility:[facility] Start: 03-22-2024 End: 03-22-[address] MATEO GRACIA MD [facility] Start: 02-23-2024 End: 02-23-[address] LUIS RAMIREZ DO Facility:[facility] Start: 02-23-2024 End: 02-23-[address] MATEO GRACIA MD [facility] Start: 01-13-2024 End: 01-13-2024 Admission to same day surgery center Yenifer Vines APRN.SQL SERVER CONSULTANT Work Phone: General Surgery Comment on above: colonoscopy results Start: 01-13-2024 End: 01-13-2024 E-mail encounter from caregiver Yenifer Vines APRN.SQL SERVER CONSULTANT Work Phone: General Surgery Start: 01-11-2024 End: 01-11-2024 ambulatory LUIS RAMIREZ Facility:[facility] Start: 01-11-2024 End: 01-11-2024 Subsequent hospital visit by physician Gera Francois DO Work Phone: Ambulatory Surgery Comment on above: Screen for colon can cer [Z12.11] Start: 01-03-2024 End: 01-03-2024 Admission to same day surgery center Yenifer Vines APRN.SQL SERVER CONSULTANT Work Phone: General Surgery Comment on above: colonoscopy Start: 01-03-2024 End: 01-04-2024 Documentation procedure Mammography Coordinator [facility] Department Start: 01-03-2024 End: 01-03-2024 E-mail encounter from caregiver Yenifer Vines APRN.SQL SERVER CONSULTANT Work Phone: General Surgery Start: 01-03-2024 End: 01-04-2024 Letter encounter Mammography Coordinator [facility] Department Start: 01-03-2024 End: 01-03-2024 Patient encounter procedure Yenifer Vines APRN.SQL SERVER CONSULTANT Work Phone: General Surgery Comment on above: Screen for colon can cer (Primary Dx) Start: 01-03-2024 End: 01-03-2024 ambulatory YENIFER VINES Facility:[facility] Start: 01-03-2024 End: 01-03-2024 Subsequent hospital visit by physician Screen Mammo [facility] Comment on above: Encounter for screen ing mammogram for breast cancer [Z12.31] Start: 12-29-2023 End: 12-29-2023 Patient encounter procedure Rafael Lozano MD Work Phone: OB/Gynecology Comment on above: Encounter for gyneco logical examination (general) (routine) without abnormal findings (Primary Dx); Encounter for screening mammogram for breast cancer; Screening for cervical cancer; Special screening examination for human papillomavirus (HPV) Start: 12-29-2023 End: 12-29-2023 Patient encounter status Rafael Lozano MD Work Phone: [facility] Start: 04-14-2023 End: 04-15-[address] LUIS RAMIREZ DO Facility:A Start: 04-14-2023 End: 04-14-2023 Patient encounter procedure DEEP VELAZCO MD [facility] Start: 03-01-2023 End: 03-02-[address] LUIS RAMIREZ DO Facility:B Start: 03-01-2023 End: 03-01-[address] LUIS RAMIREZ DO [facility] Start: 01-12-2023 End: 01-12-2023 Emergency department patient visit MADY MEIER DO Facility:B Start: 01-12-2023 End: 01-12-2023 Emergency department patient visit MADY MEIER DO [facility] Start: 01-07-2023 End: 01-07-2023 ambulatory MARCK HAM DO Facility:B Start: 01-07-2023 End: 01-07-2023 SAME DAY STAY MARCK SKINNERAM [facility] Start: 12-23-2022 End: 12-24-2022 ambulatory MARCK ROMEROIGHAM Facility:B Start: 12-23-2022 End: 12-23-2022 [facility] Start: 12-14-2022 End: 12-15-[address] MATEO GRACIA MD Facility:B Start: 11-05-2022 End: 11-06-[address] MATEO GRACIA MD Facility:B Start: 11-05-2022 End: 11-05-[address] MATEO GRACIA MD [facility] Start: 11-03-2022 End: 11-04-[address] MATEO GRACIA MD Facility:B Start: 11-03-2022 End: 11-03-[address] MATEO GRACIA MD [facility] Start: 10-29-2022 End: 10-30-[address] LUIS RAMIREZ DO Facility:B Start: 10-29-2022 End: 10-29-[address] LUIS RAMIREZ DO [facility] Start: 10-20-2022 End: 10-21-2022 ambulatory JHOANA HINOJOSA MD Facility:B Start: 10-20-2022 End: 10-20-2022 Patient encounter procedure JHOANA HINOJOSA MD [facility] Start: 09-02-2022 End: 09-03-[address] LUIS RAMIREZ DO Facility:B Start: 09-02-2022 End: 09-02-[address] LUIS RAMIREZ DO [facility] Start: 05-23-2022 End: 05-24-[address] MATEO GRACIA MD Facility:B Start: 05-23-2022 End: 05-23-[address] MATEO GRACIA MD [facility] Start: 11-25-2021 End: 11-25-2021 Nursing evaluation of patient and report Kerri Ernandez RN Work Phone: Orthopaedics Comment on above: Trigger finger, left middle finger (Primary Dx); Trigger middle finger of right hand Start: 11-18-2021 End: 11-18-2021 Nursing evaluation of patient and report Kerri Ernandez RN Work Phone: Orthopaedics Comment on above: Trigger finger, left middle finger (Primary Dx); Trigger middle finger of right hand Start: 10-31-2021 End: 10-31-2021 Admission to [facility] Start: 10-31-2021 End: 10-31-2021 ambulatory [facility] Comment on above: Pre-op evaluation (P rimary Dx); Trigger finger, unspecified finger, unspecified laterality Start: 10-31-2021 End: 10-31-2021 Preprocedural examination done [facility] Start: 10-02-2021 End: 10-02-2021 Patient encounter procedure Blas Gibbons MD Work Phone: Orthopedics Comment on above: Acquired trigger fin danielle of left middle finger (Primary Dx); Acquired trigger finger of right middle finger Procedures Date Procedure Procedure Detail Performing Clinician Start: 01-11-2024 Colonoscopy flx dx w /collj spec when pfrmd Yenifer Vines APRN.SQL SERVER CONSULTANT Work Phone: Start: 01-11-2024 Colonoscopy Gear haro DO Work Phone: Start: 01-03-2024 End: 01-03-2024 Screening digital breast tomosynthesis bi Roxanna Chapa MD Work Phone: Start: 12-29-2023 Microscopic observat ion [Identifier] in Cervix by Cyto stain Blaise 1 Start: 01-07-2023 Excision of thyroglo ssal duct cyst MARCK ROMEROIGHAM Start: 02-12-2021 Mammography Blas pickens MD Work Phone: Start: 05-17-[address] MATEO GRACIA MD Start: 01-07-2012 Colonoscopy Blas pickens MD Work Phone: Appendectomy DR MATEO GRACIA MD Bilateral trigger fi ngers (disorder) MARCK HAM DO Intestinal structure (body structure) DR MATEO GRACIA MD Comment on above: partial bowel resect ion Tubal (disorder) D R MATEO GRACIA MD Plan of Treatment Date Care Activity Detail Author Start: 01-10-2034 Screening for malign ant neoplasm of colon [facility] Start: 01-12-2033 DTaP/Tdap/Td Vaccine s (3 - Td or Tdap) DTaP/Tdap/Td Vaccines (3 - Td or Tdap) [facility] Start: 01-12-2033 Urine microalbumin profile DTaP,Tdap,Td Vaccine (3 - Td or Tdap) [facility] Start: 12-28-2028 Screening for malign ant neoplasm of cervix Cervical Cancer Screening [facility] Start: 12-28-2026 Screening for malign ant neoplasm of cervix [facility] Start: 02-01-2026 End: 02-01-2026 Patient encounter procedure 02/01/2026 9:00 AM EDT Office Visit OB/Gynecology [address] [place] [address] Aileen Cote MD [address] [place] [id number] Annual OB/Gynecology Comment on above: Annual Start: 09-01-2025 Influenza vaccination Influenza Vacc ine (#1) [facility] Start: 01-02-2025 Screening for malign ant neoplasm of breast [facility] Start: 01-01-2025 End: 01-01-2025 Patient encounter procedure 01/01/2025 9:10 AM EDT Office Visit OB/Gynecology [address] [place] [address] Rafael Lozano MD [address] [facility] [place], [place] [address] ANNUAL OB/Gynecology Comment on above: ANNUAL Start: 10-10-2024 HPV TESTING HPV TESTING [facility] Start: 10-10-2024 PAP TESTING PAP TESTING [facility] Start: 10-10-2024 Screening for malign ant neoplasm of cervix Cervical Cancer Screening [facility] Start: 01-16-2024 COVID-19 Vaccine ( season) COVID-19 Vaccine () [facility] Start: 01-16-2024 Influenza vaccination Influenza Vacc ine (#1) [facility] Start: 01-11-2024 End: 01-11-2024 Patient encounter procedure 01/11/2024 7:30 AM EDT Appointment Ambulatory Surgery [address] [place], [place] [address] Gera Francois, DO [address] [place] [address] Screen for colon cancer [Z12.11] Ambulatory Surgery Comment on above: Screen for colon can cer [Z12.11] Start: 01-15-2023 Covid-19 Vaccine ( season) Covid-19 Vaccine () [facility] Start: 02-12-2022 Mammography MAMMOGRAM [facility] Start: 01-15-2022 Influenza vaccination C [facility] Start: 01-06-2022 Colonoscopy COLONOSCOPY [facility] Start: 01-06-2022 COLORECTAL CANCER SCREENING COLORECTAL CANCER SCREENING [facility] Start: 01-06-2022 Screening for malign ant neoplasm of colon [facility] Start: 12-31-2015 Pneumococcal Vaccine : 50+ (1 of 1 - PCV) Pneumococcal Vaccine: 50+ (1 of 1 - PCV) [facility] Start: 12-31-2015 SHINGRIX VACCINE (1 of 2) SHINGRIX VACCINE (1 of 2) [facility] Start: 12-31-2015 Zoster Vaccines (1 o f 2) Zoster Vaccines (1 of 2) [facility] Start: 2010 COLOGUARD (FIT-DNA) COLOGUARD (FIT-D NA) [facility] Start: [address] COLONOGRAPHY [facility] Start: 2010 DIABETES SCREEN DIABETES SCREEN [facility] Start: 2010 Diabetes Screening Diabetes Screenin g [facility] Start: 2010 FECAL OCCULT BLOOD FECAL OCCULT BLOO D [facility] Start: 2010 Lipid panel Lipid Screening [facility] Start: 2010 LIPID SCREEN LIPID SCREEN [facility] Start: 2010 Screening for malign ant neoplasm of colon [facility] Start: 2010 SIGMOIDOSCOPY SIGMOIDOSCOPY [facility] Start: 1986 Screening for malign ant neoplasm of cervix HPV/Cotest [facility] Start: 1984 Hepatitis B Vaccine (1 of 3 - 19+ 3-dose series) Hepatitis B Vaccine (1 of 3 - 19+ 3-dose series) [facility] Start: 1984 Hepatitis B Vaccines (1 of 3 - 19+ 3-dose series) Hepatitis B Vaccines (1 of 3 - 19+ 3-dose series) [facility] Start: 1984 Urine microalbumin profile DTAP,TDAP,TD (1 - Tdap) [facility] Start: 12-31-1983 Anxiety Screening Anxiety Screening [facility] Start: 12-31-1983 Depression Screening Depression Scre ening [facility] Start: 12-31-1983 HEPATITIS C SCREENING HEPATITIS C [facility] Start: 12-31-1983 Hepatitis C screening Hepatitis C [facility] Start: 12-31-1983 HIV SCREENING HIV SCREENING [facility] Start: 12-31-1983 HIV screening HIV Screening [facility] Start: 1977 Adult depression screening assessment DEPRESSION SCREENING [facility] Start: 12-31-1971 Pneumococcal Vaccine : Pediatrics (0 to 5 Years) and At-Risk Patients (6 to 64 Years) (1 of 2 - PCV) Pneumococcal Vaccine: Pediatrics (0 to 5 Years) and At-Risk Patients (6 to 64 Years) (1 of 2 - PCV) [facility] Start: 1970 COVID-19 VACCINE (#1) COVID-19 VACCI NE (#1) [facility] Start: 1966 MMR Vaccines (1 of 1 - Standard series) MMR Vaccines (1 of 1 - Standard series) [facility] Start: 07-02-1966 COVID-19 VACCINE (#1) COVID-19 VACCI NE (#1) [facility] Start: 1965 HIV screening HIV Screening [facility] Start: 1965 Lipid panel Lipid Panel [facility] Start: 1965 Screening for malign ant neoplasm of colon [facility] Start: 1965 Yearly Adult Physical Yearly Adult P hysical [facility] End: 04-01-2024 CT for calcium scoring WO contrast and CTA W contrast IV Heart and coronary arteries [facility] Service Area Work Phone: Comment on above: Once for 1 Occurrenc es starting 04/01/2024 until 04/01/2024 End: 01-31-2026 DBT Breast - bilateral screening JOSE SCREENING W KEI Radiology Routine Encounter for gynecological examination (general) (routine) without abnormal findings Encounter for screening mammogram for breast cancer Dense breast tissue 1 Occurrences starting 01/01/2025 until 01/31/2026 [facility] Work Phone: Comment on above: 1 Occurrences starti ng 01/01/2025 until 01/31/2026 HIGH RISK HUMAN PAPILLOMA VIRUS (HPV), PCR FOR DETECTION AND GENOTYPING HIGH RISK HUMAN PAPILLOMA VIRUS (HPV), PCR FOR DETECTION AND GENOTYPING Lab Routine Encounter for gynecological examination (general) (routine) without abnormal findings Screening for cervical cancer Special screening examination for human papillomavirus (HPV) 12/29/2023 1:24 PM EDT [facility] PAP TEST PAP TEST Lab Yusef grover Encounter for gynecological examination (general) (routine) without abnormal findings Screening for cervical cancer Special screening examination for human papillomavirus (HPV) 12/29/2023 1:24 PM EDT [facility] Work Phone: End: 01-02-2025 Screening colonoscopy COLONOSCOPY SCREENING Endoscopy Routine Screen for colon cancer 1 Occurrences starting 01/03/2024 until 01/02/2025 [facility] Work Phone: Comment on above: 1 Occurrences starti ng 01/03/2024 [facility] Immunization Date Immunization Notes Care Provider Fa [facility] 01-12-2023 tetanus toxoid, redu rafat diphtheria toxoid, and acellular pertussis vaccine, adsorbed MADY DONALigia DO [facility] 03-23-2022 influenza virus vaccine, unspecified formulation DR LUIS RAMIREZ DO [facility] 04-03-2021 SARS-CoV-2 (COVID-19 ) Ad26 vaccine, recombinant DR LUIS RAMIREZ DO [facility] Comment on above: Result Comment: 2022: TPV20 03-11-2021 influenza virus vaccine, unspecified formulation DR LUIS RAMIREZ DO [facility] 07-11-2020 SARS-CoV-2 (COVID-19 ) mRNA-[address] LUIS RAMIREZ DO [facility] 06-13-2020 SARS-CoV-2 (COVID-19 ) mRNA-[address] LUIS RAMIREZ DO [facility] 02-27-2020 influenza virus vaccine, unspecified formulation DR LUIS RAMIREZ DO [facility] 02-14-2019 influenza virus vaccine, unspecified formulation DR LUIS RAMIREZ DO [facility] 02-13-2018 influenza virus vaccine, unspecified formulation DR LUIS RAMIREZ DO [facility] 01-14-2018 diphtheria and tetan us toxoids, adsorbed for pediatric use DR LUIS RAMIREZ DO [facility] 02-05-2017 influenza virus vaccine, unspecified formulation DR LUIS RAMIREZ DO [facility] 02-14-2016 influenza virus vaccine, unspecified formulation DR LUIS RAMIREZ DO [facility] 02-01-2015 influenza virus vaccine, unspecified formulation DR LUIS RAMIREZ DO [facility] Payers Date Payer Category Payer Self-pay 2024 Unknown [id number] 2024 Private Health Insurance [id number] 2021 [employer] [place] [employer] Managed Care [facility] [id number] 2020 Unknown FOR[facility]LY [facility] [facility] [id number] 2020-Present [phone] [address] [place] [address] [facility] [id number] 2020 Unknown [id number]. [id number] 2020 Unknown [id number] 1965 Unknown [id number] 2.16.840.1.590354.3.579.2. 1965 Unknown [id number] 2.16.840.1.106461.3.579.2. 1965 Unknown [id number] 2..840.1.516601.3.579.2. 1965 Unknown [id number] 2..840.1.503158.3.579.2. 1965 Unknown [id number] 2.840.1.919133.3.579.2. 1965 Unknown [id number] 2..840.1.687279.3.579.2. 1965 Unknown [id number] 2..840.1.837760.3.579.2. 1965 Unknown [id number] 2..840.1.973306.3.579.2. 1965 Unknown [id number] 2.840.1.722739.3.579.2. 1965 Unknown [id number] 2..840.1.078583.3.579.2. 1965 Unknown [id number] 2.16.840.1.378128.3.579.2. 1965 Unknown [id number] 2.16.840.1.307006.3.579.2. 1965 Unknown [id number] 2.16.840.1.514524.3.579.2. 1243 1965 Unknown [id number] 2.16.840.1.262162.3.579.2. 627 1965 Unknown [id number] 2.16.840.1.811465.3.579.2. 627 1965 Unknown [id number] 2.16.840.1.376409.3.579.2. 627 1965 Unknown [id number] 2.16.840.1.970737.3.579.2. 62 1965 Unknown [id number] 2.16.840.1.405184.3.579.2. 627 1965 Unknown [id number] 2.16.840.1.378770.3.579.2. 627 1965 Unknown [id number] 2.16.840.1.792885.3.579.2. 627 Unknown [id number] 2..840.1.050100.3.579.2. 462 Unknown [id number] 2.16.840.1.913703.3.579.2. 462 Social History Date Type Detail Facility Start: 07-18-2020 End: 04-14-2023 Tobacco smoking status NHIS Never smoked tobacco [facility] Work Phone: Start: 05-29-2021 End: 01-01-2025 Alcohol intake Current non-drinker of alcohol (finding) [facility] Start: 1965 Sex Assigned At Female [facility] Start: 09-22-2021 End: 04-01-2024 Exposure to SARS-CoV-2 (event) Not sure [facility] Work Phone: Sex Assigned At [facility] Start: 06-03-2015 Tobacco use and exposure Smokeless tobacco non-user [facility] Start: 12-29-2023 End: 01-03-2024 History of Social function [facility] Start: 12-29-2023 End: 01-03-2024 Tobacco use panel [facility] Start: 04-17-2012 National Score (1-100), lower number is lower risk 66 [facility] Start: 08-22-2020 Gender identity Identifies as female gender (finding) [facility] Start: 08-22-2020 Sexual orientation Heterosexual (finding) [facility] Tobacco smoking stat NHIS Tobacco smoking consumption unknown [facility] Work Phone: Start: 1965 Sex assigned at Not on file [facility] Work Phone: Start: 02-23-2015 Sex Female (finding) [facility] Functional Status Date Assessment Result Facility 01-12-2023 Functional Status Standard Safet y ID band on, Call device within reach, Bed in low position, Wheels locked, Upper/Half-Length side-rails up, Bedside Cart Locked, Safety level maintained [facility] 01-07-2023 Functional Status Awake, Standing at bedside [facility] 01-07-2023 Functional Status ice chips and sips take n [facility] 01-07-2023 Functional Status Safety level maintained [facility] 01-07-2023 Functional Status Mone Ho spital [facility] 12-23-2022 Functional Status Sensory Deficits None [facility] Mental Status Date Assessment Result Facility 01-12-2023 Mental Status [facility] 01-07-2023 Mental Status Oriented x 4 [facility] 01-07-2023 [facility] 01-07-2023 Mental Status Orientation Asse ssment Oriented x 4 [facility] Clinical Notes 10-02-2021 to 02-02-2025 Rafael Lozano MD - 01/01/2025 9:03 AM EDTLaboratoryDischarge Instr - Nursing - Michelle Dee RN - 01/11/2024 9:57 AM Michelle Ramires RN - 01/11/2024 9:53 AM EDTLaboratoryLaboratory Note Date & Type Note Facility 02-02-2025 Evaluation + Plan note Diagnostic Tests PendingReverse T3, Serum 9/19/25NMR LipoProfile+Lipids 02/02/25MISC Lab Send out (Blood Specimens) 02/02/25 [facility] 01-29-2025 Evaluation + Plan note Diagnostic Tests PendingEstrone, Serum 01/29/25DHEA, Serum 01/29/25Testosterone,Free and Total (Ref,$,5d) 01/29/25 [facility] 01-01-2025 Note HNO ID: [id number] Author: RAFAEL LOZANO MD Service: ? Author Type: Physician Type: Progress Notes Filed: 01/01/2025 09:57 Note Text: Childcare Worker offered: Patient accepts, visit chaperoned by Benjie Cheng Lpn. Nicole is a 59 year old who presents for an annual gynecologic exam without complaints. 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 History LMP: 05/17/2017, Postmenopausal Age at Menarche: 13 Age at First : Age at Menopause: Song [employer] Dance Performer History Comments: Sexual Activity: Yes; Male Contraception: None PAST MEDICAL HISTORY Diagnosis Date Female infertility of unspecified origin Female infertility Hemorrhage of gastrointestinal tract, unspecified PMH - PAST MEDICAL HISTORY OF kidney stones Unspecified , without mention of complication, unspecified (HCC) PAST SURGICAL HISTORY Procedure Laterality Date COLONOSCOPY FLX DX W/COLLJ SPEC WHEN PFRMD 01/07/2012 Colonoscopy CURETTAGE IANDD THYROGLOSSAL DUCT CYST 2022 LAPAROSCOPY ENTEROLYSIS SEPARATE PROCEDURE 02/26/2015 PAST SURGICAL HISTORY OF 08/15/2004 appendectomy, laparoscopy SALPINGECTOMY left TX ECTOPIC ABDL FAMILY HISTORY Problem Relation Age of Onset Breast Cancer Mother 80 - 99 Cancer Father Thyroid Hypertension Sister Hyperlipidemia Sister Hypertension Brother Hyperlipidemia Brother SOCIAL HISTORY Social History Tobacco Use Smoking status: Never Smokeless tobacco: Never Vaping Use Vaping status: Never Used Substance Use Topics Alcohol use: No Drug use: No REVIEW OF SYSTEMS Abdomen: No abdominal pain, nausea, vomiting, diarrhea, or constipation. No bloating, early satiety, indigestion, or increased flatulence. Bladder: No dysuria, gross hematuria, urinary frequency, urinary urgency, or incontinence Breast: No breast lumps, nipple d/c, overlying skin changes, redness or skin retraction Allergies and current medication updated:Yes SENSITIVE EXAM: The sensitive examination was discussed with the Patient or Patient's Authorized Tie Tape Machine Operator. As applicable, any other physician, advance practice provider, medical student, or other health professional student that will be observing or involved in the sensitive examination for educational or training purposes was discussed with the Patient or Authorized Tie Tape Machine Operator. The Patient or Authorized Tie Tape Machine Operator has agreed to proceed with the sensitive examination. (Sensitive examination includes inspection and/or palpation of the breasts, pelvis, prostate and anorectal regions). EXAM: BP 133/75 Wt 148 lb (67.1kg) LMP 05/17/2017 GENERAL: pleasant, female in no apparent distress HEENT: Normocephalic, atraumatic, mucus membranes moist, and no lesions NECK: Supple, full range of motion, no adenopathy, and thyroid normal DERMATOLOGY: Normal, without lesions, non-icteric, and non-hirsute BREAST: soft, non-tender, symmetric, no dominant mass, normal nipple-areolar complex, no lymphadenopathy, and no nipple discharge CHEST: Normal inspiratory effort ABDOMEN: soft, non-tender, and no masses PELVIC: external genitalia normal, normal Bartholin's glands, urethra, [place]'s glands, no vulvar lesions, no cervical lesions, good vaginal support, physiologic discharge present, normal appearing perineal body and perianal region BIMANUAL: uterus normal size, shape and consistency, no adnexal masses, and non-tender RECTOVAGINAL: rectovaginal exam negative for any masses or nodularity. EXTREMITIES: normal ASSESSMENT/PLAN: 1) Health maintenance: Pap/HPV up to date. 2) Follow up one year or sooner as needed Rafael Lozano MD [facility] 01-01-2025 History of Presen t illness Narrative Childcare Worker offered: Patient accepts, visit chaperoned by Benjie Cheng Lpn. Nicole is a 59 year old who presents for an annual gynecologic exam without complaints. 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 History LMP: 05/17/2017, Postmenopausal Age at Menarche: 13 Age at First : Age at Menopause: Song And Dance Performer History Comments: Sexual Activity: Yes; Male Contraception: None PAST MEDICAL HISTORY Diagnosis Date Female infertility of unspecified origin Female infertility Hemorrhage of gastrointestinal tract, unspecified PMH - PAST MEDICAL HISTORY OF kidney stones Unspecified , without mention of complication, unspecified (HCC) PAST SURGICAL HISTORY Procedure Laterality Date COLONOSCOPY FLX DX W/COLLJ SPEC WHEN PFRMD 01/07/2012 Colonoscopy CURETTAGE I&D THYROGLOSSAL DUCT CYST 2022 LAPAROSCOPY ENTEROLYSIS SEPARATE PROCEDURE 02/26/2015 PAST SURGICAL HISTORY OF 08/15/2004 appendectomy, laparoscopy SALPINGECTOMY left [place] ECTOPIC ABDL FAMILY HISTORY Problem Relation Age of Onset Breast Cancer Mother 80 - 99 Cancer Father Thyroid Hypertension Sister Hyperlipidemia Sister Hypertension Brother Hyperlipidemia Brother SOCIAL HISTORY Social History Tobacco Use Smoking status: Never Smokeless tobacco: Never Vaping Use Vaping status: Never Used Substance Use Topics Alcohol use: No Drug use: No REVIEW OF SYSTEMS Abdomen: No abdominal pain, nausea, vomiting, diarrhea, or constipation. No bloating, early satiety, indigestion, or increased flatulence. Bladder: No dysuria, gross hematuria, urinary frequency, urinary urgency, or incontinence Breast: No breast lumps, nipple d/c, overlying skin changes, redness or skin retraction Allergies and current medication updated:Yes SENSITIVE EXAM: The sensitive examination was discussed with the Patient or Patient's Authorized Tie Tape Machine Operator. As applicable, any other physician, advance practice provider, medical student, or other health professional student that will be observing or involved in the sensitive examination for educational or training purposes was discussed with the Patient or Authorized Tie Tape Machine Operator. The Patient or Authorized Tie Tape Machine Operator has agreed to proceed with the sensitive examination. (Sensitive examination includes inspection and/or palpation of the breasts, pelvis, prostate and anorectal regions). EXAM: BP 133/75 Wt 148 lb (67.1kg) LMP 05/17/2017 GENERAL: pleasant, female in no apparent distress HEENT: Normocephalic, atraumatic, mucus membranes moist, and no lesions NECK: Supple, full range of motion, no adenopathy, and thyroid normal DERMATOLOGY: Normal, without lesions, non-icteric, and non-hirsute BREAST: soft, non-tender, symmetric, no dominant mass, normal nipple-areolar complex, no lymphadenopathy, and no nipple discharge CHEST: Normal inspiratory effort ABDOMEN: soft, non-tender, and no masses PELVIC: external genitalia normal, normal Bartholin's glands, urethra, [place]'s glands, no vulvar lesions, no cervical lesions, good vaginal support, physiologic discharge present, normal appearing perineal body and perianal region BIMANUAL: uterus normal size, shape and consistency, no adnexal masses, and non-tender RECTOVAGINAL: rectovaginal exam negative for any masses or nodularity. EXTREMITIES: normal ASSESSMENT/PLAN: 1) Health maintenance: Pap/HPV up to date. 2) Follow up one year or sooner as needed Rafael oLzano MD documented in this encounter [facility] 07-13-2024 Evaluation + Plan note Diagnostic Tests PendingLp-PLA2 Activity 07/13/24OmegaCheck(TM) (EPA+DPA+DHA) 07/13/24TMAO (Trimethylamine N-oxide) 07/13/24Lipoprotein (a) 07/13/24Apolipoprotein B 07/13/24Miscellaneous LC Test 07/13/24 [facility] 05-18-2024 Note . MICRO - Microbiology PROCEDURE: Throat Culture [O1 *1] SOURCE: Throat BODY SITE: Throat COLLECTED DATE/TIME: 05/16/2024 14:09 EST RECEIVED DATE/TIME: 05/16/2024 18:57 EST START DATE/TIME: 05/16/2024 18:57 EST FREE TEXT SOURCE: FINAL REPORTS Final Report [] Verified Date/Time/Personnel: 05/18/2024 07:31 EST Normal throat michael present Sensitivity Testing: Not Indicated PRELIMINARY REPORTS Preliminary Report [] Verified Date/Time/Personnel: 05/17/2024 09:00 EST Negative for upper respiratory pathogens at 24 hours. Order Comments O1: Throat Culture Please foreward results to PCP Dr Ramirez. Performing Locations *1: This test was performed at: [facility], [address] [place] [address], [phone] , [facility] 04-28-2024 Evaluation + Plan note Diagnostic Tests PendingEstrone, Serum 04/28/24Testosterone,Free and Total 04/28/24 [facility] 02-23-2024 Evaluation + Plan note Diagnostic Tests PendingTestosterone,Free and Total 02/23/24 Future Scheduled TestsBasic Metabolic Panel 04/12/23Complete Blood Count 03/05/23 [facility] 01-11-2024 Note Formatting of this n ote might be different from the original. The patient received a copy of Colonoscopy discharge instructions that contain information for how to contact the physician who performed the procedure and when to seek medical care. [facility] 01-11-2024 Miscellaneous Notes The patient received a copy of Colonoscopy discharge instructions that contain information for how to contact the physician who performed the procedure and when to seek medical care. documented in this encounter [facility] 01-11-2024 Note HNO ID: [id number] Author: MICHELLE DEE RN Service: ? Author Type: Registered Nurse Type: Nursing Progress Note Filed: 01/11/2024 09:54 Note Text: Dr Francois at bedside speaking to patient about procedure. Patient awake and asking questions to MD. [facility] 01-11-[address] Francois at bedside speaking to patient about procedure. Patient awake and asking questions to MD. [facility] 01-11-[address] Francois at bedside speaking to patient about procedure. Patient awake and asking questions to MD. Patient received in phase II via cart in left lateral position, eyes open, alert and oriented x 3, skin warm and dry, respirations regular and unlabored, abdomen soft and non distended. Denies pain, nausea or cramping. Resting on left side comfortably. documented in this encounter [facility] 01-11-2024 Nurse Note Patient received in phase II via cart in left lateral position, eyes open, alert and oriented x 3, skin warm and dry, respirations regular and unlabored, abdomen soft and non distended. Denies pain, nausea or cramping. Resting on left side comfortably. [facility] 01-11-2024 History and physical note PROCEDURAL SEDATION HISTORY AND PHYSICAL EXAM SERVICE DATE: 01/11/2024 SERVICE TIME: 8:09 AM Subjective HPI: This is a 58 year old female who presents for screening colonoscopy PAST ANESTHESIA HISTORY: No history of adverse event PAST MEDICAL HISTORY No date: Female infertility of unspecified origin Comment: Female infertility No date: Hemorrhage of gastrointestinal tract, unspecified No date: PMH - PAST MEDICAL HISTORY OF Comment: kidney stones No date: Unspecified , without mention of complication, unspecified PAST SURGICAL HISTORY 01/07/2012: COLONOSCOPY FLX DX W/COLLJ SPEC WHEN PFRMD Comment: Colonoscopy No date: CURETTAGE No date: I&D THYROGLOSSAL DUCT CYST Comment: 202202/26/2015: LAPAROSCOPY ENTEROLYSIS SEPARATE PROCEDURE 08/15/2004: PAST SURGICAL HISTORY OF Comment: appendectomy, laparoscopy No date: SALPINGECTOMY Comment: left No date: [place] ECTOPIC ABDL Prior to Admission medications as of 01/11/24 0736 Medication Sig Last Dose Taking ESTRADIOL ORAL Take by mouth. Estriold 2mg/ Estradiol 0.25mg/ estrone 0.25/ DHEA 5mg/ testosterone 0.5mg/ progesterone 200mg BELLA 01/10/2024 Yes Magnesium Glycinate 100 mg tab 01/10/2024 Yes ergocalciferol, vitamin D2, (VITAMIN D2 ORAL) Take by mouth. 01/10/2024 Yes Iodine liqd 01/10/2024 Yes MULTIVITAMIN TAB Take one(1) tablet daily. 01/10/2024 Yes EPINEPHrine (EPIPEN) 0.3 mg/0.3 mL auto-injector USE DIRECTED NEEDED FOR ALLERGIC REACTION Unknown DOCOSAHEXANOIC ACID/EPA (FISH OIL ORAL) Take by mouth. 01/05/2024 ALLERGIES Allergen Reactions Codeine Intolerance, GI Upset Objective PHYSICAL EXAM: The remainder of the physical exam is noncontributory. AIRWAY: patent LUNGS: CTAB CARDIAC: , RR Assessment/Plan ASA Class: Active Problems: * No active hospital problems. * Resolved Problems: * No resolved hospital problems. * Medication and Non-Pharmacologic VTE Prophylaxis/Anticoagulants VTE Prophylaxis: NA Provisional Diagnosis/Treatment Plan: Proceed with screening colonoscopy SIGNATURE: Gera Francois DO PATIENT NAME: Nicole Cadena DATE: January 11, 2024 TIME: 8:09 AM [facility] 01-11-2024 History and physical note PROCEDURAL SEDATION HISTORY AND PHYSICAL EXAM SERVICE DATE: 01/11/2024 SERVICE TIME: 8:09 AM Subjective HPI: This is a 58 year old female who presents for screening colonoscopy PAST ANESTHESIA HISTORY: No history of adverse event PAST MEDICAL HISTORY No date: Female infertility of unspecified origin Comment: Female infertility No date: Hemorrhage of gastrointestinal tract, unspecified No date: PMH - PAST MEDICAL HISTORY OF Comment: kidney stones No date: Unspecified , without mention of complication, unspecified PAST SURGICAL HISTORY 01/07/2012: COLONOSCOPY FLX DX W/COLLJ SPEC WHEN PFRMD Comment: Colonoscopy No date: CURETTAGE No date: I&D THYROGLOSSAL DUCT CYST Comment: 202202/26/2015: LAPAROSCOPY ENTEROLYSIS SEPARATE PROCEDURE 08/15/2004: PAST SURGICAL HISTORY OF Comment: appendectomy, laparoscopy No date: SALPINGECTOMY Comment: left No date: [place] ECTOPIC ABDL Prior to Admission medications as of 01/11/24 0736 Medication Sig Last Dose Taking ESTRADIOL ORAL Take by mouth. Estriold 2mg/ Estradiol 0.25mg/ estrone 0.25/ DHEA 5mg/ testosterone 0.5mg/ progesterone 200mg BELLA 01/10/2024 Yes Magnesium Glycinate 100 mg tab 01/10/2024 Yes ergocalciferol, vitamin D2, (VITAMIN D2 ORAL) Take by mouth. 01/10/2024 Yes Iodine liqd 01/10/2024 Yes MULTIVITAMIN TAB Take one(1) tablet daily. 01/10/2024 Yes EPINEPHrine (EPIPEN) 0.3 mg/0.3 mL auto-injector USE DIRECTED NEEDED FOR ALLERGIC REACTION Unknown DOCOSAHEXANOIC ACID/EPA (FISH OIL ORAL) Take by mouth. 01/05/2024 ALLERGIES Allergen Reactions Codeine Intolerance, GI Upset Objective PHYSICAL EXAM: The remainder of the physical exam is noncontributory. AIRWAY: patent LUNGS: CTAB CARDIAC: , RR Assessment/Plan ASA Class: Active Problems: * No active hospital problems. * Resolved Problems: * No resolved hospital problems. * Medication and Non-Pharmacologic VTE Prophylaxis/Anticoagulants VTE Prophylaxis: NA Provisional Diagnosis/Treatment Plan: Proceed with screening colonoscopy SIGNATURE: Gera Francois DO PATIENT NAME: Nicole Cadena DATE: January 11, 2024 TIME: 8:09 AM documented in this encounter [facility] 01-03-[address] Cleve Hanson is okay with proceeding in [place] with the colonoscopy. The schedulers should call you later today or tomorrow. Yenifer Hassan APRN.YINA [facility] 01-03-[address] Cleve Hanson is okay with proceeding in [place] with the colonoscopy. The schedulers should call you later today or tomorrow. Yenifer Hassan APRN.YINA documented in this encounter [facility] 01-03-2024 Nurse Note This Nurse reviewed and provided patient with copy of written instructions for colonoscopy using [employer]. Patient is to hold fish oil for 5 days prior to procedure. The patient verbalized understanding and was given a number for questions. Harini Arriaza RN January 03, 2024 11:51 AM [facility] 01-03-2024 Nurse Note This Nurse reviewed and provided patient with copy of written instructions for colonoscopy using [employer]. Patient is to hold fish oil for 5 days prior to procedure. The patient verbalized understanding and was given a number for questions. Harini Arriaza RN January 03, 2024 11:51 AM REVIEW OF SYSTEMS: General: The patient denies fatigue, denies weight loss, denies weight gain, denies feeling hot, and denies feelings of cold. Eyes: The patient denies glaucoma, denies eye injury/surgery, does not wear glasses or contacts. Ear/Nose/Throat: The patient denies allergies, denies hayfever, denies ear infections, and denies bloody noses. Cardiovascular: The patient denies chest pain, denies heart disease, denies high blood pressure,denies cardiac stent, denies prior heart attack, denies irregular heart beat, denies high cholesterol, denies poor circulation, denies heart failure, other cardiac issues, denies claudication, denies cold feet, denies peripheral arterial stent. Respiratory: The patient denies tuberculosis, denies pneumonia, denies frequent cough, denies pulmonary embolism, denies shortness of breath, and denies coughing up blood. Gastrointestinal: The patient denies difficulty swallowing, denies acid reflux, denies ulcers, denies vomiting, denies jaundice/hepatitis, denies gallbladder problems, denies black or tarry stools, denies hemorrhoids, denies bleeding from rectum, denies diverticulitis, denies constipation, denies diarrhea, denies loss of stool control, and denies hernias. Kidney/Bladder: The patient denies kidney stones, denies urine infections, and denies bloody urine. Skin: The patient denies a history of skin cancer, denies bleeding/changing moles, and denies a history of skin rash. Neurologic: The patient denies a history of epilepsy/convulsions, denies headaches, denies head/spinal injuries, and denies stroke/TIA. Psychiatric: The patient denies psychiatric medications, denies depression, and denies voices, denies substance abuse. Endocrine: The patient denies thyroid disorders, denies diabetes, and denies hormonal problems. Hematologic: The patient denies a history of bruising, denies bleeding, and denies anemia, denies blood clots. Infections: The patient denies a history of measles and mumps, denies rheumatic fever, and denies sexually transmitted diseases. Musculoskeletal: The patient denies back pain/injury, denies back problems, denies sciatica, denies knee/foot trouble, denies arthritis, or denies gout. When was patient's last Mammogram screening? 01/03/2024 Last Colonoscopy: 01/07/2012 Edna Panda RN documented in this encounter [facility] 01-03-2024 Nurse Note REVIEW OF SYSTEMS: General: The patient denies fatigue, denies weight loss, denies weight gain, denies feeling hot, and denies feelings of cold. Eyes: The patient denies glaucoma, denies eye injury/surgery, does not wear glasses or contacts. Ear/Nose/Throat: The patient denies allergies, denies hayfever, denies ear infections, and denies bloody noses. Cardiovascular: The patient denies chest pain, denies heart disease, denies high blood pressure,denies cardiac stent, denies prior heart attack, denies irregular heart beat, denies high cholesterol, denies poor circulation, denies heart failure, other cardiac issues, denies claudication, denies cold feet, denies peripheral arterial stent. Respiratory: The patient denies tuberculosis, denies pneumonia, denies frequent cough, denies pulmonary embolism, denies shortness of breath, and denies coughing up blood. Gastrointestinal: The patient denies difficulty swallowing, denies acid reflux, denies ulcers, denies vomiting, denies jaundice/hepatitis, denies gallbladder problems, denies black or tarry stools, denies hemorrhoids, denies bleeding from rectum, denies diverticulitis, denies constipation, denies diarrhea, denies loss of stool control, and denies hernias. Kidney/Bladder: The patient denies kidney stones, denies urine infections, and denies bloody urine. Skin: The patient denies a history of skin cancer, denies bleeding/changing moles, and denies a history of skin rash. Neurologic: The patient denies a history of epilepsy/convulsions, denies headaches, denies head/spinal injuries, and denies stroke/TIA. Psychiatric: The patient denies psychiatric medications, denies depression, and denies voices, denies substance abuse. Endocrine: The patient denies thyroid disorders, denies diabetes, and denies hormonal problems. Hematologic: The patient denies a history of bruising, denies bleeding, and denies anemia, denies blood clots. Infections: The patient denies a history of measles and mumps, denies rheumatic fever, and denies sexually transmitted diseases. Musculoskeletal: The patient denies back pain/injury, denies back problems, denies sciatica, denies knee/foot trouble, denies arthritis, or denies gout. When was patient's last Mammogram screening? 01/03/2024 Last Colonoscopy: 01/07/2012 Edna Panda RN [facility] 01-03-2024 History of Presen t illness Narrative HISTORY AND PHYSICAL Nicole Cadena : 1965 REFERRING PHYSICIAN: Roxanna Good[address] [facility] [address] CHIEF COMPLAINT: Patient presents with: Consult: COLONOSCOPY HPI: Nicole is a 58 year old female referred for endoscopy. Nicole notes due for screening colonoscopy. Patient denies any change in bowel habits, weight changes, blood in stools, black tarry stools or abdominal pain. Denies family history of colon issues. Nicole notes denies upper GI complaints. Nicole has a history of small bowel obstruction due to adhesions in 2014. Nicole has undergone prior endoscopy. Last colonoscopy was 12/[address] Arguello at [facility]. Sedation received:Meperidine 65 mg IV, Midazolam 3.5 mg IV Impression: - Non-bleeding internal hemorrhoids. Current Outpatient Medications Medication Sig ESTRADIOL ORAL Take by mouth. Estriold 2mg/ Estradiol 0.25mg/ estrone 0.25/ DHEA 5mg/ testosterone 0.5mg/ progesterone 200mg BELLA Magnesium Glycinate 100 mg tab EPINEPHrine (EPIPEN) 0.3 mg/0.3 mL auto-injector USE DIRECTED NEEDED FOR ALLERGIC REACTION ergocalciferol, vitamin D2, (VITAMIN D2 ORAL) Take by mouth. Iodine liqd DOCOSAHEXANOIC ACID/EPA (FISH OIL ORAL) Take by mouth. MULTIVITAMIN TAB Take one(1) tablet daily. QUERCETIN DIHYDRATE, BULK, MISC topical cream metered-dose dev luz Hormone replacement cream (Patient not taking: Reported on 12/29/2023) No current facility-administered medications for this visit. ALLERGIES: Codeine PAST MEDICAL HISTORY No date: Female infertility of unspecified origin Comment: Female infertility No date: Hemorrhage of gastrointestinal tract, unspecified No date: PMH - PAST MEDICAL HISTORY OF Comment: kidney stones No date: Unspecified , without mention of complication, unspecified PAST SURGICAL HISTORY 01/07/2012: COLONOSCOPY FLX DX W/COLLJ SPEC WHEN PFRMD Comment: Colonoscopy No date: CURETTAGE No date: I&D THYROGLOSSAL DUCT CYST Comment: 202202/26/2015: LAPAROSCOPY ENTEROLYSIS SEPARATE PROCEDURE 08/15/2004: PAST SURGICAL HISTORY OF Comment: appendectomy, laparoscopy No date: SALPINGECTOMY Comment: left No date: [place] ECTOPIC ABDL FAMILY HISTORY Problem Relation Age of Onset Cancer Father Thyroid Hypertension Sister Hyperlipidemia Sister Hypertension Brother Hyperlipidemia Brother Social History Tobacco Use Smoking status: Never Smokeless tobacco: Never Vaping Use Vaping status: Never Used Substance Use Topics Alcohol use: No Drug use: No REVIEW OF SYMPTOMS: The review of systems data was entered by the nurse and reviewed by me Nursing Notes: Edna Panda RN 01/03/2024 11:10 AM Signed REVIEW OF SYSTEMS: General: The patient denies fatigue, denies weight loss, denies weight gain, denies feeling hot, and denies feelings of cold. Eyes: The patient denies glaucoma, denies eye injury/surgery, does not wear glasses or contacts. Ear/Nose/Throat: The patient denies allergies, denies hayfever, denies ear infections, and denies bloody noses. Cardiovascular: The patient denies chest pain, denies heart disease, denies high blood pressure,denies cardiac stent, denies prior heart attack, denies irregular heart beat, denies high cholesterol, denies poor circulation, denies heart failure, other cardiac issues, denies claudication, denies cold feet, denies peripheral arterial stent. Respiratory: The patient denies tuberculosis, denies pneumonia, denies frequent cough, denies pulmonary embolism, denies shortness of breath, and denies coughing up blood. Gastrointestinal: The patient denies difficulty swallowing, denies acid reflux, denies ulcers, denies vomiting, denies jaundice/hepatitis, denies gallbladder problems, denies black or tarry stools, denies hemorrhoids, denies bleeding from rectum, denies diverticulitis, denies constipation, denies diarrhea, denies loss of stool control, and denies hernias. Kidney/Bladder: The patient denies kidney stones, denies urine infections, and denies bloody urine. Skin: The patient denies a history of skin cancer, denies bleeding/changing moles, and denies a history of skin rash. Neurologic: The patient denies a history of epilepsy/convulsions, denies headaches, denies head/spinal injuries, and denies stroke/TIA. Psychiatric: The patient denies psychiatric medications, denies depression, and denies voices, denies substance abuse. Endocrine: The patient denies thyroid disorders, denies diabetes, and denies hormonal problems. Hematologic: The patient denies a history of bruising, denies bleeding, and denies anemia, denies blood clots. Infections: The patient denies a history of measles and mumps, denies rheumatic fever, and denies sexually transmitted diseases. Musculoskeletal: The patient denies back pain/injury, denies back problems, denies sciatica, denies knee/foot trouble, denies arthritis, or denies gout. When was patient's last Mammogram screening? 01/03/2024 Last Colonoscopy: 01/07/2012 Edna Panda RN PHYSICAL EXAMINATION: General: The patient is 58 year old, female well nourished, well hydrated in no acute distress. The patient is oriented to time, place, and person. VITALS: Blood pressure 112/70, pulse 90, temperature 36.7 C (98 F), height 161.3 cm (5' 3.5"), weight 67.4 kg (148 lb 9.6 oz), last menstrual period 06/25/2016, SpO2 100%. Body mass index is 25.91 kg/m . HEENT: Normal cephalic, ataumatic, pupils are equally round, sclera are anicteric, mucous membranes are moist, oropharynx is clear. Neck has no masses, asymmetry or lymphadenopathy. Respiratory: Clear to auscultation and percussion. Normal respiratory excursion and pattern. Cardiac: Examination is regular rate and rhythm. Normal S1/S2 Abdominal exam: Soft, nontender, with no palpable masses. No hepatosplenomegaly. No palpable hernias. Extremities: no clubbing, cyanosis or edema. No adenopathy. LABORATORY VALUES: As Noted RADIOLOGIC STUDIES: As Noted Assessment IMPRESSION: Screen for colon cancer PLAN: I have reviewed my findings with the surgeon. Will plan for lower endoscopy. We discussed the risks and benefits of the planned endoscopy. I have informed the patient that complications can occur including failure to complete the endoscopy and perforation. Nicole had the opportunity to ask questions concerning the planned endoscopy. My staff has also explained the procedure to the patient in understandable terms and has given the patient printed material concerning the procedure. Nicole freely consents to surgery. I plan to use GoLytely bowel preparation Nicole is instructed to hold fish oil for 5 days I have explained to the patient the difference between IV conscious sedation and MAC anesthesia - and I have offered either, according to the patient's wishes. I have explained that with IV conscious sedation there is no anesthesia provider available and therefore there is a limitation of the amount of IV medications that can be given and that the patient may wake up in the middle of the procedure and/or experience pain/discomfort during the procedure. Further discussion was done and the patient was given the opportunity to ask questions and all questions were answered. Nicole chooses IV conscious sedation Nicole was counseled that if there are changes in his/her medical condition, to let the office know if surgery should proceed. If there are changes in patient's medical condition from time of this encounter to the day of the procedure that preclude anesthesia, patient may have procedure cancelled for patient's safety. Diagnoses: (Z12.11) Screen for colon cancer (primary encounter diagnosis) Portions of this documentation were copied and pasted from previous office visit notes in order to provide a cohesive continuity of the history. The note has been reviewed and edited and updated as necessary. Yenifer Vines APRN.YINA documented in this encounter [facility] 01-03-2024 Note HNO ID: [id number] Author: YENIFER VINES APRN.CNP Service: ? Author Type: Nurse Practitioner Type: Progress Notes Filed: 01/03/2024 13:42 Note Text: HISTORY AND PHYSICAL Nicole Cadena : 1965 REFERRING PHYSICIAN: Roxanna Chapa [address] [facility] [address] CHIEF COMPLAINT: Patient presents with: Consult: COLONOSCOPY HPI: Nicole is a 58 year old female referred for endoscopy. Nicole notes due for screening colonoscopy. Patient denies any change in bowel habits, weight changes, blood in stools, black tarry stools or abdominal pain. Denies family history of colon issues. Nicole notes denies upper GI complaints. Nicole has a history of small bowel obstruction due to adhesions in 2014. Nicole has undergone prior endoscopy. Last colonoscopy was 12/[address] Arguello at [facility]. Sedation received:Meperidine 65 mg IV, Midazolam 3.5 mg IV Impression: - Non-bleeding internal hemorrhoids. Current Outpatient Medications Medication Sig ESTRADIOL ORAL Take by mouth. Estriold 2mg/ Estradiol 0.25mg/ estrone 0.25/ DHEA 5mg/ testosterone 0.5mg/ progesterone 200mg BELLA Magnesium Glycinate 100 mg tab EPINEPHrine (EPIPEN) 0.3 mg/0.3 mL auto-injector USE DIRECTED NEEDED FOR ALLERGIC REACTION ergocalciferol, vitamin D2, (VITAMIN D2 ORAL) Take by mouth. Iodine liqd DOCOSAHEXANOIC ACID/EPA (FISH OIL ORAL) Take by mouth. MULTIVITAMIN TAB Take one(1) tablet daily. QUERCETIN DIHYDRATE, BULK, MISC topical cream metered-dose dev luz Hormone replacement cream (Patient not taking: Reported on 12/29/2023) No current facility-administered medications for this visit. ALLERGIES: Codeine PAST MEDICAL HISTORY No date: Female infertility of unspecified origin Comment: Female infertility No date: Hemorrhage of gastrointestinal tract, unspecified No date: PMH - PAST MEDICAL HISTORY OF Comment: kidney stones No date: Unspecified , without mention of complication, unspecified PAST SURGICAL HISTORY 01/07/2012: COLONOSCOPY FLX DX W/COLLJ SPEC WHEN PFRMD Comment: Colonoscopy No date: CURETTAGE No date: IANDD THYROGLOSSAL DUCT CYST Comment: 202202/26/2015: LAPAROSCOPY ENTEROLYSIS SEPARATE PROCEDURE 08/15/2004: PAST SURGICAL HISTORY OF Comment: appendectomy, laparoscopy No date: SALPINGECTOMY Comment: left No date: [place] ECTOPIC ABDL FAMILY HISTORY Problem Relation Age of Onset Cancer Father Thyroid Hypertension Sister Hyperlipidemia Sister Hypertension Brother Hyperlipidemia Brother Social History Tobacco Use Smoking status: Never Smokeless tobacco: Never Vaping Use Vaping status: Never Used Substance Use Topics Alcohol use: No Drug use: No REVIEW OF SYMPTOMS: The review of systems data was entered by the nurse and reviewed by nv Nursing Notes: Edna Panda RN 01/03/2024 11:10 AM Signed REVIEW OF SYSTEMS: General: The patient denies fatigue, denies weight loss, denies weight gain, denies feeling hot, and denies feelings of cold. Eyes: The patient denies glaucoma, denies eye injury/surgery, does not wear glasses or contacts. Ear/Nose/Throat: The patient denies allergies, denies hayfever, denies ear infections, and denies bloody noses. Cardiovascular: The patient denies chest pain, denies heart disease, denies high blood pressure,denies cardiac stent, denies prior heart attack, denies irregular heart beat, denies high cholesterol, denies poor circulation, denies heart failure, other cardiac issues, denies claudication, denies cold feet, denies peripheral arterial stent. Respiratory: The patient denies tuberculosis, denies pneumonia, denies frequent cough, denies pulmonary embolism, denies shortness of breath, and denies coughing up blood. Gastrointestinal: The patient denies difficulty swallowing, denies acid reflux, denies ulcers, denies vomiting, denies jaundice/hepatitis, denies gallbladder problems, denies black or tarry stools, denies hemorrhoids, denies bleeding from rectum, denies diverticulitis, denies constipation, denies diarrhea, denies loss of stool control, and denies hernias. Kidney/Bladder: The patient denies kidney stones, denies urine infections, and denies bloody urine. Skin: The patient denies a history of skin cancer, denies bleeding/changing moles, and denies a history of skin rash. Neurologic: The patient denies a history of epilepsy/convulsions, denies headaches, denies head/spinal injuries, and denies stroke/TIA. Psychiatric: The patient denies psychiatric medications, denies depression, and denies voices, denies substance abuse. Endocrine: The patient denies thyroid disorders, denies diabetes, and denies hormonal problems. Hematologic: The patient denies a history of bruising, denies bleeding, and denies anemia, denies blood clots. Infections: The patient denies a history of measles and mumps, denies rheumatic fever, an (more content not included)... [facility] 01-03-2024 Note Formatting of this n ote might be different from the original. January 03, 2024 PID: [id number] Nicole KNuno Cadena [address] [place] [address] Dear Ms. Cadena, We are pleased to inform you that the results of your recent breast imaging exam on 01/03/2024 are normal. Breast tissue can be either dense or not dense. Dense tissue makes it harder to find breast cancer on a mammogram and also raises the risk of developing breast cancer. Your breast tissue is not dense. Talk to your healthcare provider about breast density, risks for breast cancer, and your individual situation. Early detection of cancer is very important. We also understand recommendations regarding breast cancer screening are controversial. Please discuss with your primary care provider which strategy is best for you and whether a mammogram is right for you. Your imaging studies and report will be kept on file at [facility] as part of your permanent medical record and are available for your continuing care. Thank you for allowing us to help in meeting your health care needs. Sincerely, Dr. Sood Interpreting Radiologist [facility] (Normal over 40) [facility] 01-03-2024 Miscellaneous Notes January 03, 2024 PID: [id number] Nicole Cadena [address] [place] [address] Dear Ms. Cadena, We are pleased to inform you that the results of your recent breast imaging exam on 01/03/2024 are normal. Breast tissue can be either dense or not dense. Dense tissue makes it harder to find breast cancer on a mammogram and also raises the risk of developing breast cancer. Your breast tissue is not dense. Talk to your healthcare provider about breast density, risks for breast cancer, and your individual situation. Early detection of cancer is very important. We also understand recommendations regarding breast cancer screening are controversial. Please discuss with your primary care provider which strategy is best for you and whether a mammogram is right for you. Your imaging studies and report will be kept on file at [facility] as part of your permanent medical record and are available for your continuing care. Thank you for allowing us to help in meeting your health care needs. Sincerely, Dr. Sood Interpreting Radiologist [facility] (Normal over 40) documented in this encounter [facility] 01-03-2024 History of Presen t illness Narrative Radiology Service Progress Note PATIENT NAME: Nicole Cadena DATE OF SERVICE: January 03, 2024 TIME: 9:55 AM PATIENT IDENTITY VERIFICATION COMPLETED USING TWO (2) IDENTIFIERS: Name and Date of confirmed by patient verbally. FALL SCREENING: Has the patient had 2 falls in the last year or 1 fall with injury or currently using an Ambulatory Assistive Device (Walker, Cane, Wheelchair, Crutches, etc.)? No PATIENT GENDER DATA: Female. status: : No status: NO. PATIENT RELEVANT IMPLANT DATA REVIEWED: Not Applicable PATIENT PRESENTS WITH AN IMPLANTABLE OR ATTACHED CHEF MANAGER: No RADIOLOGY DEPARTMENT: Mammography PERIPHERAL IV DATA: Not applicable SIGNED BY: Quin Mejias January 03, 2024 9:55 AM documented in this encounter [facility] 01-03-2024 Miscellaneous Notes Encounter addended by: Praveen Felix Mammo Tech on: 01/03/2024 9:56 AM Actions taken: Clinical Note Signed documented in this encounter [facility] 01-03-2024 Note Encounter addended b y: Praveen Felix Mammo Tech on: 01/03/2024 9:56 AM Actions taken: Clinical Note Signed [facility] 01-03-2024 Note HNO ID: [id number] Author: PRAVEEN FELIX Mammo Tech Service: ? Author Type: Technologist Type: Progress Notes Filed: 01/03/2024 09:56 Note Text: Radiology Service Progress Note PATIENT NAME: Nicole Cadena DATE OF SERVICE: January 03, 2024 TIME: 9:55 AM PATIENT IDENTITY VERIFICATION COMPLETED USING TWO (2) IDENTIFIERS: Name and Date of confirmed by patient verbally. FALL SCREENING: Has the patient had 2 falls in the last year or 1 fall with injury or currently using an Ambulatory Assistive Device (Walker, Cane, Wheelchair, Crutches, etc.)? No PATIENT GENDER DATA: Female. status: : No status: NO. PATIENT RELEVANT IMPLANT DATA REVIEWED: Not Applicable PATIENT PRESENTS WITH AN IMPLANTABLE OR ATTACHED CHEF MANAGER: No RADIOLOGY DEPARTMENT: Mammography PERIPHERAL IV DATA: Not applicable SIGNED BY: Praveen Felix [address] January 03, 2024 9:55 AM [facility] 12-29-2023 History of Presen t illness Narrative Childcare Worker offered: Patient accepts, visit chaperoned by Cristel Godfrey MA. Nicole is a 57 year old who presents for an annual gynecologic exam without complaints. Postmenopausal: Yes since age 51 HRT use: Yes, Bella How lon mo. 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: Sexual Activity: Yes; Male Contraception: None PAST MEDICAL HISTORY No date: Female infertility of unspecified origin Comment: Female infertility No date: Hemorrhage of gastrointestinal tract, unspecified No date: PMH - PAST MEDICAL HISTORY OF Comment: kidney stones No date: Unspecified , without mention of complication, unspecifiedPAST SURGICAL HISTORY 01/07/2012: COLONOSCOPY FLX DX W/COLLJ SPEC WHEN PFRMD Comment: Colonoscopy No date: CURETTAGE No date: I&D THYROGLOSSAL DUCT CYST Comment: 202202/26/2015: LAPAROSCOPY ENTEROLYSIS SEPARATE PROCEDURE 08/15/2004: PAST SURGICAL HISTORY OF Comment: appendectomy, laparoscopy No date: SALPINGECTOMY Comment: left No date: [place] ECTOPIC ABDL FAMILY HISTORY Problem Relation Age of Onset Cancer Father Thyroid Hypertension Sister Hyperlipidemia Sister Hypertension Brother Hyperlipidemia Brother SOCIAL HISTORY Social History Tobacco Use Smoking status: Never Smokeless tobacco: Never Vaping Use Vaping Use: Never used Substance Use Topics Alcohol use: No Drug use: No REVIEW OF SYSTEMS Abdomen: No abdominal pain, nausea, vomiting, diarrhea, or constipation. No bloating, early satiety, indigestion, or increased flatulence. Bladder: No dysuria, gross hematuria, urinary frequency, urinary urgency, or incontinence Breast: No breast lumps, nipple d/c, overlying skin changes, redness or skin retraction Allergies and current medication updated:Yes EXAM: BP 102/60 Ht 5' 3.583" (1.62m) Wt 148 lb (67.1kg) LMP 06/25/2016 BMI 25.74 kg/(m^2). GENERAL: pleasant, female in no apparent distress HEENT: Normocephalic, atraumatic, mucus membranes moist, and no lesions NECK: Supple, full range of motion, no adenopathy, and thyroid normal DERMATOLOGY: Normal, without lesions, non-icteric, and non-hirsute BREAST: soft, non-tender, symmetric, no dominant mass, normal nipple-areolar complex, no lymphadenopathy, and no nipple discharge CHEST: Normal inspiratory effort ABDOMEN: soft, non-tender, and no masses PELVIC: external genitalia normal, normal Bartholin's glands, urethra, [place]'s glands, no vulvar lesions, no cervical lesions, good vaginal support, physiologic discharge present, normal appearing perineal body and perianal region BIMANUAL: uterus normal size, shape and consistency, no adnexal masses, and non-tender NEURO: alert and oriented x3,exam grossly non-focal EXTREMITIES: normal ASSESSMENT/PLAN: 1) Health maintenance: Pap done with HPV. Mammogram ordered 2) Follow up one year or sooner as needed 3) Colonoscopy Rafael Lozano MD documented in this encounter [facility] 04-12-2023 Evaluation + Plan note Future Scheduled TestsBasic Metabolic Panel 04/12/23Complete Blood Count 03/05/23[facility] Send out (Blood Specimens) 09/02/22 [facility] 04-12-2023 Evaluation + Plan note Future Scheduled TestsBasic Metabolic Panel 04/12/23Complete Blood Count 03/05/23 [facility] Monetrevon Yun 01-12-2023 Hospital Discharg e instructions Patient Education 01/12/2023 12:32:40 Laceration, Face: Suture or Tape Face Laceration: Stitches or Tape A laceration is a cut through the skin. This will require stitches if it is deep. Minor cuts may be treated with surgical tape. Home care Your healthcare provider may prescribe an antibiotic. This is to help prevent infection. Follow all instructions for taking this medicine. Take the medicine every day until it is gone or you are told to stop. You should not have any left over. The healthcare provider may prescribe medicines for pain. Follow instructions for taking them. Follow the healthcare provider s instructions on how to care for the cut. Wash your hands with soap and warm water before and after caring for the cut. This helps prevent infection. If a bandage was applied and it becomes wet or dirty, replace it. Otherwise, leave it in place for the first 24 hours, then change it once a day or as directed. If stitches were used, clean the wound daily: oAfter removing the bandage, wash the area with soap and water. Use a wet cotton swab to loosen and remove any blood or crust that forms. oAfter cleaning, keep the wound clean and dry. Talk with your healthcare provider before putting any antibiotic ointment on the wound. Reapply a fresh bandage. oYou may remove the bandage to shower as usual after the first 24 hours, but don't soak the area in water (no swimming) until the sutures are removed. If surgical tape was used, keep the area clean and dry. If it becomes wet, blot it dry with a towel. Most facial skin wounds heal without problems. But an infection sometimes occurs despite proper treatment. Watch for the signs of infection listed below. Follow-up care Follow up with your healthcare provider as advised. Be sure to return for removal of the stitches as directed. Ask your provider how long stitches should remain in place. If surgical tape closures were used, you may remove them yourself when your provider recommends if they have not fallen off on their own. When to seek medical advice Call your healthcare provider right away if any of these occur: Wound bleeding not controlled by direct pressure Signs of infection, including increasing pain in the wound, increasing wound redness or swelling, or pus or bad odor coming from the wound Fever of 100.4 F (38 C) or higher, or as directed by your healthcare provider Stitches come apart or fall out or surgical tape falls off before 5 days Wound edges reopen Wound changes colors Numbness around the wound [id number] [employer]. [address] [place] [address]. All rights reserved. This information is not intended as a substitute for professional medical care. Always follow your healthcare professional's instructions. Follow Up Care 01/12/2023 11:49:38 With:LUIS RAMIREZ DO Address: [address] [place] [phone] When:2-4 days [facility] 01-12-2023 Emergency department Discharge summary Discharge Instructions Thank you for allowing [facility] to assist you with your healthcare needs. The following is important discharge information regarding your hospital visit. Diagnosis from Today's Visit Facial laceration What to Do Next Instructions from Your Care Team sutures out in 5-7 days No qualifying data available. Post Acute Orders No qualifying data available. You Need to Schedule the Following Appointments Follow Up with LUIS RAMIREZ DO When Within 2-4 days Where: [address] [place] [phone] Allergies codeine (NAUSEA) Medications Please ask your primary doctor or pharmacist before taking any other medication not listed, including over the counter drugs, herbal medications, vitamins and or supplements as they may interact with your home medications. What How Much When Instructions Last Dose Unchanged acetaminophen-hydrocodone ([place] 325- 5 mg oral tablet) 1 tab(s) by mouth Every 4 hours as needed for as needed for pain Duration: 7 Days Unchanged EPINEPHrine (EpiPen 2-Etienne 0.3 mg injectable kit) 0.3 Milligram Intramuscular As Directed as needed for Allergic reaction may repeat if necessary after 5 minutes, go to the emergency department if used. Unchanged herbal/ nutritional product 1 CAP by mouth Every day CURAMED Unchanged magnesium gluconate (magnesium gluconate 250 mg oral tablet) 2 tab(s) by mouth Daily at bedtime Unchanged Misc Medication hormone replacement cream Unchanged multivitamin (Multivitamin) 1 tab(s) by mouth Every day Unchanged omega-3 polyunsaturated fatty acids (Fish Oil 1000 mg oral capsule) 1 cap by mouth Once a day Please take this list to your next doctor s visit. Bring all medications you take, including over the counter medications, herbals and other supplements with you to your doctor s visit. Patients and families are reminded to discard old lists and to update any records with all medication providers or retail pharmacies. Education Materials Face Laceration: Stitches or Tape A laceration is a cut through the skin. This will require stitches if it is deep. Minor cuts may be treated with surgical tape. Home care Your healthcare provider may prescribe an antibiotic. This is to help prevent infection. Follow all instructions for taking this medicine. Take the medicine every day until it is gone or you are told to stop. You should not have any left over. The healthcare provider may prescribe medicines for pain. Follow instructions for taking them. Follow the healthcare provider s instructions on how to care for the cut. Wash your hands with soap and warm water before and after caring for the cut. This helps prevent infection. If a bandage was applied and it becomes wet or dirty, replace it. Otherwise, leave it in place for the first 24 hours, then change it once a day or as directed. If stitches were used, clean the wound daily: oAfter removing the bandage, wash the area with soap and water. Use a wet cotton swab to loosen and remove any blood or crust that forms. oAfter cleaning, keep the wound clean and dry. Talk with your healthcare provider before putting any antibiotic ointment on the wound. Reapply a fresh bandage. oYou may remove the bandage to shower as usual after the first 24 hours, but don't soak the area in water (no swimming) until the sutures are removed. If surgical tape was used, keep the area clean and dry. If it becomes wet, blot it dry with a towel. Most facial skin wounds heal without problems. But an infection sometimes occurs despite proper treatment. Watch for the signs of infection listed below. Follow-up care Follow up with your healthcare provider as advised. Be sure to return for removal of the stitches as directed. Ask your provider how long stitches should remain in place. If surgical tape closures were used, you may remove them yourself when your provider recommends if they have not fallen off on their own. When to seek medical advice Call your healthcare provider right away if any of these occur: Wound bleeding not controlled by direct pressure Signs of infection, including increasing pain in the wound, increasing wound redness or swelling, or pus or bad odor coming from the wound Fever of 100.4 F (38 C) or higher, or as directed by your healthcare provider Stitches come apart or fall out or surgical tape falls off before 5 days Wound edges reopen Wound changes colors Numbness around the wound [id number] [employer]. [address] [place] [address]. All rights reserved. This information is not intended as a substitute for professional medical care. Always follow your healthcare professional's instructions. Additional Information VACCINATE! IT SAVES LIVES! Members of the community who have not yet received the COVID-19 vaccine and would like to receive it can visit one of [facility] vaccine clinics. There are many vaccine clinic locations within the [facility]. For locations and available times, please visit [email or web address] It is important to note that some COVID mobile vaccine clinics are held outdoors and may be canceled in rainy or stormy conditions. To learn more about pediatric vaccinations (ages 5-11), we invite you to visit the [facility] webpage. [email or web address] To learn more about the COVID-19 vaccine, we invite you to visit the CDC website for a list of frequently asked questions. https://www.cdc.gov/coronavirus/ 2019-ncov/vaccines/faq.html [facility] Access Instructions: Stay connected with your healthcare team and access your personal medical information anytime with the [facility] Portal. If you would like a full copy of your medical records please contact the [facility] Medical Records Department Wednesday through Wednesday between 8a.m. and 4:30p.m. Please follow the directions below to access the portal: 1.Access the email account you provided upon registration to the hospital.2.Look for an invitation email from [facility].3.Open the email and access the invitation link: Accept Invitation to [facility]4.Fill in the required buck to create your account. Sign into [email or web address] with your username and password that you created in the above steps to stay up to date. You can then view a summary of results, a summary of your visits, and the ability to download your summaries to your computer or send the information securely to a physician. Remember that your healthcare information is confidential, so carefully consider who you will allow to register on the [facility] Patient Portal for access to your information. You can also access the [facility] Patient Portal on the [employer]. Simply click on "Health Records" under "Health Data" and then click on the [employer] logo. HOW TO SAFELY DISPOSE OF PRESCRIPTION MEDICATIONS Please use one of the following methods to safely dispose of your unused medications. 1.Use a drug disposal kit: the drug disposal pouch allows you to safely discard your old and unused drugs. Ask your nurse to give you one when you are discharged.2.Visit a local take-back location: Many local pharmacies and police departments have programs that collect old and unwanted prescription drugs. Call your local pharmacy or go to http://Money360.Poq Studio/4N1Sz2u to find one close to you.3.Make use of household items: Use cat litter or old coffee grounds to dispose medications if other options are not available. Mix your drugs with these household products, seal them in an airtight container and throw it into the garbage. Call [facility]: [phone] to be sure your drugs can be disposed of in this way. Some medicines may require a different approach.4.Never flush your medications down the toilet. IF YOU HAVE BEEN PRESCRIBED AN OPIOIDS FOR PAIN If you have been prescribed an opioid (such as hydrocodone, oxycodone or morphine), it is critical to understand the possible side effects and risks of opioid pain medications. Even when taken as directed, opioids can have several side effects including: Tolerance, meaning you might need to take more of a medication for the same pain relief. Nausea, vomiting and/or constipation. Sleepiness, dizziness, dry mouth, confusion, depression or itching. Physical dependence, meaning you have withdrawal symptoms when a medication is stopped ? this can develop within a few days. KNOW YOUR RESPONSIBILITIES It is important to know exactly how much and how often to take the opioid pain medications you are prescribed. Never take opioids in higher amounts or more often than prescribed. Do not combine opioids with alcohol or other drugs that cause drowsiness, such as benzodiazepines, also known as benzos, including diazepam and alprazolam, muscle relaxants or sleep aids. Never sell or share prescription opioids. This is illegal. Store opioids in a secure place and out of reach of others (including children, family, friends and visitors). The last page(s) of this document has been signed and retained as a CHART COPY Signatures Patient Education Materials Laceration, Face: Suture or Tape Medication Leaflets My discharge plan and instructions have been reviewed and explained to me and I,NICOLE CADENA understand my current condition and have read and understand these discharge instructions. I have received a written copy of the plan/instructions. If I have questions, I am aware that I should contact my doctor. 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 Your health care provider may also give you more specific instructions. If you have problems or questions, contact your health care provider. What can I expect after the procedure? After the procedure, the following side effects are common: Pain or discomfort at the IV site. Nausea. Vomiting. Sore throat. Trouble concentrating. Feeling cold or chills. Weak or tired. Sleepiness and fatigue. Soreness and body aches. These side effects can affect parts of the body that were not involved in surgery. Follow these instructions at home: For at least 24 hours after the procedure: Have a responsible adult stay with you. It is important to have someone help care for you until you are awake and alert. Rest as needed. Do not: ?Participate in activities in which you could fall or become injured. ?Drive. ?Use heavy machinery. ?Drink alcohol. ?Take sleeping pills or medicines that cause drowsiness. ?Make important decisions or sign legal documents. ?Take care of children on your own. Eating and drinking Follow any instructions from your health care provider about eating or drinking restrictions. When you feel hungry, start by eating small amounts of foods that are soft and easy to digest (bland), such as toast. Gradually return to your regular diet. Drink enough fluid to keep your urine pale yellow. If you vomit, rehydrate by drinking water, juice, or clear broth. General instructions If you have sleep apnea, surgery and certain medicines can increase your risk for breathing problems. Follow instructions from your health care provider about wearing your sleep device: ?Anytime you are sleeping, including during daytime naps. ?While taking prescription pain medicines, sleeping medicines, or medicines that make you drowsy. Return to your normal activities as told by your health care provider. Ask your health care provider what activities are safe for you. Take pywn-uan-rdpclna and prescription medicines only as told by your health care provider. If you smoke, do not smoke without supervision. Keep all follow-up visits as told by your health care provider. This is important. Contact a health care provider if: You have nausea or vomiting that does not get better with medicine. You cannot eat or drink without vomiting. You have pain that does not get better with medicine. You are unable to pass urine. You develop a skin rash. You have a fever. You have redness around your IV site that gets worse. Get help right away if: You have difficulty breathing. You have chest pain. You have blood in your urine or stool, or you vomit blood. Summary After the procedure, it is common to have a sore throat or nausea. It is also common to feel tired. Have a responsible adult stay with you for the first 24 hours after general anesthesia. It is important to have someone help care for you until you are awake and alert. When you feel hungry, start by eating small amounts of foods that are soft and easy to digest (bland), such as toast. Gradually return to your regular diet. Drink enough fluid to keep your urine pale yellow. Return to your normal activities as told by your health care provider. Ask your health care provider what activities are safe for you. This information is not intended to replace advice given to you by your health care provider. Make sure you discuss any questions you have with your health care provider. Document Released: 08/09/2001 Document Revised: 05/06/2018 Document Reviewed: 12/17/2017 [employer] Patient Education 2020 [employer]. 01/07/2023 13:24:12 9 - AO Thyroidectomy, Care After (01-06-18)(CUSTOM) EXCISION THYROGLOSSAL DUCT CYST Care After Refer to this sheet in the next few weeks. These instructions provide you with general information on caring for yourself after you leave the hospital. Your treatment has been planned according to the most current medical practices available, but problems sometimes occur. Call your caregiver if you have any questions or concerns regarding your care of comfort HOME CARE INSTRUCTIONS 1. 1-3 days minimal activity then activity as tolerated. No heavy lifting for 3 weeks. 2. Regular diet. Advance diet as tolerated. 3. Keep area clean and dry. 4. Apply ice compresses intermittently for 24-48 hours. 5. If there is any odor or discharge, please call the office. 6. Continue with all mediations ordered at least until your seen. 7. Remain off work 1 week. FOR PATIENTS WHO HAVE HAD GENERAL ANESTHESIA: The medicine used to put you to sleep will be acting in your body for the next 24 hours, so you might feel a little sleepy. This feeling will slowly wear off. Because the medicine is still in your system, for the next 24 hours, the adult patient should not: - Drive a car, operate machinery or power tools - Drink any alcoholic drinks (not even beer) - Make any important decisions, ie: sign important papers. SEEK MEDICAL CARE IF: You have increased bleeding from your wound. You have redness, swelling, or increasing pain from your wound or in your neck. There is pus coming from your wound. You have an oral temperature above 102 F (38.9 C). There is a bad smell coming from the wound or dressing. You develop lightheadedness or feel faint. You develop numbness, tingling, or muscle spasms in your arms, hands, feet, or face. You have difficulty swallowing. IF YOU HAVE AN EMERGENCY, AND ARE UNABLE TO REACH THE DOCTOR, CALL OR GO TO THE EMERGENCY ROOM. SEEK IMMEDIATE MEDICAL CARE IF: You develop a rash. You have difficulty breathing. You hear whistling noises that come from your chest. You develop a cough that becomes increasingly worse. You develop any reaction or side effects to medicines given. There is swelling in your neck. You develop changes in speech or hoarseness, which is getting worse. MAKE SURE YOU: Understand these instructions. Will watch your condition. Will get help right away if you are not doing well or get worse. Document Released: 11/20/2005 Document Revised: 07/25/2012 Document Reviewed: 07/10/2011 [facility] Patient Information 2015 [facility]. This information is not intended to replace advice given to you by your health care provider. Make sure you discuss any questions you have with your health care provider. Follow Up Care 11/12/2022 11:22:35 With:MARCK HAM DO Address: [address] [place] [address] [place] [phone] When:01/19/2023 12:45:00 Comments:Follow-up as scheduled [facility] 01-07-2023 Note Discharge Instructions Thank you for allowing [facility] to assist you with your healthcare needs. The following is important discharge information regarding your hospital visit. Your Care Team LUIS RAMIREZ DO, Dr. What to do next Follow Up Appointments Follow Up with MARCK HAM DO When 01/19/2023 12:45 PM EDT Why: Follow-up as scheduled Where: [address] [place], [place] [address] [phone] Allergies codeine (NAUSEA) Medications Please ask your primary doctor or pharmacist before taking any other medication not listed, including over the counter drugs, herbal medications, vitamins and or supplements as they may interact with your home medications. What How Much When Instructions Last Dose New acetaminophen-hydrocodone ([place] 325- 5 mg oral tablet) 1 tab(s) by mouth Every 4 hours as needed for as needed for pain Duration: 7 Days Pickup at [facility]/pharmacy #[id number] Unchanged EPINEPHrine (EpiPen 2-Etienne 0.3 mg injectable kit) 0.3 Milligram Intramuscular As Directed as needed for Allergic reaction may repeat if necessary after 5 minutes, go to the emergency department if used. Unchanged herbal/ nutritional product 1 CAP by mouth Every day CURAMED Unchanged magnesium gluconate (magnesium gluconate 250 mg oral tablet) 2 tab(s) by mouth Daily at bedtime Unchanged Misc Medication hormone replacement cream Unchanged multivitamin (Multivitamin) 1 tab(s) by mouth Every day Unchanged omega-3 polyunsaturated fatty acids (Fish Oil 1000 mg oral capsule) 1 cap by mouth Once a day Pharmacy Information [facility]/pharmacy #[id number]: [address] [place], [place] [phone] Please take this list to your next doctor s visit. Bring all medications you take, including over the counter medications, herbals and other supplements with you to your doctor s visit. Patients and families are reminded to discard old lists and to update any records with all medication providers or retail pharmacies. Medication Leaflets acetaminophen and hydrocodone (a SEET a MIN oh fen and riki tevin KOE done) Lortab Elixir, Verdrocet What is the most important information I should know about acetaminophen and hydrocodone? MISUSE OF OPIOID MEDICINE CAN CAUSE ADDICTION, OVERDOSE, OR . Keep the medication in a place where others cannot get to it. Taking opioid medicine during may cause life-threatening withdrawal symptoms in the . Fatal side effects can occur if you use opioid medicine with alcohol, or with other drugs that cause drowsiness or slow your breathing. Stop taking this medicine and call your doctor right away if you have skin redness or a rash that spreads and causes blistering and peeling. What is acetaminophen and hydrocodone? Acetaminophen and hydrocodone is a combination medicine used to relieve moderate to severe pain. Acetaminophen and hydrocodone contains an opioid medicine, and may be habit-forming. Acetaminophen and hydrocodone may also be used for purposes not listed in this medication guide. What should I discuss with my healthcare provider before taking acetaminophen and hydrocodone? You should not use this medicine if you are allergic to acetaminophen or hydrocodone, or if you have: severe asthma or breathing problems; or a blockage in your stomach or intestines. Tell your doctor if you have ever had: breathing problems, sleep apnea (breathing stops during sleep); liver disease; a drug or alcohol addiction; kidney disease; a head injury or seizures; urination problems; or problems with your thyroid, pancreas, or gallbladder. If you use opioid medicine while you are , your baby could become dependent on the drug. This can cause life-threatening withdrawal symptoms in the baby after it is born. Babies born dependent on opioids may need medical treatment for several weeks. Ask a doctor before using opioid medicine if you are . Tell your doctor if you notice severe drowsiness or slow breathing in the nursing baby. How should I take acetaminophen and hydrocodone? Follow all directions on your prescription label. Never take this medicine in larger amounts, or for longer than prescribed. An overdose can damage your liver or cause . Tell your doctor if you feel an increased urge to use more of this medicine. Never share this medicine with another person, especially someone with a history of drug abuse or addiction. MISUSE CAN CAUSE ADDICTION, OVERDOSE, OR . Keep the medicine in a place where others cannot get to it. Selling or giving away this medicine is against the law. Measure liquid medicine carefully. Use the dosing syringe provided, or use a medicine dose-measuring device (not a kitchen spoon). If you need surgery or medical tests, tell the doctor ahead of time that you are using this medicine. You should not stop using this medicine suddenly. Follow your doctor's instructions about tapering your dose. Store at room temperature away from moisture and heat. Keep track of your medicine. You should be aware if anyone is using it improperly or without a prescription. Do not keep leftover opioid medication. Just one dose can cause in someone using this medicine accidentally or improperly. Ask your pharmacist where to locate a drug take-back disposal program. If there is no take-back program, flush the unused medicine down the toilet. What happens if I miss a dose? Since this medicine is used for pain, you are not likely to miss a dose. Skip any missed dose if it is almost time for your next dose. Do not use two doses at one time. What happens if I overdose? Seek emergency medical attention or call the Poison Help line at . An overdose of this medicine can be fatal, especially in a child or other person using the medicine without a prescription. Overdose symptoms may include nausea, vomiting, sweating, severe drowsiness, pinpoint pupils, slow breathing, or no breathing. Your doctor may recommend you get naloxone (a medicine to reverse an opioid overdose) and keep it with you at all times. A person caring for you can give the naloxone if you stop breathing or don't wake up. Your caregiver must still get emergency medical help and may need to perform CPR (cardiopulmonary resuscitation) on you while waiting for help to arrive. Anyone can buy naloxone from a pharmacy or local health department. Make sure any person caring for you knows where you keep naloxone and how to use it. What should I avoid while taking acetaminophen and hydrocodone? Avoid driving or operating machinery until you know how this medicine will affect you. Dizziness or drowsiness can cause falls, accidents, or severe injuries. Do not drink alcohol. Dangerous side effects or could occur. Ask a doctor or pharmacist before using any other medicine that may contain acetaminophen (sometimes abbreviated as APAP). Taking certain medications together can lead to a fatal overdose. What are the possible side effects of acetaminophen and hydrocodone? Get emergency medical help if you have signs of an allergic reaction: hives; difficulty breathing; swelling of your face, lips, tongue, or throat. Opioid medicine can slow or stop your breathing, and may occur. A person caring for you should give naloxone and/or seek emergency medical attention if you have slow breathing with long pauses, blue colored lips, or if you are hard to wake up. In rare cases, acetaminophen may cause a severe skin reaction that can be fatal. This could occur even if you have taken acetaminophen in the past and had no reaction. Stop taking this medicine and call your doctor right away if you have skin redness or a rash that spreads and causes blistering and peeling. Call your doctor at once if you have: noisy breathing, sighing, shallow breathing, breathing that stops; a light-headed feeling, like you might pass out; liver problems--nausea, upper stomach pain, tiredness, loss of appetite, dark urine, jada-colored stools, jaundice (yellowing of the skin or eyes); low cortisol levels-- nausea, vomiting, loss of appetite, dizziness, worsening tiredness or weakness; o high levels of serotonin in the body--agitation, hallucinations, fever, sweating, shivering, fast heart rate, muscle stiffness, twitching, loss of coordination, nausea, vomiting, diarrhea. Serious breathing problems may be more likely in older adults and in those who are debilitated or have wasting syndrome or chronic breathing disorders. Common side effects include: dizziness, drowsiness, feeling tired; nausea, vomiting, stomach pain; constipation; or headache. This is not a complete list of side effects and others may occur. Call your doctor for medical advice about side effects. You may report side effects to FDA at 1-810-BOH-2862. What other drugs will affect acetaminophen and hydrocodone? You may have breathing problems or withdrawal symptoms if you start or stop taking certain other medicines. Tell your doctor if you also use an antibiotic, antifungal medication, heart or blood pressure medication, seizure medication, or medicine to treat HIV or hepatitis C. Opioid medication can interact with many other drugs and cause dangerous side effects or . Be sure your doctor knows if you also use: cold or allergy medicines, bronchodilator asthma/COPD medication, or a diuretic ('water pill'); medicines for motion sickness, irritable bowel syndrome, or overactive bladder; other opioids--opioid pain medicine or prescription cough medicine; a sedative like Valium--diazepam, alprazolam, lorazepam, Xanax, Klonopin, Versed, and others; drugs that make you sleepy or slow your breathing--a sleeping pill, muscle relaxer, medicine to treat mood disorders or mental illness; drugs that affect serotonin levels in your body--a stimulant, or medicine for depression, Parkinson's disease, migraine headaches, serious infections, or nausea and vomiting. This list is not complete. Other drugs may affect acetaminophen and hydrocodone, including prescription and paeb-bgu-oknfzyr medicines, vitamins, and herbal products. Not all possible interactions are listed here. Where can I get more information? Your doctor or pharmacist can provide more information about acetaminophen and hydrocodone. Remember, keep this and all other medicines out of the reach of children, never share your medicines with others, and use this medication only for the indication prescribed. Every effort has been made to ensure that the information provided by [employer]. [employer]') is accurate, up-to-date, and complete, but no guarantee is made to that effect. Drug information contained herein may be time sensitive. [employer] information has been compiled for use by healthcare practitioners and consumers in the [place] and therefore [employer] does not warrant that uses outside of the [place] are appropriate, unless specifically indicated otherwise. [employer] drug information does not endorse drugs, diagnose patients or recommend therapy. [employer] drug information is an informational resource designed to assist licensed healthcare practitioners in caring for their patients and/or to serve consumers viewing this service as a supplement to, and not a substitute for, the expertise, skill, knowledge and judgment of healthcare practitioners. The absence of a warning for a given drug or drug combination in no way should be construed to indicate that the drug or drug combination is safe, effective or appropriate for any given patient. [employer] does not assume any responsibility for any aspect of healthcare administered with the aid of information [employer] provides. The information contained herein is not intended to cover all possible uses, directions, precautions, warnings, drug interactions, allergic reactions, or adverse effects. If you have questions about the drugs you are taking, check with your doctor, nurse or pharmacist. Copyright 9200-7115 [facility] [employer]. Version: 19.. Revision Date: 01/04/2023. ibuprofen (EYE bue PROE fen) Advil, Advil Migraine, Alivio, Children's Advil, Children's Ibuprofen Paz, Children's Motrin, Genpril, IBU, Ibuprohm, Motrin Childrens, Motrin IB, Motrin IB Migraine, Motrin Infant Drops, Motrin Migraine Pain, Proprinal, Wal-Profen What is the most important information I should know about ibuprofen? Ibuprofen can increase your risk of fatal heart attack or stroke. Do not use this medicine just before or after heart bypass surgery (coronary artery bypass graft, or CABG). Ibuprofen may also cause stomach or intestinal bleeding, which can be fatal. What is ibuprofen? Ibuprofen is a nonsteroidal anti-inflammatory drug (NSAID). Ibuprofen is used to reduce fever and treat pain or inflammation caused by many conditions such as headache, toothache, back pain, arthritis, menstrual cramps, or minor injury. This medicine is used in adults and children who are at least 6 months old. Ibuprofen may also be used for purposes not listed in this medication guide. What should I discuss with my healthcare provider before taking ibuprofen? Ibuprofen can increase your risk of fatal heart attack or stroke, even if you don't have any risk factors. Do not use this medicine just before or after heart bypass surgery (coronary artery bypass graft, or CABG). Ibuprofen may also cause stomach or intestinal bleeding, which can be fatal. These conditions can occur without warning while you are using ibuprofen, especially in older adults. You should not use ibuprofen if you are allergic to it, or if you have ever had an asthma attack or severe allergic reaction after taking aspirin or an NSAID. Ask a doctor or pharmacist if this medicine is safe to use if you have ever had: heart disease, high blood pressure, high cholesterol, diabetes, or if you smoke; a heart attack, stroke, or blood clot; stomach ulcers or bleeding; liver or kidney disease; asthma; or if you take aspirin to prevent heart attack or stroke. Ask a doctor before using this medicine if you are or . If you are , you should not take ibuprofen unless your doctor tells you to. Taking an NSAID during the last 20 weeks of can cause serious heart or kidney problems in the unborn baby and possible complications with your . Do not give ibuprofen to a child younger than 6 months old without the advice of a doctor. How should I take ibuprofen? Use exactly as directed on the label, or as prescribed by your doctor. Use the lowest dose that is effective in treating your condition. An ibuprofen overdose can damage your stomach or intestines. The maximum amount of ibuprofen for adults is 800 milligrams per dose or 3200 mg per day (4 maximum doses). A child's dose of ibuprofen is based on the age and weight of the child. Carefully follow the dosing instructions provided with children's ibuprofen for the age and weight of your child. Ask a doctor or pharmacist if you have questions. Take ibuprofen with food or milk to lessen stomach upset. Shake the oral suspension (liquid) before you measure a dose. Use the dosing syringe provided, or use a medicine dose-measuring device (not a kitchen spoon). You must chew the chewable tablet before you swallow it. Store at room temperature away from moisture and heat. Do not allow the liquid medicine to freeze. What happens if I miss a dose? Since ibuprofen is used when needed, you may not be on a dosing schedule. Skip any missed dose if it's almost time for your next dose. Do not use two doses at one time. What happens if I overdose? Seek emergency medical attention or call the Poison Help line at . Overdose symptoms may include nausea, vomiting, stomach pain, drowsiness, black or bloody stools, coughing up blood, shallow breathing, fainting, or coma. What should I avoid while taking ibuprofen? Ask a doctor or pharmacist before using other medicines for pain, fever, swelling, or cold/flu symptoms. They may contain ingredients similar to ibuprofen (such as aspirin, ibuprofen, ketoprofen, or naproxen). Avoid taking aspirin unless your doctor tells you to. If you also take aspirin to prevent stroke or heart attack, taking ibuprofen can make aspirin less effective in protecting your heart and blood vessels. If you take both medicines, take ibuprofen at least 8 hours before or 30 minutes after you take aspirin (non-enteric coated form). Avoid drinking alcohol. It may increase your risk of stomach bleeding. What are the possible side effects of ibuprofen? Get emergency medical help if you have signs of an allergic reaction (hives, difficult breathing, swelling in your face or throat) or a severe skin reaction (fever, sore throat, burning eyes, skin pain, red or purple skin rash with blistering and peeling). Get emergency medical help if you have signs of a heart attack or stroke: chest pain spreading to your jaw or shoulder, sudden numbness or weakness on one side of the body, slurred speech, leg swelling, feeling short of breath. Stop using ibuprofen and call your doctor at once if you have: changes in your vision; shortness of breath (even with mild exertion); swelling or rapid weight gain; a skin rash, no matter how mild; signs of stomach bleeding--bloody or tarry stools, coughing up blood or vomit that looks like coffee grounds; liver problems--nausea, upper stomach pain, itching, tired feeling, flu-like symptoms, loss of appetite, dark urine, jada-colored stools, jaundice (yellowing of the skin or eyes); low red blood cells (anemia)--pale skin, feeling light-headed or short of breath, rapid heart rate, trouble concentrating; or kidney problems--little or no urinating, painful or difficult urination, swelling in your feet or ankles, feeling tired or short of breath. Common side effects may include: nausea, vomiting, gas; bleeding; or dizziness, headache. This is not a complete list of side effects and others may occur. Call your doctor for medical advice about side effects. You may report side effects to FDA at 4-628-USB-9558. What other drugs will affect ibuprofen? Ask your doctor before using ibuprofen if you take an antidepressant. Taking certain antidepressants with an NSAID may cause you to bruise or bleed easily. Ask a doctor or pharmacist before using ibuprofen with any other medications, especially: cyclosporine; lithium; methotrexate; a blood thinner (warfarin, Coumadin, Jantoven); heart or blood pressure medication, including a diuretic or 'water pill'; or steroid medicine (such as prednisone). This list is not complete. Other drugs may affect ibuprofen, including prescription and kvik-srs-nezotei medicines, vitamins, and herbal products. Not all possible drug interactions are listed here. Where can I get more information? Your pharmacist can provide more information about ibuprofen. Remember, keep this and all other medicines out of the reach of children, never share your medicines with others, and use this medication only for the indication prescribed. Every effort has been made to ensure that the information provided by [employer]. ('[employer]') is accurate, up-to-date, and complete, but no guarantee is made to that effect. Drug information contained herein may be time sensitive. [employer] information has been compiled for use by healthcare practitioners and consumers in the [place] and therefore [employer] does not warrant that uses outside of the [place] are appropriate, unless specifically indicated otherwise. [employer]'s drug information does not endorse drugs, diagnose patients or recommend therapy. [employer] drug information is an informational resource designed to assist licensed healthcare practitioners in caring for their patients and/or to serve consumers viewing this service as a supplement to, and not a substitute for, the expertise, skill, knowledge and judgment of healthcare practitioners. The absence of a warning for a given drug or drug combination in no way should be construed to indicate that the drug or drug combination is safe, effective or appropriate for any given patient. [employer] does not assume any responsibility for any aspect of healthcare administered with the aid of information [employer] provides. The information contained herein is not intended to cover all possible uses, directions, precautions, warnings, drug interactions, allergic reactions, or adverse effects. If you have questions about the drugs you are taking, check with your doctor, nurse or pharmacist. Copyright 5896-8441 [employer]. Version: 24.. Revision Date: 12/16/2022. Education Materials General Anesthesia, Adult, Care After This sheet gives you information about how to care for yourself after your procedure. Your health care provider may also give you more specific instructions. If you have problems or questions, contact your health care provider. What can I expect after the procedure? After the procedure, the following side effects are common: Pain or discomfort at the IV site. Nausea. Vomiting. Sore throat. Trouble concentrating. Feeling cold or chills. Weak or tired. Sleepiness and fatigue. Soreness and body aches. These side effects can affect parts of the body that were not involved in surgery. Follow these instructions at home: For at least 24 hours after the procedure: Have a responsible adult stay with you. It is important to have someone help care for you until you are awake and alert. Rest as needed. Do not: ? Participate in activities in which you could fall or become injured. ? Drive. ? Use heavy machinery. ? Drink alcohol. ? Take sleeping pills or medicines that cause drowsiness. ? Make important decisions or sign legal documents. ? Take care of children on your own. Eating and drinking Follow any instructions from your health care provider about eating or drinking restrictions. When you feel hungry, start by eating small amounts of foods that are soft and easy to digest (bland), such as toast. Gradually return to your regular diet. Drink enough fluid to keep your urine pale yellow. If you vomit, rehydrate by drinking water, juice, or clear broth. General instructions If you have sleep apnea, surgery and certain medicines can increase your risk for breathing problems. Follow instructions from your health care provider about wearing your sleep device: ? Anytime you are sleeping, including during daytime naps. ? While taking prescription pain medicines, sleeping medicines, or medicines that make you drowsy. Return to your normal activities as told by your health care provider. Ask your health care provider what activities are safe for you. Take hnxw-gyk-aznyyht and prescription medicines only as told by your health care provider. If you smoke, do not smoke without supervision. Keep all follow-up visits as told by your health care provider. This is important. Contact a health care provider if: You have nausea or vomiting that does not get better with medicine. You cannot eat or drink without vomiting. You have pain that does not get better with medicine. You are unable to pass urine. You develop a skin rash. You have a fever. You have redness around your IV site that gets worse. Get help right away if: You have difficulty breathing. You have chest pain. You have blood in your urine or stool, or you vomit blood. Summary After the procedure, it is common to have a sore throat or nausea. It is also common to feel tired. Have a responsible adult stay with you for the first 24 hours after general anesthesia. It is important to have someone help care for you until you are awake and alert. When you feel hungry, start by eating small amounts of foods that are soft and easy to digest (bland), such as toast. Gradually return to your regular diet. Drink enough fluid to keep your urine pale yellow. Return to your normal activities as told by your health care provider. Ask your health care provider what activities are safe for you. This information is not intended to replace advice given to you by your health care provider. Make sure you discuss any questions you have with your health care provider. Document Released: 08/09/2001 Document Revised: 05/06/2018 Document Reviewed: 12/17/2017 [employer] Patient Education 2020 [employer] EXCISION THYROGLOSSAL DUCT CYST Care After Refer to this sheet in the next few weeks. These instructions provide you with general information on caring for yourself after you leave the hospital. Your treatment has been planned according to the most current medical practices available, but problems sometimes occur. Call your caregiver if you have any questions or concerns regarding your care of comfort HOME CARE INSTRUCTIONS 1. 1-3 days minimal activity then activity as tolerated. No heavy lifting for 3 weeks. 2. Regular diet. Advance diet as tolerated. 3. Keep area clean and dry. 4. Apply ice compresses intermittently for 24-48 hours. 5. If there is any odor or discharge, please call the office. 6. Continue with all mediations ordered at least until your seen. 7. Remain off work 1 week. FOR PATIENTS WHO HAVE HAD GENERAL ANESTHESIA: The medicine used to put you to sleep will be acting in your body for the next 24 hours, so you might feel a little sleepy. This feeling will slowly wear off. Because the medicine is still in your system, for the next 24 hours, the adult patient should not: - Drive a car, operate machinery or power tools - Drink any alcoholic drinks (not even beer) - Make any important decisions, ie: sign important papers. SEEK MEDICAL CARE IF: You have increased bleeding from your wound. You have redness, swelling, or increasing pain from your wound or in your neck. There is pus coming from your wound. You have an oral temperature above 102 F (38.9 C). There is a bad smell coming from the wound or dressing. You develop lightheadedness or feel faint. You develop numbness, tingling, or muscle spasms in your arms, hands, feet, or face. You have difficulty swallowing. IF YOU HAVE AN EMERGENCY, AND ARE UNABLE TO REACH THE DOCTOR, CALL OR GO TO THE EMERGENCY ROOM. SEEK IMMEDIATE MEDICAL CARE IF: You develop a rash. You have difficulty breathing. You hear whistling noises that come from your chest. You develop a cough that becomes increasingly worse. You develop any reaction or side effects to medicines given. There is swelling in your neck. You develop changes in speech or hoarseness, which is getting worse. MAKE SURE YOU: Understand these instructions. Will watch your condition. Will get help right away if you are not doing well or get worse. Document Released: 11/20/2005 Document Revised: 07/25/2012 Document Reviewed: 07/10/2011 ExitCare Patient Information 2015 [employer] [facility]. This information is not intended to replace advice given to you by your health care provider. Make sure you discuss any questions you have with your health care provider. Additional Information VACCINATE! IT SAVES LIVES! Members of the community who have not yet received the COVID-19 vaccine and would like to receive it can visit one of [facility] vaccine clinics. There are many vaccine clinic locations within the [facility]. For locations and available times, please visit [email or web address] hio.[email or web address] It is important to note that some COVID mobile vaccine clinics are held outdoors and may be canceled in rainy or stormy conditions. To learn more about pediatric vaccinations (ages 5-11), we invite you to visit the [facility] webpage. [email or web address]/p [email or web address] To learn more about the COVID-19 vaccine, we invite you to visit the CDC website for a list of frequently asked questions.https://www.cdc.gov/co ronavirus/2019-ncov/vaccines/faq .html [facility] Patient Portal Access Instructions: Stay connected with your healthcare team and access your personal medical information anytime with the [facility] Patient Portal. Please follow the directions below to create your [employer] account: 1.Access the email account you provided upon registration to the hospital/physician office.2.Look for an invitation email from [facility].3.Open the email and access the invitation link: Accept Invitation to [facility].4.Fill in the required buck to create your account. To access your account, visit [email or web address]. Click the blue button labeled "Access Patient Portal" and then log in with the username and password that you created in the steps above. You will be able to view your test results, lab results, a summary of your visits, upcoming appointments and more. There is also a convenient messaging option where you can send secure messages to your provider. In addition, you will have the ability to download any documents or summaries to your computer and/or send the information securely to a physician. Remember that your healthcare information is confidential, so carefully consider who you will allow to register on the [facility] Patient Portal for access to your information. You can also access the [facility] Patient Portal on the [facility]. Simply click on "Patient Portal" and then log into your account. If you would like to receive a full copy of your medical records, please contact the [facility] Medical Records Department by calling [phone], Wednesday through Wednesday between 8 a.m. and 4:30 p.m. HOW TO SAFELY DISPOSE OF PRESCRIPTION MEDICATIONS Please use one of the following methods to safely dispose of your unused medications. 1.Use a drug disposal kit: the drug disposal pouch allows you to safely discard your old and unused drugs. Ask your nurse to give you one when you are discharged.2.Visit a local take-back location: Many local pharmacies and police departments have programs that collect old and unwanted prescription drugs. Call your local pharmacy or go to http://bit.Poq Studio/7X7Tj9u to find one close to you.3.Make use of household items: Use cat litter or old coffee grounds to dispose medications if other options are not available. Mix your drugs with these household products, seal them in an airtight container and throw it into the garbage. Call [facility]: [phone] to be sure your drugs can be disposed of in this way. Some medicines may require a different approach.4.Never flush your medications down the toilet. IF YOU HAVE BEEN PRESCRIBED AN OPIOID FOR PAIN If you have been prescribed an opioid (such as hydrocodone, oxycodone or morphine), it is critical to understand the possible side effects and risks of opioid pain medications. Even when taken as directed, opioids can have several side effects including: Tolerance, meaning you might need to take more of a medication for the same pain relief. Nausea, vomiting and/or constipation. Sleepiness, dizziness, dry mouth, confusion, depression or itching. Physical dependence, meaning you have withdrawal symptoms when a medication is stopped, can develop within a few days. KNOW YOUR RESPONSIBILITIES It is important to know exactly how much and how often to take the opioid pain medications you are prescribed. Never take opioids in higher amounts or more often than prescribed. Do not combine opioids with alcohol or other drugs that cause drowsiness, such as benzodiazepines, also known as benzos, including diazepam and alprazolam, muscle relaxants or sleep aids. Never sell or share prescription opioids. This is illegal. Store opioids in a secure place and out of reach of others (including children, family, friends and visitors). The last page of this document has been signed and retained as a CHART COPY. Signatures Patient Education Materials General Anesthesia, Adult, Care After 9 - AO Thyroidectomy, Care After (01-06-18)(CUSTOM) Medication Leaflets acetaminophen and hydrocodone, ibuprofen 200 mg oral tablet My discharge plan and instructions have been reviewed and explained to me and I,NICOLE CADENA understand my current condition and have read and understand these discharge instructions. I have received a written copy of the plan/instructions. If I have questions, I am aware that I should contact my doctor. 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 Family's history: negative. Review of Systems Ear/Nose/Mouth/Throat: Negative. Respiratory: copd. Cardiovascular: Negative. Gastrointestinal: Negative. Genitourinary: ckd. Endocrine: thyroid mass. Musculoskeletal: Negative. Integumentary: Negative. Neurologic: Negative. Health Status Allergies: Allergic Reactions (Selected) Severity Not Documented Codeine- Nausea., Allergies (1) ActiveReaction codeineNAUSEA Current medications: (Selected) Inpatient Medications Ordered Decadron: 8 mg, 2 mL, IV Push, Once LR 1,000 mL: 20 mL/hr, Intravenous LR 1000 mL: 20 mL/hr, Intravenous Zofran ( PACU ): 4 mg, 2 mL, IV Push, AsDirected, PRN: Nausea/Vomiting morphine ( PACU ): 2 mg, 1 mL, IV Push, q5min, PRN: Pain, scale 4-6 Prescriptions Prescribed EpiPen 2-Etienne 0.3 mg injectable kit: 0.3 mg, Intramuscular, AsDirected, may repeat if necessary after 5 minutes, go to the emergency department if used., PRN: Allergic reaction, 1 kit(s), 0 Refill(s) Documented Medications Documented Fish Oil 1000 mg oral capsule: 1,000 mg, 1 cap(s), Oral, qDay, 90 cap(s), 0 Refill(s) Misc Medication: hormone replacement cream, 0 Refill(s) Multivitamin: 1 tab(s), Oral, Daily, 0 Refill(s) herbal/nutritional product: 1 CAP, Oral, Daily, CURAMED, 0 Refill(s) magnesium gluconate 250 mg oral tablet: 500 mg, 2 tab(s), Oral, qHS, 30 tab(s), 0 Refill(s), Medications (5) Active Scheduled: (1) dexamethasone 4 mg/1 mL solution 8 mg 2 mL, IV Push, Once Continuous: (2) Lactated Ringers 1,000 mL 1,000 mL, Intravenous, 20 mL/hr Lactated Ringers Infusion 1000 mL 1,000 mL, Intravenous, 20 mL/hr PRN: (2) morphine 2 mg/mL 1 mL syringe 2 mg 1 mL, IV Push, q5min ondansetron 2 mg/ 1 mL 2 mL INJ 4 mg 2 mL, IV Push, AsDirected Problem list: Medical Chronic kidney disease, stage 3a / SNOMED CT 8842221571 / Confirmed Chronic obstructive pulmonary disease, unspecified / SNOMED CT 61769866 / Confirmed 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 / SNOMED CT 610179128 / Confirmed Distal interphalangeal nodule / SNOMED CT 1158167799 / Confirmed Allergic reaction, history of / SNOMED CT 8426313317 / Confirmed Abnormal chest xray / SNOMED CT 0998481421 / Confirmed Dermatitis / SNOMED CT 6601747201 / Confirmed Nephrolithiasis / SNOMED CT 726718107 / Confirmed Leukopenia / SNOMED CT 175167833 / Confirmed Neck mass / SNOMED CT 987265272 / Confirmed Thyroid mass / SNOMED CT 3947579409 / Confirmed Finger pain / SNOMED CT 07817152 / Confirmed Respiratory crackles at left lung base / SNOMED CT 920838291 / Confirmed Strep throat / SNOMED CT 54489067 / Confirmed Thyroglossal duct cyst / SNOMED CT 12560500 / Confirmed Trigger middle finger / SNOMED CT 135664985 / Confirmed Urinary calculus / SNOMED CT 4652995895 / Confirmed, Active Problems (17) Abnormal chest xray Allergic reaction, history of Chronic kidney disease, stage 3a Chronic obstructive pulmonary disease, unspecified 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 Appendectomy (256149594). Ectopic , tubal ([id number]). Bowel ([id number]). Comments: 07/18/2020 13:08 Debbie Tang LPN partial bowel resection Trigger fingers of both hands ([id number]). 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 Physical Examination Vital Signs 01/07/2023 13:50 EDT Heart Rate Monitored 76 bpm bpm Respiratory Rate - Anes 10 br/min br/min Systolic Blood Pressure Non-Invasive 82 mmHg mmHg Diastolic Blood Pressure Non-Invasive 58 mmHg mmHg 01/07/2023 13:45 EDT Heart Rate Monitored 73 bpm bpm Respiratory Rate - Anes 10 br/min br/min Systolic Blood Pressure Non-Invasive 100 mmHg mmHg Diastolic Blood Pressure Non-Invasive 66 mmHg mmHg 01/07/2023 13:40 EDT Heart Rate Monitored 86 bpm bpm Respiratory Rate - Anes 0 br/min br/min Systolic Blood Pressure Non-Invasive 90 mmHg mmHg Diastolic Blood Pressure Non-Invasive 59 mmHg mmHg 01/07/2023 13:37 EDT Systolic Blood Pressure Non-Invasive 124 mmHg mmHg Diastolic Blood Pressure Non-Invasive 71 mmHg mmHg 01/07/2023 11:30 EDT Temperature Temporal Artery 36.3 DegC Peripheral Pulse Rate 66 bpm Respiratory Rate 12 br/min LOW Systolic Blood Pressure Non-Invasive 131 mmHg Diastolic Blood Pressure Non-Invasive 76 mmHg Vital Signs(last 24 hrs) Last Charted Heart Rate [id number] bpm (JAN 07 13:50) Resp Rate L 12br/min (JAN 07 11:30) SBP82 mmHg (JAN 07 13:50) DBP58 mmHg (JAN 07 13:50) BMI24.21 (JAN 07 11:37) Measurements from flowsheet : Measurements 01/07/2023 11:37 EDT Body Mass Index 24.21 kg/m2 01/07/2023 11:30 EDT Height 162.6 cm Admission Weight 64 kg [place] Body Weight 54.74 kg Admission Body Mass Index 24.21 m2 Pain assessment: Pain Assessment 01/07/2023 11:30 EDT Primary Pain Intensity 0 Pain Scale Type 0-10 Pain scale . General: Alert and oriented. Airway: Normal temporomandibular joint mobility. Mallampati classification: II (soft palate, fauces, uvula visible). Head: Normocephalic. Dentition Evaluation: Own teeth. Neck: Supple. Respiratory: Lungs are clear to auscultation. Cardiovascular: Normal rate. Heart Sounds: Normal. Gastrointestinal: Soft. Musculoskeletal Normal range of motion. Integumentary: Intact. Neurologic: Alert, Oriented. Review / Management Results review: No qualifying data available , Lab results 01/07/2023 13:59 EDT SN - Proc - Anesthesia Type General, Local 01/07/2023 13:58 EDT SN - CTm - Surgery Start 01/07/2023 13:57 01/07/2023 13:57 EDT SN - PP - Body Position Supine Standard Intra-op 01/07/2023 13:55 EDT acetaminophen Begin Bag 100 mL mg 01/07/2023 13:52 EDT SN - Assess - LOC Alert, Awake SN - Assess - Orientation Oriented X 3 SN - Assess - Post-op Skin Integrity Intact/Dry 01/07/2023 13:52 EDT dexAMETHasone 4 mg mg ondansetron 4 mg mg rocuronium 10 mg mg 01/07/2023 13:50 EDT Heart Rate Monitored 76 bpm bpm Respiratory Rate - Anes 10 br/min br/min Systolic Blood Pressure Non-Invasive 82 mmHg mmHg Diastolic Blood Pressure Non-Invasive 58 mmHg mmHg Oxygen Saturation 100 % % Set Rate Anes 10 br/min br/min 01/07/2023 13:49 EDT SN - GCD - Post-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 SN - GCD - Case Level Level 2 01/07/2023 13:48 EDT SN - [place] - Route of Administration Local SN - [place] - By (Single) SN - [place] - By (Single) SN - [place] - Time Administered 01/07/2023 13:46 01/07/2023 13:46 EDT SN - Proc - Actual Procedure EXCISION OF THYROGLOSSAL DUCT CYST 01/07/2023 13:46 EDT SN - SP - Prep Agents Betadine Scrub, Betadine Solution SN - SP - HR - Method N/A 01/07/2023 13:45 EDT Heart Rate Monitored 73 bpm bpm Respiratory Rate - Anes 10 br/min br/min Systolic Blood Pressure Non-Invasive 100 mmHg mmHg Diastolic Blood Pressure Non-Invasive 66 mmHg mmHg Oxygen Saturation 100 % % Set Rate Anes 10 br/min br/min 01/07/2023 13:41 EDT fentaNYL 100 mcg mcg lidocaine 5 mg mg propofol 200 mg mg rocuronium 40 mg mg 01/07/2023 13:40 EDT SN - CAt - Case Attendee SN - CAt - Case Attendee SN - CAt - Role Performed CHIMNEY REPAIRER 01/07/2023 13:40 EDT Heart Rate Monitored 86 bpm bpm Respiratory Rate - Anes 0 br/min br/min Systolic Blood Pressure Non-Invasive 90 mmHg mmHg Diastolic Blood Pressure Non-Invasive 59 mmHg mmHg Oxygen Saturation 94 % % 01/07/2023 13:37 EDT Systolic Blood Pressure Non-Invasive 124 mmHg mmHg Diastolic Blood Pressure Non-Invasive 71 mmHg mmHg 01/07/2023 13:36 EDT SN - CAt - Case Attendee SN - CAt - Case Attendee SN - CAt - Case Attendee SN - CAt - Case Attendee SN - CAt - Case Attendee SN - CAt - Case Attendee SN - CAt - Case Attendee SN - CAt - Case Attendee SN - CAt - Case Attendee SN - CAt - Case Attendee SN - CAt - Role Performed Primary Surgeon SN - CAt - Role Performed Center Sales And Service Associate 1 SN - CAt - Role Performed Scrub 1 SN - CAt - Role Performed Stand Up Forklift Operator 1 SN - CAt - Role Performed Observer 01/07/2023 13:36 EDT SN - CTm - Anesthesia Start Time Anesthesia Start midazolam 2 mg mg 01/07/2023 11:45 EDT Lactated Ringers Injection Begin Bag 1,000 mL mL 01/07/2023 11:40 EDT SN - Preop - CTm Pt Ready for OR/Proced 01/07/2023 11:40 01/07/2023 11:39 EDT SN - Preop - CTm Pt in SDS Room 01/07/2023 11:23 01/07/2023 11:37 EDT Designated Person #1 We May Share PHI MOLLY CADENA [phone] Designated Person #1 Relationship Spouse Privacy Restrictions Requested None Body Mass Index 24.21 kg/m2 Status No, per patient Sensory Deficits None Sleep Apnea Snore No Sleep Apnea Tired No Sleep Apnea Obstruction No Sleep Apnea Pressure No Sleep Apnea BMI No Sleep Apnea Age Yes Sleep Apnea Neck No Sleep Apnea Gender No Sleep Apnea Score 1 Diagnosed With Sleep Apnea No Advanced Directives No - refuses information Infectious Disease Symptoms Patient states no symptoms Infectious Disease Recent Exposure No Alcohol and Drug Use No Employee of Institutional Living No Health Care Employee No History of Exposure to TB No History of Positive Chest X-Ray for TB No History of Positive TB Skin Test No Homeless No Known Immunosuppression No Recent Immigrant No Resident of Institutional Living No Bloody Sputum No Fatigue No Fever No Loss of Appetite No Night Sweats No Persistent Cough > 3 Weeks No Weight Loss No Patient Aware Date/Time Of Surgery Yes Pre-Op Patient Education NPO after midnight, No makeup, No jewelry, Responsible Democrat, Aware of surgery location, Pre-op education done, 1 bottle CHG wash with instructions given, No ordered medications, SSI prevention handout given SN - Preprocedure Comments Spoke with patient, Verbalizes/Nonverbally indicates understanding Barriers to Learning None evident Teaching Method Explanation Preferred Spoken Language [place] Preferred Written Language [place]er Teaching Evaluation Verbalizes/Nonverbally indicates understanding Safety Brochure Information Reviewed Yes Mone Bradley Video Viewed No Information Given by Patient Patient's Current Physicians Patient's Current Physicians Discharge To, Anticipated Home independently Prev Test Positive/Diagnosis w/COVID-19 Yes Previous COVID-19 Positive Date 2020 Current Quarantine/Isolated any Illness No Any Contact with Sick Animals/Birds No Traveled Anywhere in Last 30 Days Yes Travel Where Within [place] State[place]s) Manoj Lost Weight Unintentionally Recently No Eat Poorly Due to Decreased Appetite No Total MST Score 0 No Personal Devices, Patient Valuables Glasses Anesthesia/Transfusions Prior anesthesia Admission Note-Nursing Same Day Patient History 01/07/2023 11:30 EDT Height 162.6 cm Admission Weight 64 kg [place] Body Weight 54.74 kg Admission Body Mass Index 24.21 m2 Temperature Temporal Artery 36.3 DegC Peripheral Pulse Rate 66 bpm Respiratory Rate 12 br/min LOW Systolic Blood Pressure Non-Invasive 131 mmHg Diastolic Blood Pressure Non-Invasive 76 mmHg Primary Pain Intensity 0 Pain Scale Type 0-10 Pain scale Heart Rhythm Regular Respirations Unlabored Respiratory Pattern Regular Oxygen Therapy Room air Oxygen Saturation 100 % Skin Temperature Warm Skin Description [place] Skin Integrity Intact Mucous Membrane Color [place] Characteristics of Speech Clear Level of Consciousness Alert Strength All Extremities Strong Affect/Behavior Appropriate, Calm, Cooperative Orientation Oriented x 4 Orientation Assessment Oriented x 4 Pt./Caregiver Remote Cont.Visual Monitor Verbalizes/Nonverbally indicates understanding Activity Status ADL Awake Sequential Compression Device bilateral knee high applied/on Standard Safety ID band on, Call device within reach, Bed in low position, Wheels locked, Non-Slip footwear 01/07/2023 11:27 EDT IV Present Present Allergies No Anesthesia Extension Set Applied Yes Economics Instructor On Yes Consent Form Signed Yes Patient Dressed In Hospital gown History & Physical Update On Chart Yes History & Physical On Chart Yes Obstructive Sleep Apnea Assess Completed No Belongings At Bedside Purse, Shoes, Shorts, Undergarments NPO Status Maintained Patient ID Band on and Verified Yes Implants Verified No Pacemaker/AICD Verified No Site Verified by Patient/Family Yes Anesthesia Consent Signed Yes Blood Consent Signed Yes Last Fluid Intake 01/06/2023 23:30 Last Food Intake 01/06/2023 23:30 . Assessment and Plan [place] [employer] Anesthesiologists (ASA) physical status classification: Class II. Anesthetic Preoperative Plan Premedication: intravenous. Anesthetic technique: General. Induction: intravenously. Maintenance airway: Oral endotracheal tube. Postoperative pain management: Per surgeon. Risks discussed: nausea, vomiting, sore throat. Informed consent: signed by patient. Digitally Signed by RITA AUSTIN on 01/07/2023 02:01 [facility] History and physical note DATE OF ADMISSION: SURGEON: Dr. Ham. CHIEF COMPLAINT: Neck mass. FINDINGS: Nicole Cadena presents with a neck mass that is located to the anterior midline neck. This has been present for the last several weeks. This was first noticed after bumping a barbell to the neck area. There have been no overlying skin changes. There is some slight itching to the area, but there is no pain or tenderness. There is no dysphagia, no hoarseness or change in voice. No difficulty swallowing. No throat pain. No heartburn present. The mass was of sudden onset and persists on present date. PFSH. ALLERGIES: No known drug allergies. MEDICATIONS: None. The patient uses a compounded HRT cream daily. PAST MEDICAL HISTORY: Includes anemia, chronic leukopenia, chronic obstructive lung disease, kidney stones and allergic rhinitis. PAST SURGICAL HISTORY: 1. Appendectomy. 2. Laparotomy for ruptured ovarian cyst with incidental appendectomy. 3. Partial bowel obstruction with surgical intervention. SOCIAL HISTORY: The patient is a nonsmoker and nondrinker. FAMILY HISTORY: There is no family history of head or neck cancer. PHYSICAL EXAMINATION: GENERAL: The patient is awake, alert and oriented x3. There are no focal localizing deficits present. The patient is pleasant and cooperative. She communicates and articulates well. She appears well nourished and well hydrated. Observed the facial and cervical skin is intact with no lesions or deformities. HEENT: The external ears and nose are symmetrical. Ears: The left and right external canals are patent. The left and right tympanic membranes are intact with no acute middle ear disease ____. Nose: The nasal mucosa is pink and moist with no intranasal bleeding, purulence, or lesion. OR/OP: The tonsils measure 2/4 with no erythema or exudate. NECK: Supple. The trachea lies midline. There is a mass to the palpable anterior neck suspicious for thyroglossal duct cyst. There is no gross cervical lymphadenopathy. IMPRESSION: Thyroglossal duct cyst. PLAN: We proposed excision of a thyroglossal duct cyst. Risks, benefits and alternatives were presented after which an informed verbal consent was obtained. DO ÁLVARO YO/NARDA JOB#: [id number] DICTATION ID#: [id number] Digitally Signed by MARCK HAM DO on 01/07/2023 12:00 PM [facility] 12-23-2022 Note Sinus rhythm Probable left atrial enlargement Electronic Signature: JORGE KUNZ MD 12/23/2022 18:04:36 [facility] 11-05-2022 Evaluation + Plan note Diagnostic Tests PendingChronic EBV - Panel 11/05/22CMV DNA Detection and Quant 11/05/22[facility] Lab Send out (Blood Specimens) 11/05/22Mycoplasma Antibody 11/05/22Lyme AB Early Disease 11/05/22[facility] Lab Send out (Blood Specimens) 11/04/22[facility] Lab Send out (Blood Specimens) 11/05/22[facility] Lab Send out (Blood Specimens) 11/05/22[facility] Lab Send out (Blood Specimens) 11/05/22[facility] Lab Send out (Blood Specimens) 11/05/22[facility] Lab Send out (Blood Specimens) 11/05/22 Future Scheduled TestsComplete Blood Count 03/05/23[facility] Lab Send out (Blood Specimens) 09/02/22 [facility] 11-03-2022 Evaluation + Plan note Diagnostic Tests PendingDNA Antibody (Double-stranded) 11/03/22 Future Scheduled TestsComplete Blood Count 03/05/23[facility] Lab Send out (Blood Specimens) 09/02/22 [facility] 09-02-2022 Note ORIGINAL EXAMINATION: ULTRASOUND OF THE SOFT TISSUES OF THE HEAD AND NECK09/02/2022 10:20 am COMPARISON: None HISTORY: ORDERING SYSTEM PROVIDED HISTORY: Reason for Exam: midline neck movable large mass or cyst. Noticed after lifting a bar bed 2 weeks ago. FINDINGS: A 2.4 x 2.0 x 1.1 cm centrally near-anechoic and peripherally mixed echogenic structure is present in the midline of the neck between the thyroid and mandible. There are few internal echoes centrally. There is some peripheral vascularity with no internal blood flow. This is approximately 0.4 cm deep to the skin surface and appears to be located within the musculature. IMPRESSION: A 2.4 cm mixed echogenic structure that is centrally cystic at the area of concern could represent an intramuscular hematoma. Other etiologies such as a branchial cleft cyst or thyroglossal duct cyst are considered. A 6-12 week ultrasound follow-up is recommended to assess stability/resolution. I have personally reviewed the images of this examination and agree with the resident's findings and interpretation. Interpreted by: Ramy Roach MD Preliminary Report By: Aime Quinonez Electronically signed By Ramy Roach MD Dictated Date: 09/02/2022 2:18:06 PM Prelim Date: 09/02/2022 2:43:28 PM Sign Date: 09/02/2022 2:43:28 PM Ordering Provider: LUIS RAMIREZ [facility] 09-02-2022 Evaluation + Plan note Future Scheduled TestsMISC Lab Send out (Blood Specimens) 09/02/22 [facility] 09-02-2022 Evaluation + Plan note Future Scheduled TestsComplete Blood Count 03/05/23[facility] Lab Send out (Blood Specimens) 09/02/22 [facility] 09-02-2022 Evaluation + Plan note Future Appointments Future Scheduled TestsComplete Blood Count 03/05/23[facility] Lab Send out (Blood Specimens) 09/02/22 [facility] 09-02-2022 Evaluation + Plan note Future Scheduled TestsBasic Metabolic Panel 04/12/23Complete Blood Count 03/05/23[facility] Lab Send out (Blood Specimens) 09/02/22 [facility] 09-02-2022 Note ORIGINAL EXAMINATION: ULTRASOUND OF THE SOFT TISSUES OF THE HEAD AND NECK09/02/2022 10:20 am COMPARISON: None HISTORY: ORDERING SYSTEM PROVIDED HISTORY: Reason for Exam: midline neck movable large mass or cyst. Noticed after lifting a bar bed 2 weeks ago. FINDINGS: A 2.4 x 2.0 x 1.1 cm centrally near-anechoic and peripherally mixed echogenic structure is present in the midline of the neck between the thyroid and mandible. There are few internal echoes centrally. There is some peripheral vascularity with no internal blood flow. This is approximately 0.4 cm deep to the skin surface and appears to be located within the musculature. IMPRESSION: A 2.4 cm mixed echogenic structure that is centrally cystic at the area of concern could represent an intramuscular hematoma. Other etiologies such as a branchial cleft cyst or thyroglossal duct cyst are considered. A 6-12 week ultrasound follow-up is recommended to assess stability/resolution. I have personally reviewed the images of this examination and agree with the resident's findings and interpretation. Interpreted by: Ramy Roach MD Preliminary Report By: Aime Quinonez Electronically signed By Ramy Roach MD Dictated Date: 09/02/2022 2:18:06 PM Prelim Date: 09/02/2022 2:43:28 PM Sign Date: 09/02/2022 2:43:28 PM Ordering Provider[facility] 11-25-2021 History of Presen t illness Narrative Post Op Bilateral middle finger A1 wilfrido release. Ms.. Cadena is 13 days post op from bilateral middle finger A1 wilfrido releases. Reports minimal pain. she is very pleased with the current progress. No fevers or chills. Physical Exam: Wounds healing well and sutures removed without incident. . Good digital and wrist range of motion. Sensation is intact in all digits. work on extension and motion. Mild swelling in operative digit(s). Assessment: Status post trigger releases, doing well. I discussed with Ms.. Cadena, the hand can get wet but no soaking. The wound will be kept covered and protected until fully closed. Will continue with the prescribed motion program and light use. Wound care and scar massage and desensitization discussed. Given my direct number to call me with any questions or concerns. Follow up as needed. Simran Ernandez RN November 25, 2021 9:33 AM documented in this encounter [facility] 11-18-2021 History of Presen t illness Narrative Post Op Bilateral middle finger A1 wilfrido release. Ms.. Cadena is 6 days post op from bilateral middle finger A1 wilfrido release. e. Reports minimal pain. she is very pleased with the current progress. No fevers or chills. Physical Exam: Wound is healing well. Good digital and wrist range of motion. Sensation is intact in all digits. work on extension and motion. Mild swelling in operative digit(s). Assessment: Status post trigger release, doing well. I discussed with Ms.. Cadena, the hand can get wet but no soaking. The wound will be kept covered and protected after washing. Will continue with the prescribed motion program and light use. she will see me next Wednesday for wound check, sutures out, and progression from there. Return in 3 weeks for a final check, otherwise on a prn basis. Simran Ernandez RN November 18, 2021 10:07 AM documented in this encounter [facility] 10-31-2021 History and physical note PREANESTHESIA CONSULT CLINIC TELEHEALTH VISIT Patient has been identified by name and date of : Yes This is a virtual visit using [employer] video visit. It require patient-provider interaction for the medical decision making as documented below. Reason for contact: [facility] visit Accompanied by: Self Scheduled Surgery: RELEASE TRIGGER FINGER-BILATERAL Subjective CHIEF COMPLAINT: Patient presents with: Anesthesia Consult HPI: 55 year old year old Female presents to [facility] for evaluation. Patient has complaints of stiff locking fingers of bilateral hands. Has been having symptoms >1 year. She has tried injections without lasting relief. Has elected for surgical intervention. ACTIVE PROBLEM LIST Small Bowel Obstruction Due to Adhesions (Hcc) Trigger Finger, Right Little Finger PAST MEDICAL HISTORY Diagnosis Date Female infertility of unspecified origin Female infertility Hemorrhage of gastrointestinal tract, unspecified PMH - PAST MEDICAL HISTORY OF kidney stones Unspecified , without mention of complication, unspecified PAST SURGICAL HISTORY Procedure Laterality Date COLONOSCOPY FLX DX W/COLLJ SPEC WHEN PFRMD 01/07/2012 Colonoscopy CURETTAGE LAPAROSCOPY ENTEROLYSIS SEPARATE PROCEDURE 02/26/15 PAST SURGICAL HISTORY OF 08/19 appendectomy, laparoscopy SALPINGECTOMY left TX ECTOPIC ABDL FAMILY HISTORY Problem Relation Age of Onset Cancer Father Thyroid Hypertension Sister Hyperlipidemia Sister Hypertension Brother Hyperlipidemia Brother Social History Tobacco Use Smoking status: Never Smoker Smokeless tobacco: Never Used Vaping Use Vaping Use: Never used Substance Use Topics Alcohol use: No Drug use: No ALLERGIES Allergen Reactions Codeine Intolerance, GI Upset MEDICATIONS: Current Outpatient Medications Medication Sig Magnesium Glycinate 100 mg tab QUERCETIN DIHYDRATE, BULK, MISC topical cream metered-dose dev luz Hormone replacement cream EPINEPHrine (EPIPEN) 0.3 mg/0.3 mL auto-injector USE DIRECTED NEEDED FOR ALLERGIC REACTION ergocalciferol, vitamin D2, (VITAMIN D2 ORAL) Take by mouth. Iodine liqd DOCOSAHEXANOIC ACID/EPA (FISH OIL ORAL) Take by mouth. MULTIVITAMIN TAB Take one(1) tablet daily. No current facility-administered medications for this visit. COVID VACCINATION STATUS: Fully vaccinated REVIEW OF SYSTEMS: Pain Assessment: General: No weight loss, malaise or fevers. Neuro: No history of TIA's, stroke, [place]EN AIDE tumor, impaired sensorium, hemiplegia, paraplegia or quadraplegia. No neurological symptoms or problems. Respiratory: No history of current cough or dyspnea, or pneumonia in the past 6 weeks. No history of respiratory/pulmonary symptoms or problems. Cardiovascular: No history of HTN requiring medication, no history of angina, CHF, [place], cardiac surgery or stents. Denies rest pain, gangrene or revascularization/amputation for PVD. No history of cardiovascular symptoms or problems. GI: No history of GI symptoms or problems. No history of esophageal varices, recent ascites, or ETOH greater than 2 drinks per day. : No history of dysuria, frequency or incontinence,, stones or chronic kidney disease Endocrine: No history of diabetes. Has not taken steroids within the past 30 days. No history of endocrinological symptoms or problems. Hematology: No history of bleeding or clotting disorder. Pt is not taking anti-coagulation or platelet medications. No history of hematological symptoms or problems. Oncology: No history of CA metastasis, chemo within 30 days, or radiotherapy within 90 days. Has not lost 10% of body wt in 6 months. No history of oncological symptoms or problems. Psych: No history of psychiatric symptoms or problems. Musculoskeletal: See HPI Skin: Negative for lesions, rash and itching. Objective PHYSICAL EXAM: Ht 5' 4" (1.63m) Wt 140 lb (63.5kg) LMP 06/25/2016 BMI 24.02 kg/(m^2). VIDEO EXAM: (if completed, performed via video enabled technology) GENERAL: alert and appropriate, in no distress, well-hydrated, well nourished and happy, smiling, interactive SKIN: no rash noted HEAD: normocephalic, no abnormality or lesion noted OROPHARYNX: moist mucus membranes NECK: full ROM, no cervical LNs noted RESPIRATORY: breathing non-labored CHEST: equal chest rise with normal respiratory effort NEUROLOGIC: no obvious deficit Diagnostic tests reviewed for today's visit: No new labs or tests Impression/Recommendations ASSESSMENT: No problem-specific Assessment & Plan notes found for this encounter. METS: Participate in strenuous sport, such as swimming, singles tennis, football, basketball, or skiing (7.50 METs) Patient denies any chest pain or undue shortness of breath with the above physical activity. ASA Class: 1 ANESTHESIA FINDINGS: Intubation History: No history of difficult intubation Significant Anesthesia Considerations: None Airway Exam: General: Normal appearance Mallampati Score is CLASS II ULBT: Class II - Lower incisors can bite the upper lip below the dory line Neck: Normal appearance and function, Distance from hyoid to mentum during neck extension is at least 3 finger breaths Mouth: Normal tongue size and Mouth opening greater than 2 finger breaths Dentition: Intact Airway History: No abnormal airway history STOP BANG Score: Criteria: Age over 50 (55 year old) Score = 1 PLAN: This patient is optimally prepared for surgery. CONSULTS: Patient does not require consults for optimization at this time. The Following Tests/Procedures Have Been Initiated: Labs not indicated per [facility] protocol, EKG not indicated per [facility] protocol Planned Anesthetic: MAC Instructions Given to Patient: Patient given verbal instructions and voices comprehension and compliance. Copy sent electronically via My Chart, email, or mobile device. This is a virtual visit. It required patient-provider interaction for the medical decision making as documented above. SIGNATURE: Misty Campo APRN.CNP PATIENT NAME: Nicole Cadena DATE: 10/31/21 TIME: October 31, 2021 PAGER/CONTACT #: documented in this encounter [facility] 10-31-2021 Instructions Misty Campo APRN.YINA - 10/31/2021 9:42 AM EDT PATIENT PREOPERATIVE INSTRUCTIONS Blas Gibbons MD has scheduled you for your procedure at this surgery center: [facility]: [phone] -[phone] [address]. Please read below carefully for your personalized instructions. Dietary Restrictions: - No solid food after midnight. - You may have 12 ounces of clear liquids (water, clear juices such as apple juice or gatorade, carbonated beverages, clear tea, black coffee, jello) until 2 hours before scheduled arrival at facility. Medications: Unless instructed differently below, stay on all of your medications until your surgery. Approved medications to take the morning of surgery with a sip of water: NONE If you start any new medications after today's visit, please contact the surgeon's office. Blood Thinning Medications: - Stop NSAIDS (Ibuprofen, Advil, Aleve, Motrin, Celebrex, Mobic, etc.) 7 days before surgery, as directed by your surgeon. - Stop Aspirin 7 days before surgery, as directed by your surgeon. - Stop Vitamin E, ALL multi-vitamins, herbals and dietary supplements 7 days before surgery. - You may take Tylenol (Acetaminophen) or any of your pain medications that do not contain aspirin or NSAIDS as needed. Important Reminders: - Candy, mints, and tobacco products are NOT permitted the morning of surgery. - Hearing aids, dentures and glasses may be worn the morning of surgery. - NO jewelry, body piercings, makeup, hairpins or contacts are to be worn the day of surgery. If you develop symptoms such as a fever, cold, or flu, or have other changes to your health within TWO DAYS of scheduled surgery or the morning of surgery, please contact the surgery center above. Personal Belongings: -Please have photo ID and insurance cards. -If you do not have a copy of advance directives on file with us, please bring a copy with you on the day of surgery. - Leave ALL valuables and money at home or with family members. For Outpatient Procedures: - YOU MUST HAVE A RESPONSIBLE ADULT CAREGIVER TAKE YOU HOME. A TAIL TRIMMER OR SALES ENGINEERING MANAGER CANNOT BE MADE A RESPONSIBLE ADULT CAREGIVER. - We recommend that a responsible person stays with you overnight to take care of you. - You cannot stay in a hotel alone after outpatient surgery. You will not be permitted to have your surgery, if you do not have someone to take care of you. Arrival Time for Surgery: - The Surgery Center or hospital where you are having surgery will call the afternoon before surgery (or Wednesday for Wednesday surgery) with a scheduled arrival time. - If you have not heard by 4 pm, please contact the surgery center above. Please be aware that emergency situations arise, which may delay or change your surgical time. If this happens, we will notify you as soon as possible and regret any inconvenience. If you already have an Advance Directive, please fax a copy to [phone] or email to for it to be added to your chart. If you do not have an Advance Directive, you can find the appropriate form and more information at [email or web address]. We recommend that you complete the Advance Directive form found on the website and bring it with you the day of your surgery. It can be witnessed and scanned into your chart that day. Misty Campo APRN.YINA documented in this encounter [facility] 10-02-2021 Miscellaneous Notes Addended by: SIMRAN ERNANDEZ on: 10/02/2021 01:41 PM Modules accepted: Orders documented in this encounter [facility] 10-02-2021 History of Presen t illness Narrative Follow up: Trigger finger. HPI: Ms.. Cadena returns today for reevaluation of a left middle finger trigger. Last visit we provided CSI (05.29.21). Patients reports symptoms have improved pain mcnamara but she still has mechanical symptoms of catching and locking in her left and also has right middle finger triggering and locking. PAST MEDICAL HISTORY Diagnosis Date Female infertility of unspecified origin Female infertility Hemorrhage of gastrointestinal tract, unspecified PMH - PAST MEDICAL HISTORY OF kidney stones Unspecified , without mention of complication, unspecified Current Outpatient Medications Medication Sig Dispense Refill Magnesium Glycinate 100 mg tab QUERCETIN DIHYDRATE, BULK, MISC topical cream metered-dose dev luz Hormone replacement cream EPINEPHrine (EPIPEN) 0.3 mg/0.3 mL auto-injector USE DIRECTED NEEDED FOR ALLERGIC REACTION ergocalciferol, vitamin D2, (VITAMIN D2 ORAL) Take by mouth. ascorbic acid (VITAMIN C ORAL) Take by mouth. Iodine liqd DOCOSAHEXANOIC ACID/EPA (FISH OIL ORAL) Take by mouth. MULTIVITAMIN TAB Take one(1) tablet daily. 0 No current facility-administered medications for this visit. ALLERGIES Allergen Reactions Codeine Intolerance, GI Upset All medical history, medications and allergies have been discussed with the patient today. ROS: REVIEW OF SYMPTOMS: Constitutional: patient denies any recent fever or significant change in weight Gastrointestinal: patient denies any current abdominal discomfort Musculoskeletal: as noted in the HPI Neurologic: as noted in the HPI SOCIAL HISTORY: Tobacco Use: Never Patient reports no change in past medical & surgical history, medications, allergies, social history, family history and review of systems since last visit Physical Examination: Ms. Cadena is a healthy appearing female in no acute distress. Bilateral upper limbs have equal and intact peripheral pulses. Skin does not demonstrate any rashes or lesions. + tenderness over the left and right middle finger A1 wilfrido and positive clicking of the involved digits, positive locking. The extensor tendons all track centrally. Assessment: Acquired trigger finger of left middle finger (primary encounter diagnosis) Acquired trigger finger of right middle finger Plan: I discussed with Ms. Cadena the diagnosis and different treatment options. We discussed observation, splinting, cortisone injections and surgical release. The elects to proceed with bilateral middle finger trigger finger release surgery. James Rome MD October 02, 2021 12:47 PM Attending Note: I have seen and examined Ms.. Cadena and discussed the patient management with the resident/fellow. The resident's/fellow's progress note has been reviewed, edited, and signed. I was present for any and all procedures performed at this visit. The risks, benefits, alternatives, convalescence and personnel of a bilateral middle finger trigger releases were discussed with the patient in detail. All questions were answered in detail and the patient consents and wishes to proceed. Blas Gibbons MD October 02, 2021 1:12 PM documented in this encounter [facility] Evaluation + Plan note No data available for this section [facility] Evaluation note Diagnosis Acquired trigger finger of left middle finger- Primary Acquired trigger finger of right middle finger [facility] Diagnosis Pre-op evaluation- Primary Preoperative examination, unspecified Trigger finger, unspecified finger, unspecified laterality Acquired trigger finger of left middle finger Acquired trigger finger of right middle finger [facility] Diagnosis Trigger finger, left middle finger- Primary Trigger middle finger of right hand Trigger finger (acquired) [facility] Diagnosis Trigger finger, left middle finger- Primary Trigger middle finger of right hand Trigger finger (acquired) documented [facility] Diagnosis Encounter for gynecological examination (general) (routine) without abnormal findings- Primary Encounter for screening mammogram for breast cancer Screening for cervical cancer Screening for malignant neoplasm of the cervix Special screening examination for human papillomavirus (HPV) Encounter for screening mammogram for breast cancer [facility] Diagnosis Screen for colon cancer- Primary Special screening for malignant neoplasms, colon documented in this encounter [facility] note* Diagnosis Encounter for screening mammogram for breast cancer documented in this encounter [facility] note* Diagnosis Screen for colon cancer Special screening for malignant neoplasms, colon [facility] Diagnosis Hyperlipidemia, unspecified documented in this encounter [facility] Work Phone: Evaluation note* Diagnosis Encounter for gynecological examination (general) (routine) without abnormal findings- Primary Encounter for screening mammogram for breast cancer Dense breast tissue documented in this encounter [facility] Discharge instructions No data available for this section [facility] Progress note No data available for this section [facility] Reason for referral (narrative)* Diagnostic Procedure Only (Routine) - Closed Specialty Diagnoses / Procedures Referred By Contac t Referred To Contact [facility] Diagnoses Encounter for screening mammogram for breast cancer Procedures JOSE SCREENING W KEI SCREENING DIGITAL BREAST TOMOSYNTHESIS BI SCREENING MAMMOGRAPHY BI 2-VIEW BREAST INC Roxanna Bui MD [address] [place] [address] [facility] [address] [place] [address] Referral ID Status Reason Start Date Expiration Date V isits Requested Visits Authorized [id number] Closed Auto-Generate d Referral 12/29/2023 01/27/2025 1 1 [facility] for referral (narrative)* Outpatient Procedure (Routine) - Authorized Specialty Diagnoses / Procedures Referred By Hosea t Referred To Contact [facility] Diagnoses Screen for colon cancer Procedures COLONOSCOPY SCREENING COLONOSCOPY FLX DX W/COLLJ SPEC WHEN Yenifer Castellnao APRN.CNP [address] [place] [address] [facility] [address] [place] [address] Referral ID Status Reason Start Date Expiration Date Visits Requested Visits Authorized [id number] Authorized Auto-Generat ed Referral 01/03/2024 01/02/2025 1 1 [facility] for referral (narrative)* Diagnostic Procedure Only (Routine) - Closed Specialty Diagnoses / Procedures Referred By Hosea t Referred To Contact [facility] Diagnoses Encounter for screening mammogram for breast cancer Procedures JOSE SCREENING W KEI SCREENING DIGITAL BREAST TOMOSYNTHESIS BI SCREENING MAMMOGRAPHY BI 2-VIEW BREAST INC Roxanna Bui MD [address] [place] [address] [facility] [address] [place] [address] Referral ID Status Reason Start Date Expiration Date V isits Requested Visits Authorized [id number] Closed Auto-Generate d Referral 12/29/2023 01/27/2025 1 1 [facility] for referral (narrative)* Outpatient Procedure (Routine) - Closed Specialty Diagnoses / Procedures Referred By Hosea barbosa Referred To Contact [facility] Diagnoses Screen for colon cancer Procedures COLONOSCOPY SCREENING COLONOSCOPY FLX DX W/COLLJ SPEC WHEN Yenifer Castellano APRN.SQL SERVER CONSULTANT [address] [place] [address] [facility] [address] [place] [id number] Referral ID Status Reason Start Date Expiration Date V isits Requested Visits Authorized [id number] Closed Auto-Generate d Referral 01/03/2024 01/02/2025 1 1 [facility] for visit Narrative* Diagnostic Procedure Only (Routine) - Closed Specialty Diagnoses / Procedures Referred By Hosea barbosa Referred To Contact [facility] Diagnoses Encounter for screening mammogram for breast cancer Procedures JOSE SCREENING W KEI SCREENING DIGITAL BREAST TOMOSYNTHESIS BI SCREENING MAMMOGRAPHY BI 2-VIEW BREAST INC CAD Roxanna Chapa MD [address] [place] [address] [facility] [address] [place] [phone] Referral ID Status Reason Start Date Expiration Date V isits Requested Visits Authorized [id number] Closed Auto-Generate d Referral 12/29/2023 01/27/2025 1 1 [facility] for visit Narrative* Outpatient Procedure (Routine) - Closed Specialty Diagnoses / Procedures Referred By Hosea barbosa Referred To Contact [facility] Diagnoses Screen for colon cancer Procedures COLONOSCOPY SCREENING COLONOSCOPY FLX DX W/COLLJ SPEC WHEN Yenifer Castellano APRN.SQL SERVER CONSULTANT [address] [place] [address] [facility] [address] [address] Referral ID Status Reason Start Date Expiration Date V isits Requested Visits Authorized [id number] Closed Auto-Generate d Referral 01/03/2024 01/02/2025 1 1 [facility] for visit Narrative* Imaging (Routine) - Pending Review Specialty Diagnoses / Procedures Referred By Contravindra t Referred To Contact [facility] Diagnoses Hyperlipidemia, unspecified Procedures CT cardiac scoring wo IV contrast Mateo Gracia MD [address] [place] [address] Phone: tel: fax: Referral ID Status Reason Start Date Expiration Date Visits Requested Visits Authorized [id number] Pending Review Perform Procedure 4 03/01/2025 1 1 [facility] Work Phone: Advance Directives No Advanced Directives Records FoundDocuments on File Type Date Recorded 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 Advance Directive(s) 11/12/2021 6:56 AM Advance Directive(s) 11/05/2021 9:18 AM Advance Directive(s) 11/03/2021 1:58 PM Documents on File Type Date Recorded 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 Advance Directive(s) 11/03/2021 1:58 PM Documents on File Type Date Recorded 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 Advance Directive(s) 11/03/2021 1:58 PM Summary Purpose Family History No Family History Records Found Additional Source Comments Source Comments (unrecognize d section and content) In the event this informatio n is protected by the Federal Confidentiality of Alcohol and Drug Abuse Patient Records regulations: The Federal rules restrict any use of the information to criminally investigate or prosecute any alcohol or drug abuse patient.[facility] the event this information is protected by the Federal Confidentiality of Alcohol and Drug Abuse Patient Records regulations: The Federal rules restrict any use of the information to criminally investigate or prosecute any alcohol or drug abuse patient.[facility] Center[facility] the event this information is protected by the Federal Confidentiality of Alcohol and Drug Abuse Patient Records regulations: The Federal rules restrict any use of the information to criminally investigate or prosecute any alcohol or drug abuse patient.[facility] Center[facility] the event this information is protected by the Federal Confidentiality of Alcohol and Drug Abuse Patient Records regulations: The Federal rules restrict any use of the information to criminally investigate or prosecute any alcohol or drug abuse patient.[facility] Center[facility] the event this information is protected by the Federal Confidentiality of Alcohol and Drug Abuse Patient Records regulations: The Federal rules restrict any use of the information to criminally investigate or prosecute any alcohol or drug abuse patient.[facility] Center[facility] the event this information is protected by the Federal Confidentiality of Alcohol and Drug Abuse Patient Records regulations: The Federal rules restrict any use of the information to criminally investigate or prosecute any alcohol or drug abuse patient.[facility] Center[facility] the event this information is protected by the Federal Confidentiality of Alcohol and Drug Abuse Patient Records regulations: The Federal rules restrict any use of the information to criminally investigate or prosecute any alcohol or drug abuse patient.[facility] Center[facility] the event this information is protected by the Federal Confidentiality of Alcohol and Drug Abuse Patient Records regulations: The Federal rules restrict any use of the information to criminally investigate or prosecute any alcohol or drug abuse patient.[facility] Center[facility] the event this information is protected by the Federal Confidentiality of Alcohol and Drug Abuse Patient Records regulations: The Federal rules restrict any use of the information to criminally investigate or prosecute any alcohol or drug abuse patient.[facility] Center[facility] the event this information is protected by the Federal Confidentiality of Alcohol and Drug Abuse Patient Records regulations: The Federal rules restrict any use of the information to criminally investigate or prosecute any alcohol or drug abuse patient.[facility] Center[facility] the event this information is protected by the Federal Confidentiality of Alcohol and Drug Abuse Patient Records regulations: The Federal rules restrict any use of the information to criminally investigate or prosecute any alcohol or drug abuse patient.[facility] CenterIn the event this information is protected by the Federal Confidentiality of Alcohol and Drug Abuse Patient Records regulations: The Federal rules restrict any use of the information to criminally investigate or prosecute any alcohol or drug abuse patient.[facility] Center[facility] the event this information is protected by the Federal Confidentiality of Alcohol and Drug Abuse Patient Records regulations: The Federal rules restrict any use of the information to criminally investigate or prosecute any alcohol or drug abuse patient.[facility] Reason for Visit (unrecogniz ed section and content) Reason Comments Established Patient Pain Reason Comments Anesthesia Consult Reason Comments Well Woman Reason Comments Consult COLONOSCOPY Care Team (unrecognized sect ion and content) Care Team Personnel Name: Yakelin Toure Clerefrain Ross PT 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 Role: Other Name: LUIS RAMIREZ DO Position: P4 Physician - Primary Care Member Role: Primary Care Physician Address: Address: [address] [place] [id number] [place] [address] Care Team Related Persons Name: MOLLY CADENA Address: Home [address] [place] [phone] Patient Care team informatio n (unrecognized section and content) Search Planner Relationship Specialty Start Date End Date Luis Ramirez DO [address] [place] [address] PCP - General Family Medicine 01/03/24 Search Planner Relationship Specialty Start Date End Date Luis Ramirez DO [address] [place] [address] PCP - General Family Medicine 01/03/24 Search Planner Relationship Specialty Start Date End Date Luis Ramirez DO [address] [place] [address] PCP - General Family Medicine 01/03/24 Search Planner Relationship Specialty Start Date End Date Luis Ramirez DO [address] [place] [address] PCP - General Family Medicine 01/03/24 Search Planner Relationship Specialty Start Date End Date Luis Ramirez DO [address] [place] [address] PCP - General Family Medicine 01/03/24 Search Planner Relationship Specialty Start Date End Date Luis Ramirez DO [address] [place] [address] PCP - General Family Medicine 01/03/24 INFORMATION SOURCE (unrecogn ized section and content) DATE CREATED AUTHOR 05/02/2023 [facility] ([place]) DATE CREATED AUTHOR AUTHOR'S ORGANIZ ATION 04/10/2024 [facility] DATE CREATED AUTHOR AUTHOR'S ORGANIZ ATION 01/01/2025 [facility] DATE CREATED AUTHOR AUTHOR'S ORGANIZ ATION 02/09/2025 [facility] DATE CREATED AUTHOR AUTHOR'S ORGANIZ ATION 03/21/2025 [facility] FOR RECORDS PERTAINING TO PATIENTS WHO ARE OR HAVE BEEN ENROLLED IN A CHEMICAL DEPENDENCY/SUBSTANCEABUSE PROGRAM, SOME INFORMATION MAY BE OMITTED. This clinical summary was aggregated from multiple sources. Caution should be exercised in using it in the provision of clinical care. This summary normalizes information from multiple sources, and as a consequence, information in this document may materially change the coding, format and clinical context of patient data. In addition, data may be omitted in some cases. CLINICAL DECISIONS SHOULD BE BASED ON THE PRIMARY CLINICAL RECORDS. [employer] provides no warranty or guarantee of the accuracy or completeness of information in this document.
== END | disposition home or self-care (01) ==
PROVIDERS: PCP Student in an Organized Health Care Education/Training Program
DX: J98.4 Other disorders of lung (principal); R06.02 Shortness of breath; R79.81 Abnormal blood-gas level
CPT/HCPCS: 94060; 94726; 94729